=== PATIENT | female | born 1960 | race Caucasian/White ===

== ENCOUNTER → 2016-08-17 | Outpatient (CLI) | payer MEDICARE, OTHER ==
--- NOTE | 2016-08-17 15:57 | CT ---
EXAMINATION TYPE: CT brain wo con DATE OF EXAM: 08/17/2016 3:48 PM COMPARISON: 01/31/2014 HISTORY: 56-year-old female with headache and history of subdural hematoma and aneurysms. TECHNIQUE: Examination was done in axial plane without intravenous contrast. Coronal and sagittal reconstructio ns performed. CT DLP: 968.0 mGycm Automated exposure control for dose reduction was used. FINDINGS: Postsurgical changes of right frontal craniotomy and right frontoparietal and right parietal meka hol es. There is some aneurysmal clipping in the anterior aspect of the right middle cranial fossa in the MCA distribution. There is no evidence of acute intracranial hemorrhage, acute ischemic changes, mass, mass-effect, or extra-axial fluid collection. There is no effacement of cerebral sulci or basal subarachnoid cister ns. There is no hydrocephalus. There is no midline shift. Garrido-white matter distinction is preserv ed. Paranasal sinuses and mastoid air cells are well pneumatized. Orbits and globes are intact. IMPRESSION: Stable exam status post right frontal craniotomy and additional right-sided meka holes. No acute intr acranial abnormality seen.
== END | disposition home or self-care (01) ==
LOC: RADCTMAIN 15:31
PROVIDERS: ATTEND Family Medicine
DX: R51 Headache (principal); Z98.890 Other specified postprocedural states
CPT/HCPCS: 70450

== ENCOUNTER 2017-09-25 10:40 | Inpatient (IN) | payer MEDICARE, OTHER ==
[2017-09-25] MEDS ORDERED: SODIUM CHLORIDE 0.9% 1,000 ML IV STA (11:15)
[2017-09-25] MEDS ORDERED: ASPIRIN 325 MG TAB PO STA (11:16)
[2017-09-25] MEDS ORDERED: LORazepam 2 MG/ML INJ IV STA (11:16)
--- NOTE | 2017-09-25 11:19 | ED ---
General Adult HPI <Don Figueredo - Last Filed: 09/25/17 13:32> - General Source: patient, EMS, RN notes reviewed, old records reviewed Mode of arrival: EMS Limitations: no limitations <Shannon Saravia - Last Filed: 09/25/17 14:01> - General Chief complaint: Altered Mental Status Stated complaint: Hypertension Time Seen by Provider: 09/25/17 10:56 - History of Present Illness Initial comments: This patient is a 57-year-old female presents emergency department today chief complaint of chest pain, shortness of breath, and severe anxiety. Patient reports that on Tuesday she drank alcohol for the first time in 30 years. She states that she did not take her high blood pressure medicine and anxiety medications prior to that because she was drinking. She reports that she became very intoxicated. Patient states that on Tuesday she's had multiple episodes of vomiting, and last night she started to develop chest pain and shortness of breath. She reports that she thinks this may slightly be related to anxiety as patient is upset that she drank alcohol for the first time in 30 years. Patient reports that she has no previous cardiac history. She states that she feels very nauseated. She reports that she did not sleep all night due to vomiting, in the chest pain. (Shannon Saravia) - Related Data Home Medications Medication Instructions Recorded Confirmed Leflunomide [Arava] 20 mg PO DAILY 09/13/15 09/25/17 ALPRAZolam [Xanax] 1 mg PO TID PRN 09/25/17 09/25/17 Albuterol Inhaler [Ventolin Hfa 1 - 2 puff INHALATION RT-Q6H PRN 09/25/17 Inhaler] Amlodipine Unknown Dose 1 tab PO DAILY 09/25/17 09/25/17 Cyclobenzaprine [Flexeril] 10 mg PO TID PRN 09/25/17 09/25/17 Hydroxychloroquine Sulfate 200 mg PO BID 09/25/17 09/25/17 [Plaquenil] Levothyroxine Sodium [Synthroid] 137 mcg PO DAILY 09/25/17 09/25/17 Methotrexate Sodium [Methotrexate] 15 mg PO TH 09/25/17 09/25/17 Prochlorperazine [Compazine] 10 mg PO TID PRN 09/25/17 09/25/17 QUEtiapine FUMARATE [SEROquel] 600 mg PO HS 09/25/17 09/25/17 Sertraline [Zoloft] 100 mg PO BID 09/25/17 09/25/17 Allergies Allergy/AdvReac Type Severity Reaction Status Date / Time No Known Allergies Allergy Verified 09/25/17 10:51 Review of Systems ROS Other: All systems not noted in ROS Statement are negative. <Don Figueredo - Last Filed: 09/25/17 13:32> ROS Other: All systems not noted in ROS Statement are negative. <Shannon Saravia - Last Filed: 09/25/17 14:01> ROS Statement: Those systems with pertinent positive or pertinent negative responses have been documented in the HPI. Past Medical History Past Medical History: Thyroid Disorder Additional Past Medical History / Comment(s): ATHRITIS, VERTIGO, cerebral aneurysm, subdural History of Any Multi-Drug Resistant Organisms: None Reported Past Surgical History: Cholecystectomy Additional Past Surgical History / Comment(s): SUBDURAL HEMATOMA, ANEURYSM Past Psychological History: Anxiety, Bipolar, Depression Smoking Status: Current every day smoker Past Alcohol Use History: None Reported Past Drug Use History: None Reported <Shannon Saravia - Last Filed: 09/25/17 14:01> General Exam <Don Figueredo - Last Filed: 09/25/17 13:32> Limitations: no limitations General appearance: alert, in no apparent distress Head exam: Present: atraumatic, normocephalic, normal inspection Eye exam: Present: normal appearance, PERRL, EOMI. Absent: scleral icterus, conjunctival injection, periorbital swelling ENT exam: Present: normal exam, mucous membranes moist Neck exam: Present: normal inspection. Absent: tenderness, meningismus, lymphadenopathy Respiratory exam: Present: normal lung sounds bilaterally. Absent: respiratory distress, wheezes, rales, rhonchi, stridor Cardiovascular Exam: Present: regular rate, normal rhythm, normal heart sounds. Absent: systolic murmur, diastolic murmur, rubs, gallop, clicks GI/Abdominal exam: Present: soft, normal bowel sounds. Absent: distended, tenderness, guarding, rebound, rigid Back exam: Present: normal inspection Neurological exam: Present: alert, oriented X3, CN II-XII intact Psychiatric exam: Present: normal affect, normal mood Skin exam: Present: warm, dry, intact, normal color. Absent: rash <Shannon Saravia - Last Filed: 09/25/17 14:01> - General Exam Comments Initial Comments: Is a 57-year-old female, patient appears extremely anxious. She is hyperventilating. 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 (Shannon Saravia) Course <Don Figueredo - Last Filed: 09/25/17 13:32> <Shannon Saravia - Last Filed: 09/25/17 14:01> Vital Signs 09/25/17 09/25/17 09/25/17 10:42 12:51 13:40 Temperature 98.3 F Pulse Rate 89 94 88 Respiratory 20 20 20 Rate Blood Pressure 173/104 171/100 163/87 O2 Sat by Pulse 100 97 98 Oximetry - Reevaluation(s) Reevaluation #1: 09/25/17 13:17 Is reevaluated. She reports that she is feeling less anxious and is no or tingling in her fingers at this time. She states that she's continuous mild chest pain that was relieved after the nitro. Patient informed that she had some ischemic changes on EKG as well as elevated troponin. Heparin will be ordered at this time. (Shannon Saravia) EKG Findings - EKG Comments: EKG Findings:: EKG shows sinus rhythm with ST-T wave abnormality concerning appear lateral ischemia. Prolonged QT. Radicular a 75 beats per minute. ME interval 142 ms. QRS duration 70 ms. QTQTC's 484/554. Patient has T-wave inversion in V4 V5. T-wave inversion in the inferior leads. <Shannon Saravia - Last Filed: 09/25/17 14:01> Medical Decision Making - Lab Data Result diagrams: 09/25/17 10:55 09/25/17 11:52 <Don Figueredo - Last Filed: 09/25/17 13:32> - Lab Data Result diagrams: 09/25/17 10:55 09/25/17 11:52 - Radiology Data Radiology results: report reviewed <Shannon Saravia - Last Filed: 09/25/17 14:01> - Medical Decision Making Medical decision making; is a 57-year-old female scone the emergency room because of initially chest pain and numbness and tingling to his extremities. Workup revealed evidence on EKG of a strain pattern this was compared to an EKG that did not approximate 5 years ago and there significant difference. Patient reports this morning earlier in the day she had chest pain followed by numbness and tingling to upper or lower extremities. Labs show MB fraction is 6.3 with a troponin of 0.642. BNP is 4000 with normal chest x-ray. The patient was given Ativan and nitroglycerin both which helped. The patient will be heparinized. The patient be admitted for non-STEMI. [facility] with [facility] with [facility] consultation. I evaluated the patient at bedside and got the patient's history and spoke with family at this time. Dr. Figueredo (Don Figueredo) 57-year-old female presents to return today she went shortness breath chest pain and paresthesias to be hyperventilating when she first arrived. She is given Ativan and aspirin nitro. She reports chest is resolved. She does have some significant changes on EKG compared to previous EKG 2011. Patient case with Dr. Figueredo. He discussed this with Dr. Leiva. Dr. Leiva course the patient be admitted under Dr. Fishman but he will see the patient today. Patient had elevated troponin 0.064. Elevated BNP of 4000. Chest x-ray showed no acute process at this time, no evidence of acute heart failure. Patient was placed on heparin and nitro paste. Consult to cardiology ordered. Continuing to check troponins patient will be on telemetry. (Shannon Saravia) - Lab Data Lab Results 09/25/17 09/25/17 09/25/17 Range/Units 10:55 10:55 11:52 WBC 8.6 (3.8-10.6) k/uL RBC 4.40 (3.80-5.40) m/uL Hgb 14.8 (11.4-16.0) gm/dL Hct 44.0 (34.0-46.0) % MCV 100.1 H (80.0-100.0) fL MCH 33.8 (25.0-35.0) pg MCHC 33.7 (31.0-37.0) g/dL RDW 13.7 (11.5-15.5) % Plt Count 296 (150-450) k/uL Neutrophils % 84 % Lymphocytes % 11 % Monocytes % 3 % Eosinophils % 1 % Basophils % 1 % Neutrophils # 7.2 (1.3-7.7) k/uL Lymphocytes # 0.9 L (1.0-4.8) k/uL Monocytes # 0.3 (0-1.0) k/uL Eosinophils # 0.0 (0-0.7) k/uL Basophils # 0.1 (0-0.2) k/uL PT (9.0-12.0) sec INR (<1.2) APTT (22.0-30.0) sec D-Dimer (<0.60) mg/L FEU Sodium 142 (137-145) mmol/L Potassium 3.7 (3.5-5.1) mmol/L Chloride 108 H (98-107) mmol/L Carbon Dioxide 17 L (22-30) mmol/L Anion Gap 17 mmol/L BUN 13 (7-17) mg/dL Creatinine 0.40 L (0.52-1.04) mg/dL Est GFR (MDRD) Af Amer >60 (>60 ml/min/1.73 sqM) Est GFR (MDRD) Non-Af >60 (>60 ml/min/1.73 sqM) Glucose 104 H (74-99) mg/dL Calcium 9.5 (8.4-10.2) mg/dL Magnesium 2.2 (1.6-2.3) mg/dL Total Bilirubin 1.1 (0.2-1.3) mg/dL AST 45 H (14-36) U/L ALT 28 (9-52) U/L Alkaline Phosphatase 132 H (38-126) U/L Total Creatine Kinase (30-135) U/L CK-MB (CK-2) (0.0-2.4) ng/mL CK-MB (CK-2) Rel Index Troponin I (0.000-0.034) ng/mL NT-Pro-B Natriuret Pep 4000 pg/mL Total Protein 7.8 (6.3-8.2) g/dL Albumin 4.5 (3.5-5.0) g/dL Amylase 52 (30-110) U/L Lipase 63 (23-300) U/L Urine Color Urine Appearance (Clear) Urine pH (5.0-8.0) Ur Specific W[place]rop (1.001-1.035) Urine Protein (Negative) Urine Glucose (UA) (Negative) Urine Blood (Negative) Urine Nitrite (Negative) Urine Bilirubin (Negative) Urine Urobilinogen (<2.0) mg/dL Ur Leukocyte Esterase (Negative) Urine RBC (0-5) /hpf Urine WBC (0-5) /hpf Cellular Casts (0) /lpf Hyaline Casts (0-2) /lpf Urine Mucus (None) /hpf 09/25/17 09/25/17 09/25/17 Range/Units 11:52 11:52 12:05 WBC (3.8-10.6) k/uL RBC (3.80-5.40) m/uL Hgb (11.4-16.0) gm/dL Hct (34.0-46.0) % MCV (80.0-100.0) fL MCH (25.0-35.0) pg MCHC (31.0-37.0) g/dL RDW (11.5-15.5) % Plt Count (150-450) k/uL Neutrophils % % Lymphocytes % % Monocytes % % Eosinophils % % Basophils % % Neutrophils # (1.3-7.7) k/uL Lymphocytes # (1.0-4.8) k/uL Monocytes # (0-1.0) k/uL Eosinophils # (0-0.7) k/uL Basophils # (0-0.2) k/uL PT 10.7 (9.0-12.0) sec INR 1.1 (<1.2) APTT 24.4 (22.0-30.0) sec D-Dimer 0.32 (<0.60) mg/L FEU Sodium (137-145) mmol/L Potassium (3.5-5.1) mmol/L Chloride (98-107) mmol/L Carbon Dioxide (22-30) mmol/L Anion Gap mmol/L BUN (7-17) mg/dL Creatinine (0.52-1.04) mg/dL Est GFR (MDRD) Af Amer (>60 ml/min/1.73 sqM) Est GFR (MDRD) Non-Af (>60 ml/min/1.73 sqM) Glucose (74-99) mg/dL Calcium (8.4-10.2) mg/dL Magnesium (1.6-2.3) mg/dL Total Bilirubin (0.2-1.3) mg/dL AST (14-36) U/L ALT (9-52) U/L Alkaline Phosphatase (38-126) U/L Total Creatine Kinase 391 H (30-135) U/L CK-MB (CK-2) 6.3 H* (0.0-2.4) ng/mL CK-MB (CK-2) Rel Index 1.6 Troponin I 0.643 H* (0.000-0.034) ng/mL NT-Pro-B Natriuret Pep pg/mL Total Protein (6.3-8.2) g/dL Albumin (3.5-5.0) g/dL Amylase (30-110) U/L Lipase (23-300) U/L Urine Color Urine Appearance (Clear) Urine pH (5.0-8.0) Ur Specific [place] (1.001-1.035) Urine Protein (Negative) Urine Glucose (UA) (Negative) Urine Blood (Negative) Urine Nitrite (Negative) Urine Bilirubin (Negative) Urine Urobilinogen (<2.0) mg/dL Ur Leukocyte Esterase (Negative) Urine RBC (0-5) /hpf Urine WBC (0-5) /hpf Cellular Casts (0) /lpf Hyaline Casts (0-2) /lpf Urine Mucus (None) /hpf 09/25/17 Range/Units 13:03 WBC (3.8-10.6) k/uL RBC (3.80-5.40) m/uL Hgb (11.4-16.0) gm/dL Hct (34.0-46.0) % MCV (80.0-100.0) fL MCH (25.0-35.0) pg MCHC (31.0-37.0) g/dL RDW (11.5-15.5) % Plt Count (150-450) k/uL Neutrophils % % Lymphocytes % % Monocytes % % Eosinophils % % Basophils % % Neutrophils # (1.3-7.7) k/uL Lymphocytes # (1.0-4.8) k/uL Monocytes # (0-1.0) k/uL Eosinophils # (0-0.7) k/uL Basophils # (0-0.2) k/uL PT (9.0-12.0) sec INR (<1.2) APTT (22.0-30.0) sec D-Dimer (<0.60) mg/L FEU Sodium (137-145) mmol/L Potassium (3.5-5.1) mmol/L Chloride (98-107) mmol/L Carbon Dioxide (22-30) mmol/L Anion Gap mmol/L BUN (7-17) mg/dL Creatinine (0.52-1.04) mg/dL Est GFR (MDRD) Af Amer (>60 ml/min/1.73 sqM) Est GFR (MDRD) Non-Af (>60 ml/min/1.73 sqM) Glucose (74-99) mg/dL Calcium (8.4-10.2) mg/dL Magnesium (1.6-2.3) mg/dL Total Bilirubin (0.2-1.3) mg/dL AST (14-36) U/L ALT (9-52) U/L Alkaline Phosphatase (38-126) U/L Total Creatine Kinase (30-135) U/L CK-MB (CK-2) (0.0-2.4) ng/mL CK-MB (CK-2) Rel Index Troponin I (0.000-0.034) ng/mL NT-Pro-B Natriuret Pep pg/mL Total Protein (6.3-8.2) g/dL Albumin (3.5-5.0) g/dL Amylase (30-110) U/L Lipase (23-300) U/L Urine Color Yellow Urine Appearance Clear (Clear) Urine pH 6.0 (5.0-8.0) Ur Specific [place] 1.016 (1.001-1.035) Urine Protein 2+ H (Negative) Urine Glucose (UA) Negative (Negative) Urine Blood Trace H (Negative) Urine Nitrite Negative (Negative) Urine Bilirubin Negative (Negative) Urine Urobilinogen <2.0 (<2.0) mg/dL Ur Leukocyte Esterase Negative (Negative) Urine RBC 5 (0-5) /hpf Urine WBC 1 (0-5) /hpf Cellular Casts 3 (0) /lpf Hyaline Casts 3 H (0-2) /lpf Urine Mucus Rare H (None) /hpf - Radiology Data Chest x-rays negative for any acute process. (Shannon Saravia) Disposition <Don Figueredo - Last Filed: 09/25/17 13:32> Time of Disposition: 13:54 <Shannon Saravia - Last Filed: 09/25/17 14:01> Clinical Impression: NSTEMI (non-ST elevated myocardial infarction), Anxiety Disposition: ADMITTED IP TO THIS HOSP Condition: Stable Referrals: Rl Fishman MD [Primary Care Provider] - 1-2 days
[2017-09-25 11:33] LABS: Basophils # (A) 0.1 k/uL (0-0.2); Basophils % (A) 1 %; Eosinophils % (A) 1 %; HGB 14.8 gm/dL (11.4-16.0); Lymphocytes # (A) 0.9 k/uL (1.0-4.8); Lymphocytes % (A) 11 %; MCH 33.8 pg (25.0-35.0); MCHC 33.7 g/dL (31.0-37.0); MCV 100.1 fL (80.0-100.0); Mean Platelet Volume 8.9; Monocytes # (A) 0.3 k/uL (0-1.0); Monocytes % (A) 3 %; Neutrophils # (A) 7.2 k/uL (1.3-7.7); Neutrophils % (A) 84 %; Platelet Count 296 k/uL (150-450); RDW 13.7 % (11.5-15.5); WBC 8.6 k/uL (3.8-10.6)
[2017-09-25] MEDS ORDERED: NITROGLYCERIN SL TABS 0.4 MG TAB SUBLINGUAL STA (12:15)
[2017-09-25 12:18] LABS: INR 1.1 (<1.2); Partial Thromboplastin Time 24.4 sec (22.0-30.0); Prothrombin Time 10.7 sec (9.0-12.0)
[2017-09-25 12:19] LABS: ALT 28 U/L (9-52); AST 45 U/L (14-36); Albumin 4.5 g/dL (3.5-5.0); Alkaline Phosphatase 132 U/L (38-126); Amylase 52 U/L (30-110); Anion Gap 17 mmol/L; Blood Urea Nitrogen 13 mg/dL (7-17); Calcium 9.5 mg/dL (8.4-10.2); Carbon Dioxide 17 mmol/L (22-30); Chloride 108 mmol/L (98-107); Glucose 104 mg/dL (74-99); Lipase 63 U/L (23-300); Magnesium 2.2 mg/dL (1.6-2.3); Potassium 3.7 mmol/L (3.5-5.1); Sodium 142 mmol/L (137-145); Total Bilirubin 1.1 mg/dL (0.2-1.3); Total Protein 7.8 g/dL (6.3-8.2)
--- NOTE | 2017-09-25 12:33 | XR ---
EXAMINATION TYPE: XR chest 2V DATE OF EXAM: 09/25/2017 COMPARISON: 09/30/2011 HISTORY: Chest pain TECHNIQUE: Frontal and lateral views of the chest are obtained. FINDINGS: Heart and mediastinum are normal. Lungs are clear. Diaphragm is normal. Bony thorax is int act. There are chest leads. IMPRESSION: Normal chest
[2017-09-25 12:56] LABS: Creatine Kinase MB 6.3 ng/mL (0.0-2.4); Troponin I 0.643 ng/mL (0.000-0.034)
[2017-09-25] MEDS ORDERED: HEPARIN SODIUM,PORCINE 5,000 UNIT/ML 1 ML VIAL IV ONE (13:04)
[2017-09-25 13:15] LABS: Appearance,Urine Clear (Clear); Bilirubin,Urine Negative (Negative); Blood,Urine Trace (Negative); Cellular Casts,Urine 3 /lpf (0); Color,Urine Yellow; Glucose,Urine (UA) Negative (Negative); Hyaline Casts,Urine 3 /lpf (0-2); Ketones,Urine 4+ (Negative); Leukocyte Esterase,Urine Negative (Negative); Mucus,Urine Rare /hpf; Nitrite,Urine Negative (Negative); Protein,Urine 2+ (Negative); RBC,Urine 5 /hpf (0-5); Specific Gravity,Urine 1.016 (1.001-1.035); Urobilinogen,Urine <2.0 mg/dL (<2.0); WBC,Urine 1 /hpf (0-5)
[2017-09-25] MEDS: HEPARIN SOD,PORK IN 0.45% NACL 25,000 UNIT in 0.45% NACL 1 500ML.BAG IV SCH (13:30)
[2017-09-25] MEDS ORDERED: MORPHINE SULFATE 4 MG/ML SYRINGE IV PRN (13:56)
[2017-09-25] MEDS ORDERED: NITROGLYCERIN OINT 1 INCH/GM PACKET TOPICAL STA (13:59)
[2017-09-25] MEDS ORDERED: PROCHLORPERAZINE 10 MG TAB PO PRN (14:07)
[2017-09-25] MEDS ORDERED: ALPRAZolam 1 MG TAB PO PRN (14:07)
[2017-09-25 17:28] VITALS: BMI 20.9
[2017-09-25] MEDS ORDERED: TEMAZEPAM 15 MG CAP PO PRN (20:19)
[2017-09-25 20:22] LABS: Creatine Kinase MB 5.8 ng/mL (0.0-2.4); Troponin I 0.594 ng/mL (0.000-0.034)
[2017-09-25] MEDS: HYDROXYCHLOROQUINE SULFATE 200 MG TAB PO SCH (20:25)
[2017-09-25] MEDS: METOPROLOL TARTRATE 25 MG TAB PO SCH (20:25)
[2017-09-25] MEDS: QUEtiapine 200 MG TAB PO SCH (20:25)
[2017-09-25] MEDS: SERTRALINE 100 MG TAB PO SCH (20:25)
[2017-09-25 21:17] LABS: ALT 29 U/L (9-52); AST 38 U/L (14-36); Albumin 3.9 g/dL (3.5-5.0); Alkaline Phosphatase 107 U/L (38-126); Anion Gap 10 mmol/L; Blood Urea Nitrogen 17 mg/dL (7-17); Calcium 8.7 mg/dL (8.4-10.2); Carbon Dioxide 22 mmol/L (22-30); Chloride 108 mmol/L (98-107); Glucose 100 mg/dL (74-99); Potassium 3.4 mmol/L (3.5-5.1); Sodium 140 mmol/L (137-145); Total Bilirubin 0.8 mg/dL (0.2-1.3); Total Protein 6.6 g/dL (6.3-8.2)
[2017-09-25] MEDS ORDERED: HEPARIN SODIUM,PORCINE 5,000 UNIT/ML 1 ML VIAL IV STA (21:28)
[2017-09-25] MEDS: CYCLOBENZAPRINE 10 MG TAB PO PRN (21:29)
--- NOTE | 2017-09-25 21:49 | HP ---
HISTORY AND PHYSICAL I am covering for Dr. Fismhan. DATE OF SERVICE: 09/25/2017 CHIEF COMPLAINTS: Chest pain. HISTORY OF PRESENT ILLNESS: This 57-year-old woman with a past medical history of multiple COPD, history of DJD, history of rheumatoid arthritis, history of hypothyroidism, history of anxiety, bipolar depression, history of followed by Dr. Fishman in the outpatient setting was complaining of chest pain. The pain was felt in the anterior part of the chest. The patient also has some shortness of breath. The patient also had severe anxiety. The patient apparently became very intoxicated and patient had episodes of vomiting and patient came to [facility] and was admitted for further evaluation and treatment. The troponins were found to be 0.0643. There is no history of fever , rigors or chills. No history of headache, loss of consciousness or seizures. PAST MEDICAL HISTORY: History of chest pain, history of angina, COPD, history of DJD, GERD history of rheumatoid arthritis, hypothyroidism. MEDICATIONS: Prior to admission include home medications are: 1. Zoloft 100 mg p.o. b.i.d. 2. Seroquel 600 mg q.h.s. 3. Compazine 10 mg t.i.d. p.r.n. 4. Methotrexate 15 mg p.o. 5. Synthroid 137 mcg p.o. 6. Arava 20 mg b.i.d. 7. Plaquenil 220 mg p.o. b.i.d. 8. Flexeril 10 mg p.o. t.i.d. 9. Amlodipine 1 tab p.o. daily. 10.Ventolin HFA 1-2 puffs q.6h p.r.n. 11.Xanax 1 mg p.o. t.i.d. p.r.n. ALLERGIES: None. FAMILY HISTORY: History of coronary artery disease in the family. SOCIAL HISTORY: History of occasional alcohol, history of nicotine dependence. REVIEW OF SYSTEMS: ENT: No diminished hearing or vision. CARDIOVASCULAR: As mentioned earlier. Respiration: As mentioned earlier. GI no nausea or vomiting. : No dysuria. NERVOUS SYSTEM: No numbness or weakness. Allergy/Immunology: No asthma or hay fever. MUSCULOSKELETAL: As mentioned earlier. Hematology/Oncology: No history of anemia. Endocrine: No history of diabetes. Hypothyroidism. Constitutional: As mentioned earlier. Rheumatology: Negative. Dermatology: Negative. Psychiatric: As mentioned earlier. PHYSICAL EXAMINATION: The patient is alert and oriented times three. Pulse 87, blood pressure 160/80. Respiration 18, temperature 98.2, pulse ox 98% on room air. HEENT: Conjunctivae normal. Oral mucosa moist. Neck is no jugular venous distention. No carotid bruit. No lymph nodes enlargement. Cardiovascular is S1, S2. No S3. No S4. Respiration: Breath sounds diminished in the bases. No rhonchi and no crackles. ABDOMEN: Soft, nontender. No mass palpable. Legs no edema and no swelling. Nervous system: Higher functions as mentioned earlier, moves all 4 limbs, no focal motor defects. Lymphatics: No lymph nodes palpable in the neck, axillae or groin. Skin no ulcer, rash or bleeding. LAB STUDIES: MCV 100.1, sodium 142, potassium 3.7, AST 45, alkaline phosphatase 132. Creatinine kinase 391 and troponin 0.643. ASSESSMENT: 1. Chest pain possible unstable angina, acute non ST elevation myocardial infarction troponin 0.643. 2. Increased AST. 3. History of chronic obstructive pulmonary disease. 4. History of degenerative joint disease. 5. History of nicotine dependence. 6. History of rheumatoid arthritis. 7. Hypothyroidism. 8. History of cerebral aneurysm. 9. History of subdural hematoma. 10.History of anxiety/bipolar depression. RECOMMENDATIONS AND DISCUSSION: In this 57-year-old woman who presented with multiple complex medical issues, we will monitor the patient closely, continue the current medications, continue symptomatic treatment, unstable angina protocol. Cardiology consultation. Possible cardiac cath versus stress test. Otherwise resume the home medications. Repeat labs will be ordered. Home medications are reconciled and prognosis guarded. Discussed with the patient. Understands and agrees and further recommendations to follow. Continue Ativan for anxiety. The prognosis guarded and further recommendations to follow. MMODL / IJN: [id number] / MTDD
[2017-09-25] MEDS: HEPARIN SODIUM,PORCINE 5,000 UNIT/ML 1 ML VIAL IV PRN (22:02)
[2017-09-26 01:10] LABS: Creatine Kinase MB 4.6 ng/mL (0.0-2.4); Troponin I 0.436 ng/mL (0.000-0.034)
[2017-09-26 03:24] LABS: Basophils % (A) 1 %; Eosinophils % (A) 1 %; HCT 36.9 % (34.0-46.0); Lymphocytes # (A) 1.6 k/uL (1.0-4.8); Lymphocytes % (A) 26 %; MCH 32.4 pg (25.0-35.0); MCHC 31.4 g/dL (31.0-37.0); Macrocytosis Slight; Mean Platelet Volume 7.6; Monocytes # (A) 0.3 k/uL (0-1.0); Monocytes % (A) 4 %; Neutrophils % (A) 67 %; Platelet Count 219 k/uL (150-450); RBC 3.58 m/uL (3.80-5.40); RDW 13.9 % (11.5-15.5); WBC 6.1 k/uL (3.8-10.6)
[2017-09-26 03:30] LABS: Cholesterol 173 mg/dL (<200); HDL Cholesterol 64 mg/dL (40-60); LDL Cholesterol,Calculated 83 mg/dL (0-99); Triglycerides 130 mg/dL (<150)
[2017-09-26] MEDS: HEPARIN SODIUM,PORCINE 5,000 UNIT/ML 1 ML VIAL IV PRN (03:30)
[2017-09-26 03:31] LABS: Anion Gap 5 mmol/L; Blood Urea Nitrogen 13 mg/dL (7-17); Calcium 8.3 mg/dL (8.4-10.2); Carbon Dioxide 22 mmol/L (22-30); Chloride 112 mmol/L (98-107); Glucose 94 mg/dL (74-99); Potassium 3.4 mmol/L (3.5-5.1); Sodium 139 mmol/L (137-145)
[2017-09-26 03:40] LABS: HGB 11.6 gm/dL (11.4-16.0)
[2017-09-26] MEDS: NITROGLYCERIN SL TABS 0.4 MG TAB SUBLINGUAL PRN ×2 (04:53→04:59)
[2017-09-26] MEDS: LEVOTHYROXINE 137 MCG TAB PO SCH (06:21)
[2017-09-26] MEDS ORDERED: Potassium Replacement Protocol 1 EACH MISC MISCELLANE PRN (06:40)
--- NOTE | 2017-09-26 07:33 | P.PN ---
Subjective Progress Note Date: 09/26/17 Principal diagnosis: NSTEMI This is a continue pressure on a 57-year-old white female essentially admitted for non-ST elevation myocardial infarction. The patient hasn't fact, taken several nitro glycerin recently with relief. Some nausea is noted. The patient is otherwise slight resting comfortably. No voiding difficulties are otherwise stated. Objective - Vital Signs Vital signs: Vital Signs Temp 98.5 F 09/26/17 03:46 Pulse 77 09/26/17 04:56 Resp 18 09/26/17 03:56 BP 105/62 09/26/17 03:46 Pulse Ox 96 09/26/17 03:46 Intake & Output 09/25/17 09/26/17 09/26/17 18:59 06:59 18:59 Intake Total 918.633 Balance 918.633 Weight 58.967 kg 60 kg Intake: IV 500 0.9 500 Intake, IV Titration 218.633 Amount Heparin Sod,Pork in 0.45% 218.633 NaCl 25,000 unit In 0.45 % NaCl 1 500ml.bag @ 12 UNITS/KG/HR 14.15 mls/hr IV .Q24H DAPHNE Rx#: [id number] Oral 200 Other: Voiding Method Toilet # Voids 1 - Constitutional General appearance: Present: average body habitus - EENT Eyes: Absent: abnormal pupil - Respiratory Respiratory: bilateral: CTA - Cardiovascular Rhythm: regular Heart sounds: normal: S1, S2 Abnormal Heart Sounds: Absent: S3 Gallop - Gastrointestinal General gastrointestinal: Present: soft. Absent: tenderness - Neurologic Neurologic: Present: CNII-XII intact - Musculoskeletal Musculoskeletal: Absent: generalized weakness - Psychiatric Psychiatric: Present: A&O x's 3, appropriate affect, intact judgment & insight - Labs CBC & Chem 7: 09/26/17 02:52 09/26/17 02:52 Labs: Abnormal Lab Results - Last 24 Hours (Table) 09/25/17 09/25/17 09/25/17 Range/Units 10:55 11:52 11:52 RBC (3.80-5.40) m/uL MCV 100.1 H (80.0-100.0) fL Lymphocytes # 0.9 L (1.0-4.8) k/uL APTT (22.0-30.0) sec Potassium (3.5-5.1) mmol/L Chloride 108 H (98-107) mmol/L Carbon Dioxide 17 L (22-30) mmol/L Creatinine 0.40 L (0.52-1.04) mg/dL Glucose 104 H (74-99) mg/dL Calcium (8.4-10.2) mg/dL AST 45 H (14-36) U/L Alkaline Phosphatase 132 H (38-126) U/L Total Creatine Kinase 391 H (30-135) U/L CK-MB (CK-2) 6.3 H* (0.0-2.4) ng/mL Troponin I 0.643 H* (0.000-0.034) ng/mL HDL Cholesterol (40-60) mg/dL Urine Protein (Negative) Urine Ketones (Negative) Urine Blood (Negative) Hyaline Casts (0-2) /lpf Urine Mucus (None) /hpf 09/25/17 09/25/17 09/25/17 Range/Units 13:03 18:43 20:45 RBC (3.80-5.40) m/uL MCV (80.0-100.0) fL Lymphocytes # (1.0-4.8) k/uL APTT (22.0-30.0) sec Potassium 3.4 L (3.5-5.1) mmol/L Chloride 108 H (98-107) mmol/L Carbon Dioxide (22-30) mmol/L Creatinine (0.52-1.04) mg/dL Glucose 100 H (74-99) mg/dL Calcium (8.4-10.2) mg/dL AST 38 H (14-36) U/L Alkaline Phosphatase (38-126) U/L Total Creatine Kinase 343 H (30-135) U/L CK-MB (CK-2) 5.8 H* (0.0-2.4) ng/mL Troponin I 0.594 H* (0.000-0.034) ng/mL HDL Cholesterol (40-60) mg/dL Urine Protein 2+ H (Negative) Urine Ketones 4+ H (Negative) Urine Blood Trace H (Negative) Hyaline Casts 3 H (0-2) /lpf Urine Mucus Rare H (None) /hpf 03/05/18 03/05/18 03/05/18 Range/Units 00:11 02:52 02:52 RBC 3.58 L (3.80-5.40) m/uL MCV 103.0 H (80.0-100.0) fL Lymphocytes # (1.0-4.8) k/uL APTT (22.0-30.0) sec Potassium (3.5-5.1) mmol/L Chloride (98-107) mmol/L Carbon Dioxide (22-30) mmol/L Creatinine (0.52-1.04) mg/dL Glucose (74-99) mg/dL Calcium (8.4-10.2) mg/dL AST (14-36) U/L Alkaline Phosphatase (38-126) U/L Total Creatine Kinase 289 H (30-135) U/L CK-MB (CK-2) 4.6 H* (0.0-2.4) ng/mL Troponin I 0.436 H* (0.000-0.034) ng/mL HDL Cholesterol 64 H (40-60) mg/dL Urine Protein (Negative) Urine Ketones (Negative) Urine Blood (Negative) Hyaline Casts (0-2) /lpf Urine Mucus (None) /hpf 18 09/26/17 Range/Units 02:52 02:52 RBC (3.80-5.40) m/uL MCV (80.0-100.0) fL Lymphocytes # (1.0-4.8) k/uL APTT 42.4 H (22.0-30.0) sec Potassium 3.4 L (3.5-5.1) mmol/L Chloride 112 H (98-107) mmol/L Carbon Dioxide (22-30) mmol/L Creatinine 0.50 L (0.52-1.04) mg/dL Glucose (74-99) mg/dL Calcium 8.3 L (8.4-10.2) mg/dL AST (14-36) U/L Alkaline Phosphatase (38-126) U/L Total Creatine Kinase (30-135) U/L CK-MB (CK-2) (0.0-2.4) ng/mL Troponin I (0.000-0.034) ng/mL HDL Cholesterol (40-60) mg/dL Urine Protein (Negative) Urine Ketones (Negative) Urine Blood (Negative) Hyaline Casts (0-2) /lpf Urine Mucus (None) /hpf Assessment and Plan (1) NSTEMI (non-ST elevated myocardial infarction) Current Visit: Yes Status: Acute Code(s): I21.4 - NON-ST ELEVATION (NSTEMI) MYOCARDIAL INFARCTION SNOMED Code(s): 328396920 (2) Anxiety Current Visit: Yes Status: Acute Code(s): F41.9 - ANXIETY DISORDER, UNSPECIFIED SNOMED Code(s): 13796440 Plan: Await full cardiology workup. Question need for cardiac catheterization versus stress testing today. Enzymatic elevation is otherwise noted. Consult home medications. See orders otherwise. Prognosis is guarded.
[2017-09-26] MEDS ORDERED: ASPIRIN 325 MG TAB PO SCH (09:00)
[2017-09-26] MEDS ORDERED: AMLODIPINE PO SCH (09:00)
[2017-09-26] MEDS: POTASSIUM CHLORIDE ER 20 MEQ TAB.ER PO SCH ×2 (09:02→09:36)
[2017-09-26] MEDS: HYDROXYCHLOROQUINE SULFATE 200 MG TAB PO SCH ×2 (09:03→20:26)
[2017-09-26] MEDS: LEFLUNOMIDE 20 MG TAB PO SCH (09:03)
[2017-09-26] MEDS: METOPROLOL TARTRATE 25 MG TAB PO SCH (09:03)
[2017-09-26] MEDS: NICOTINE 14MG/24HR PATCH TRANSDERM SCH (09:03)
[2017-09-26] MEDS: SERTRALINE 100 MG TAB PO SCH ×2 (09:04→20:26)
[2017-09-26] MEDS: LORazepam 0.5 MG TAB PO PRN (09:04)
[2017-09-26] MEDS ORDERED: ALPRAZolam 0.5 MG TAB PO PRN (09:19)
[2017-09-26] MEDS ORDERED: ATORVASTATIN 80 MG TAB PO STA (09:19)
[2017-09-26] MEDS ORDERED: SODIUM CHLORIDE 0.9% 1,000 ML in EMPTY BAG 1 BAG IV ONE (09:19)
[2017-09-26] MEDS ORDERED: ALPRAZolam 0.25 MG TAB PO PRN (09:19)
[2017-09-26] MEDS ORDERED: ASPIRIN 325 MG TAB PO STA (09:19)
[2017-09-26] MEDS ORDERED: NITROGLYCERIN SL TABS 0.4 MG TAB SUBLINGUAL PRN (09:19)
--- NOTE | 2017-09-26 09:51 | P.CRDCN ---
History of Present Illness Consult date: 09/26/17 Requesting physician: Rl Fishman Consult reason: chest pain Chief complaint: Chest pain History of present illness: This is a 57-year-old female with history of COPD, rheumatoid arthritis, anxiety and bipolar disorder, nicotine dependence, depression, prior EtOH abuse, who had apparently quit drinking for quite some time, she states that she was extremely anxious, and started to drink heavily Tuesday and Tuesday, she apparently was quite intoxicated, and had an episode of vomiting. Patient was also experiencing some pressure in her chest. Shortly thereafter she presented to the emergency room. Troponins were checked on admission here patient was admitted. EKG on arrival here showed normal sinus rhythm with ST-T wave changes in the inferior lateral leads. Repeat EKG shows progression of those changes. Chest x-ray normal. Blood pressure on arrival here 173/104, heart rate in the 80s, 100% on room air. Blood pressure this morning 106/60 with a heart rate in the 70s. White blood cell count is normal, hemoglobin on admission 14.8, 11.6 this morning. D-dimer 0.32. Potassium 3.4, BUN 13, creatinine 0.5. Magnesium 2.2, troponins 0.6, 0.5, 0.4. At the time of our examination this morning, patient still complaining of some sternal chest pressure and heaviness. She is currently on IV heparin drip along with aspirin, Nitropaste. We will start the patient on 80 mg of Lipitor now, she has been advised to undergo cardiac catheterization for more definitive diagnosis. The risks and the benefits were explained to the patient in detail. This will be performed this morning by Dr. Josue. Past Medical History Past Medical History: Chest Pain / Angina, COPD, Osteoarthritis (OA), Rheumatoid Arthritis (RA), Thyroid Disorder Additional Past Medical History / Comment(s): ATHRITIS, VERTIGO, cerebral aneurysm, subdural hematoma, left sided aneurysm History of Any Multi-Drug Resistant Organisms: None Reported Past Surgical History: Cholecystectomy Additional Past Surgical History / Comment(s): SUBDURAL HEMATOMA, ANEURYSM Past Anesthesia/Blood Transfusion Reactions: No Reported Reaction Past Psychological History: Anxiety, Bipolar, Depression Smoking Status: Current every day smoker Past Alcohol Use History: Abuse Additional Past Alcohol Use History / Comment(s): Patient states she has been sober for 28 years until last (September 22) when she got "very, very drunk" and drank , Tuesday and into Tuesday due to a period of very high anxiety. Past Drug Use History: None Reported - Past Family History Mother Family Medical History: Coronary Artery Disease (CAD) Father Family Medical History: Cancer Medications and Allergies Home Medications Medication Instructions Recorded Confirmed Type Leflunomide [Arava] 20 mg PO DAILY 09/13/15 09/25/17 History ALPRAZolam [Xanax] 1 mg PO TID PRN 09/25/17 09/25/17 History Albuterol Inhaler [Ventolin Hfa 1 - 2 puff INHALATION RT-Q6H PRN 09/25/17 History Inhaler] Amlodipine Unknown Dose 1 tab PO DAILY 09/25/17 09/25/17 History Cyclobenzaprine [Flexeril] 10 mg PO TID PRN 09/25/17 09/25/17 History Hydroxychloroquine Sulfate 200 mg PO BID 09/25/17 09/25/17 History [Plaquenil] Levothyroxine Sodium [Synthroid] 137 mcg PO DAILY 09/25/17 09/25/17 History Methotrexate Sodium [Methotrexate] 15 mg PO TH 09/25/17 09/25/17 History Prochlorperazine [Compazine] 10 mg PO TID PRN 09/25/17 09/25/17 History QUEtiapine FUMARATE [SEROquel] 600 mg PO HS 09/25/17 09/25/17 History Sertraline [Zoloft] 100 mg PO BID 09/25/17 09/25/17 History Allergies Allergy/AdvReac Type Severity Reaction Status Date / Time No Known Allergies Allergy Verified 09/25/17 10:51 Physical Exam Vitals: Vital Signs Temp Pulse Pulse Resp BP BP Pulse Ox 09/26/17 04:56 77 09/26/17 03:56 79 18 09/26/17 03:46 98.5 F 79 18 105/62 96 09/26/17 00:00 98.7 F 96 18 120/63 96 09/25/17 20:00 98.7 F 88 17 158/85 97 09/25/17 17:07 87 18 09/25/17 16:16 98.2 F 87 18 168/80 98 09/25/17 16:03 97.2 F L 87 16 160/87 96 09/25/17 15:00 98.7 F 93 20 158/88 98 09/25/17 13:40 88 20 163/87 98 09/25/17 12:51 94 20 171/100 97 09/25/17 10:42 98.3 F 89 20 173/104 100 Intake and Output 09/25/17 09/26/17 09/26/17 22:59 06:59 14:59 Intake Total 112.493 806.14 Balance 112.493 806.14 Intake: IV 500 0.9 500 Intake, IV Titration 112.493 106.14 Amount Heparin Sod,Pork in 0.45% 112.493 106.14 NaCl 25,000 unit In 0.45 % NaCl 1 500ml.bag @ 12 UNITS/KG/HR 14.15 mls/hr IV .Q24H [facility] Rx#: [id number] Oral 200 Other: Voiding Method Toilet Toilet # Voids 1 Weight 58.967 kg 60 kg PHYSICAL EXAMINATION: HEENT: Head is atraumatic, normocephalic. Pupils equal, round. Neck is supple. There is no elevated jugular venous pressure. HEART EXAMINATION: Heart S1, S2 normal. No murmur or gallop heard. CHEST EXAMINATION: Lungs are clear to auscultation and precussion. No chest wall tenderness is noted on palpation or with deep breathing. ABDOMEN: Soft, nontender. Bowel sounds are heard. No organomegaly noted. EXTREMITIES: 2+ peripheral pulses with no evidence of peripheral edema and no calf tenderness noted. NEUROLOGIC patient is awake, alert and oriented -3. . Results 09/26/17 02:52 09/26/17 02:52 Cardiac Enzymes 09/25/17 09/25/17 09/25/17 Range/Units 11:52 11:52 18:43 AST 45 H (14-36) U/L CK-MB (CK-2) 6.3 H* 5.8 H* (0.0-2.4) ng/mL Troponin I 0.643 H* 0.594 H* (0.000-0.034) ng/mL 09/25/17 09/26/17 Range/Units 20:45 00:11 AST 38 H (14-36) U/L CK-MB (CK-2) 4.6 H* (0.0-2.4) ng/mL Troponin I 0.436 H* (0.000-0.034) ng/mL Coagulation 09/25/17 09/25/17 09/26/17 Range/Units 11:52 20:45 02:52 PT 10.7 (9.0-12.0) sec APTT 24.4 28.5 42.4 H (22.0-30.0) sec Lipids 09/26/17 Range/Units 02:52 Triglycerides 130 (<150) mg/dL Cholesterol 173 (<200) mg/dL HDL Cholesterol 64 H (40-60) mg/dL CBC 09/25/17 09/26/17 Range/Units 10:55 02:52 WBC 8.6 6.1 (3.8-10.6) k/uL RBC 4.40 3.58 L (3.80-5.40) m/uL Hgb 14.8 11.6 D (11.4-16.0) gm/dL Hct 44.0 36.9 (34.0-46.0) % Plt Count 296 219 (150-450) k/uL Comprehensive Metabolic Panel 09/25/17 09/25/17 09/26/17 Range/Units 11:52 20:45 02:52 Sodium 142 140 139 (137-145) mmol/L Potassium 3.7 3.4 L 3.4 L (3.5-5.1) mmol/L Chloride 108 H 108 H 112 H (98-107) mmol/L Carbon Dioxide 17 L 22 22 (22-30) mmol/L BUN 13 17 13 (7-17) mg/dL Creatinine 0.40 L 0.60 0.50 L (0.52-1.04) mg/dL Glucose 104 H 100 H 94 (74-99) mg/dL Calcium 9.5 8.7 8.3 L (8.4-10.2) mg/dL AST 45 H 38 H (14-36) U/L ALT 28 29 (9-52) U/L Alkaline Phosphatase 132 H 107 (38-126) U/L Total Protein 7.8 6.6 (6.3-8.2) g/dL Albumin 4.5 3.9 (3.5-5.0) g/dL Current Medications Generic Name Dose Route Start Last Admin Trade Name Freq PRN Reason Stop Dose Admin Albuterol Sulfate 2.5 mg 09/25/17 14:07 Ventolin Nebulized INHALATION RT-Q6H PRN Shortness Of Breath Alprazolam 0.25 mg 09/26/17 09:19 Xanax PO Q6HR PRN Mild Anxiety Alprazolam 0.5 mg 09/26/17 09:19 Xanax PO Q6HR PRN Moderate Anxiety Aspirin 325 mg 09/26/17 09:00 09/26/17 09:06 Aspirin PO 325 mg DAILY DAPHNE Administration Cyclobenzaprine HCl 10 mg 09/25/17 14:07 09/25/17 21:29 Flexeril PO 10 mg TID PRN Administration Muscle Pain Heparin Sodium (Porcine) 0 unit 09/25/17 21:49 09/26/17 03:30 Heparin IV 1,475 unit PER PROTOCOL PRN Administration Low PTT Protocol Hydroxychloroquine Sulfate 200 mg 09/25/17 21:00 09/26/17 09:03 Plaquenil PO 200 mg BID DAPHNE Administration Heparin Sodium/Sodium Chloride 500 mls @ 14.15 mls/hr 09/25/17 13:15 03:27 25,000 unit/ Sodium Chloride IV 17 units/kg/hr .Q24H DAPHNE 20.04 mls/hr Protocol Titration 12 UNITS/KG/HR Leflunomide 20 mg 09/26/17 09:00 09/26/17 09:03 Arava PO 20 mg DAILY DAPHNE Administration Levothyroxine Sodium 137 mcg 09/26/17 06:30 09/26/17 06:21 Synthroid PO 137 mcg 0630 DAPHNE Administration Lorazepam 0.5 mg 09/25/17 20:19 09/26/17 09:04 Ativan PO 0.5 mg Q8HR PRN Administration Anxiety Methotrexate 15 mg 09/29/17 12:00 Methotrexate PO TH DAPHNE Metoprolol Tartrate 25 mg 09/25/17 21:00 09/26/17 09:03 Lopressor PO 25 mg BID DAPHNE Administration Miscellaneous Information 1 each 09/26/17 06:40 Potassium Per Protocol MISCELLANE DAILY PRN Per Protocol Protocol Morphine Sulfate 4 mg 09/25/17 13:56 Morphine Sulfate (Inj) IV Q5M PRN Chest Pain Nicotine 1 patch 09/26/17 09:00 09/26/17 09:03 Habitrol 14mg/24hr Patch TRANSDERM 1 patch DAILY DAPHNE Administration Nitroglycerin 0.4 mg 09/25/17 13:04 09/26/17 04:59 Nitrostat SUBLINGUAL 0.4 mg Q5M PRN Administration Chest Pain Nitroglycerin 0.4 mg 09/26/17 09:19 Nitrostat SUBLINGUAL Q5M PRN Chest Pain Non-Formulary Medication 1 tab 09/26/17 09:00 Amlodipine Unknown Dose PO DAILY DAPHNE Prochlorperazine Maleate 10 mg 09/25/17 14:07 Compazine PO TID PRN Nausea Quetiapine Fumarate 600 mg 09/25/17 21:00 09/25/17 20:25 Seroquel PO 600 mg HS DAPHNE Administration Sertraline HCl 100 mg 09/25/17 21:00 09/26/17 09:04 Zoloft PO 100 mg BID DAPHNE Administration Temazepam 15 mg 09/25/17 20:19 Restoril PO HS PRN Insomnia Intake and Output 09/25/17 09/26/17 09/26/17 22:59 06:59 14:59 Intake Total 112.493 806.14 Balance 112.493 806.14 Intake: IV 500 0.9 500 Intake, IV Titration 112.493 106.14 Amount Heparin Sod,Pork in 0.45% 112.493 106.14 NaCl 25,000 unit In 0.45 % NaCl 1 500ml.bag @ 12 UNITS/KG/HR 14.15 mls/hr IV .Q24H [facility] Rx#: [id number] Oral 200 Other: Voiding Method Toilet Toilet # Voids 1 Weight 58.967 kg 60 kg 09/26/17 02:52 09/26/17 02:52 EKG Interpretations (text) EKG shows normal sinus rhythm with ST-T wave changes noted in the inferior lateral leads. Subsequent EKG shows progression of those changes, evidence of ST-T wave changes in the lower anterior leads as well. Assessment and Plan Plan: Assessment and plan #1 symptoms of chest pressure and heaviness with associated EKG changes and a mild abnormality in troponin. Possible non-Q-wave MD, possible stress cardiomyopathy. #2 nicotine dependence #3 accelerated hypertension #4 EtOH intoxication, history of EtOH abuse in the past # 5 anxiety and depression Plan We will obtain a stat echocardiogram with Doppler study. Patient has also been advised to undergo cardiac catheterization for more definitive diagnosis. The risks and the benefits were explained to the patient in detail and she is willing to proceed. Start the patient on Lipitor 80, continue IV heparin along with aspirin and Nitropaste. Further recommendations will be based on these findings and the patient's clinical course. DNP note has been reviewed, I agree with a documented findings and plan of care. Patient was seen and examined.
[2017-09-26] MEDS ORDERED: IV FLUID CONTINUATION 900 ML IV ONE (10:24)
--- NOTE | 2017-09-26 10:25 | P.CRDCN ---
History of Present Illness Reason for Consult (text): Patient interviewed and examined History of present illness Patient came to the hospital complaining of shortness of breath and cough. Later she started complaining of heaviness and chest discomfort in the left precordium that is relieved with nitroglycerin. Abnormal ECG noted on admission with inverted T waves in the lateral precordial leads and inferior leads. Follow-up ECG showed even more prominent T-wave inversions, deep T-wave inversions Past history of cerebral arterial aneurysm status post clipping many years back , possible hypertension, no diabetes, Social history: History of smoking current, history of alcohol use, past history of long-standing alcohol use and now recent alcohol use NO KNOWN DRUG ALLERGIES Medication list at home was reviewed and includes Zoloft, Seroquel, Compazine, methotrexate, Synthroid him a Arava, Plaquenil, Flexeril, amlodipine Review of systems: No fever chills or rigors, + cough, no phlegm or expectoration, no nausea, vomiting or diarrhea, no hematuria, dysuria, no musculoskeletal complaints, no strokes or seizures, no skin lesions. Her main complaint was shortness of breath and a little bit of cough later on discomfort in the chest revealed with nitroglycerin On examination blood pressure is 105/62 mmHg normal respirations heart rates in the 70s, afebrile 98.5F And neck examination is normal no JVD thyromegaly or carotid bruits Breath sounds are normal no rhonchi no crackles Heart sounds are normal no murmurs or gallops no rub Abdomen is soft nontender Extremities warm no edema Twelve-lead ECG as above Labs reviewed Hemoglobin 11.6, potassium 3.4, renal function normal him a normal liver function, elevated CPK with a downward trend and abnormal troponins of 0.59 followed by 0.43 Triglycerides 130, total cholesterol 173, LDL 83, HDL 64 Impression Patient presenting with shortness of breath and later with chest discomfort relieved with nitroglycerin Abnormal ECG with deep T-wave inversions in the lateral precordial leads and inferior leads Abnormal cardiac enzymes consistent with acute myocardial injury, possible non-Q -wave MT Hypertension Suggest 2-D echo and Doppler study. This was done and it revealed anteroapical akinesis Coronary angiography today Discussed with the patient discussed with Dr. leal Start aspirin 81 mg by mouth daily, atorvastatin 80 mg daily, stop amlodipine and start carvedilol 3.125 mg twice daily and maximize, discontinue metoprolol Spironolactone 25 mg by mouth daily Low-dose ARB Past Medical History Past Medical History: Chest Pain / Angina, COPD, Osteoarthritis (OA), Rheumatoid Arthritis (RA), Thyroid Disorder Additional Past Medical History / Comment(s): ATHRITIS, VERTIGO, cerebral aneurysm, subdural hematoma, left sided aneurysm History of Any Multi-Drug Resistant Organisms: None Reported Past Surgical History: Cholecystectomy Additional Past Surgical History / Comment(s): SUBDURAL HEMATOMA, ANEURYSM Past Anesthesia/Blood Transfusion Reactions: No Reported Reaction Past Psychological History: Anxiety, Bipolar, Depression Smoking Status: Current every day smoker Past Alcohol Use History: Abuse Additional Past Alcohol Use History / Comment(s): Patient states she has been sober for 28 years until last (September 22) when she got "very, very drunk" and drank , Tuesday and into Tuesday due to a period of very high anxiety. Past Drug Use History: None Reported - Past Family History Mother Family Medical History: Coronary Artery Disease (CAD) Father Family Medical History: Cancer Medications and Allergies Home Medications Medication Instructions Recorded Confirmed Type Leflunomide [Arava] 20 mg PO DAILY 09/13/15 09/25/17 History ALPRAZolam [Xanax] 1 mg PO TID PRN 09/25/17 09/25/17 History Albuterol Inhaler [Ventolin Hfa 1 - 2 puff INHALATION RT-Q6H PRN 09/25/17 History Inhaler] Amlodipine Unknown Dose 1 tab PO DAILY 09/25/17 09/25/17 History Cyclobenzaprine [Flexeril] 10 mg PO TID PRN 09/25/17 09/25/17 History Hydroxychloroquine Sulfate 200 mg PO BID 09/25/17 09/25/17 History [Plaquenil] Levothyroxine Sodium [Synthroid] 137 mcg PO DAILY 09/25/17 09/25/17 History Methotrexate Sodium [Methotrexate] 15 mg PO TH 09/25/17 09/25/17 History Prochlorperazine [Compazine] 10 mg PO TID PRN 09/25/17 09/25/17 History QUEtiapine FUMARATE [SEROquel] 600 mg PO 09/25/17 09/25/17 History Sertraline [Zoloft] 100 mg PO BID 09/25/17 09/25/17 History Allergies Allergy/AdvReac Type Severity Reaction Status Date / Time No Known Allergies Allergy Verified 09/25/17 10:51 Physical Exam Vitals: Vital Signs Temp Pulse Pulse Resp BP BP Pulse Ox 09/26/17 04:56 77 09/26/17 03:56 79 18 09/26/17 03:46 98.5 F 79 18 105/62 96 09/26/17 00:00 98.7 F 96 18 120/63 96 09/25/17 20:00 98.7 F 88 17 158/85 97 09/25/17 17:07 87 18 09/25/17 16:16 98.2 F 87 18 168/80 98 09/25/17 16:03 97.2 F L 87 16 160/87 96 09/25/17 15:00 98.7 F 93 20 158/88 98 09/25/17 13:40 88 20 163/87 98 09/25/17 12:51 94 20 171/100 97 09/25/17 10:42 98.3 F 89 20 173/104 100 Intake and Output 09/25/17 09/26/17 09/26/17 22:59 06:59 14:59 Intake Total 112.493 806.14 Balance 112.493 806.14 Intake: IV 500 0.9 500 Intake, IV Titration 112.493 106.14 Amount Heparin Sod,Pork in 0.45% 112.493 106.14 NaCl 25,000 unit In 0.45 % NaCl 1 500ml.bag @ 12 UNITS/KG/HR 14.15 mls/hr IV .Q24H [facility] Rx#: [id number] Oral 200 Other: Voiding Method Toilet Toilet # Voids 1 Weight 58.967 kg 60 kg Results 09/26/17 02:52 09/26/17 02:52 Cardiac Enzymes 09/25/17 09/25/17 09/25/17 Range/Units 11:52 11:52 18:43 AST 45 H (14-36) U/L CK-MB (CK-2) 6.3 H* 5.8 H* (0.0-2.4) ng/mL Troponin I 0.643 H* 0.594 H* (0.000-0.034) ng/mL 09/25/17 09/26/17 Range/Units 20:45 00:11 AST 38 H (14-36) U/L CK-MB (CK-2) 4.6 H* (0.0-2.4) ng/mL Troponin I 0.436 H* (0.000-0.034) ng/mL Coagulation 09/25/17 09/25/17 09/26/17 Range/Units 11:52 20:45 02:52 PT 10.7 (9.0-12.0) sec APTT 24.4 28.5 42.4 H (22.0-30.0) sec 09/26/17 Range/Units 09:29 PT (9.0-12.0) sec APTT 45.5 H (22.0-30.0) sec Lipids 09/26/17 Range/Units 02:52 Triglycerides 130 (<150) mg/dL Cholesterol 173 (<200) mg/dL HDL Cholesterol 64 H (40-60) mg/dL CBC 09/25/17 09/26/17 Range/Units 10:55 02:52 WBC 8.6 6.1 (3.8-10.6) k/uL RBC 4.40 3.58 L (3.80-5.40) m/uL Hgb 14.8 11.6 D (11.4-16.0) gm/dL Hct 44.0 36.9 (34.0-46.0) % Plt Count 296 219 (150-450) k/uL Comprehensive Metabolic Panel 09/25/17 09/25/17 09/26/17 Range/Units 11:52 20:45 02:52 Sodium 142 140 139 (137-145) mmol/L Potassium 3.7 3.4 L 3.4 L (3.5-5.1) mmol/L Chloride 108 H 108 H 112 H (98-107) mmol/L Carbon Dioxide 17 L 22 22 (22-30) mmol/L BUN 13 17 13 (7-17) mg/dL Creatinine 0.40 L 0.60 0.50 L (0.52-1.04) mg/dL Glucose 104 H 100 H 94 (74-99) mg/dL Calcium 9.5 8.7 8.3 L (8.4-10.2) mg/dL AST 45 H 38 H (14-36) U/L ALT 28 29 (9-52) U/L Alkaline Phosphatase 132 H 107 (38-126) U/L Total Protein 7.8 6.6 (6.3-8.2) g/dL Albumin 4.5 3.9 (3.5-5.0) g/dL Current Medications Generic Name Dose Route Start Last Admin Trade Name Freq PRN Reason Stop Dose Admin Albuterol Sulfate 2.5 mg 09/25/17 14:07 Ventolin Nebulized INHALATION RT-Q6H PRN Shortness Of Breath Alprazolam 0.25 mg 09/26/17 09:19 Xanax PO Q6HR PRN Mild Anxiety Alprazolam 0.5 mg 09/26/17 09:19 Xanax PO Q6HR PRN Moderate Anxiety Aspirin 81 mg 09/27/17 09:00 Aspirin PO DAILY [facility] Atorvastatin Calcium 80 mg 09/26/17 10:30 Lipitor PO DAILY [facility] Carvedilol 3.125 mg 09/26/17 17:30 Coreg PO BID-W/MEALS [facility] Cyclobenzaprine HCl 10 mg 09/25/17 14:07 09/25/17 21:29 Flexeril PO 10 mg TID PRN Administration Muscle Pain Heparin Sodium (Porcine) 0 unit 09/25/17 21:49 09/26/17 03:30 Heparin IV 1,475 unit PER PROTOCOL PRN Administration Low PTT Protocol Hydroxychloroquine Sulfate 200 mg 09/25/17 21:00 09/26/17 09:03 Plaquenil PO 200 mg BID DAPHNE Administration Heparin Sodium/Sodium Chloride 500 mls @ 14.15 mls/hr 09/25/17 13:15 03:27 25,000 unit/ Sodium Chloride IV 17 units/kg/hr .Q24H DAPHNE 20.04 mls/hr Protocol Titration 12 UNITS/KG/HR Leflunomide 20 mg 09/26/17 09:00 09/26/17 09:03 Arava PO 20 mg DAILY DAPHNE Administration Levothyroxine Sodium 137 mcg 09/26/17 06:30 09/26/17 06:21 Synthroid PO 137 mcg 0630 DAPHNE Administration Lorazepam 0.5 mg 09/25/17 20:19 03/05/18 09:04 Ativan PO 0.5 mg Q8HR PRN Administration Anxiety Methotrexate 15 mg 09/29/17 12:00 Methotrexate PO TH [facility] Morphine Sulfate 4 mg 09/25/17 13:56 Morphine Sulfate (Inj) IV Q5M PRN Chest Pain Nicotine 1 patch 09/26/17 09:00 09/26/17 09:03 Habitrol 14mg/24hr Patch TRANSDERM 1 patch DAILY DAPHNE Administration Nitroglycerin 0.4 mg 09/25/17 13:04 09/26/17 04:59 Nitrostat SUBLINGUAL 0.4 mg Q5M PRN Administration Chest Pain Nitroglycerin 0.4 mg 09/26/17 09:19 Nitrostat SUBLINGUAL Q5M PRN Chest Pain Prochlorperazine Maleate 10 mg 09/25/17 14:07 Compazine PO TID PRN Nausea Quetiapine Fumarate 600 mg 09/25/17 21:00 09/25/17 20:25 Seroquel PO 600 mg HS DAPHNE Administration Sertraline HCl 100 mg 09/25/17 21:00 09/26/17 09:04 Zoloft PO 100 mg BID [facility] Administration Spironolactone 25 mg 09/27/17 09:00 Aldactone PO DAILY [facility] Temazepam 15 mg 09/25/17 20:19 Restoril PO HS PRN Insomnia Intake and Output 09/25/17 09/26/17 09/26/17 22:59 06:59 14:59 Intake Total 112.493 806.14 Balance 112.493 806.14 Intake: IV 500 0.9 500 Intake, IV Titration 112.493 106.14 Amount Heparin Sod,Pork in 0.45% 112.493 106.14 NaCl 25,000 unit In 0.45 % NaCl 1 500ml.bag @ 12 UNITS/KG/HR 14.15 mls/hr IV .Q24H [facility] Rx#: [id number] Oral 200 Other: Voiding Method Toilet Toilet # Voids 1 Weight 58.967 kg 60 kg 09/26/17 02:52 09/26/17 02:52
[2017-09-26] MEDS ORDERED: fentaNYL (PF) 50 MCG/ML 2 ML AMP IV ONE (10:40)
[2017-09-26] MEDS: MIDAZOLAM 2 MG/2 ML VIAL IV ONE ×2 (10:41→10:47)
[2017-09-26] MEDS ORDERED: LIDOCAINE 2% INJ 20 MG/ML SQ ONE (10:44)
[2017-09-26] MEDS ORDERED: IOHEXOL 350 MG/ML 125ML BOTTLE INJ ONE (11:00)
[2017-09-26] MEDS ORDERED: NITROGLYCERIN OINT 1 INCH/GM PACKET TOPICAL ONE (11:01)
[2017-09-26] MEDS ORDERED: METOPROLOL TARTRATE 5 MG/5 ML VIAL IVP ONE (11:01)
[2017-09-26] MEDS ORDERED: RX INFO: IV CONTRAST WAS GIVEN 1 EACH MISC MISCELLANE PRN (11:03)
[2017-09-26] MEDS: HEPARIN SOD,PORK IN 0.45% NACL 25,000 UNIT in 0.45% NACL 1 500ML.BAG IV SCH (11:18)
[2017-09-26] MEDS: SODIUM CHLORIDE 0.9% 1,000 ML IV SCH (11:21)
[2017-09-26] MEDS: HYDROcodone/APAP 5-325MG 1 EACH TAB PO PRN (14:34)
[2017-09-26] MEDS ORDERED: MORPHINE ORAL SOLN 10 MG/5 ML CUP PO PRN (15:10)
[2017-09-26] MEDS: ALBUTEROL NEBULIZED 2.5 MG/3 ML INHALATION PRN (15:20)
[2017-09-26] MEDS: CARVEDILOL 3.125 MG TAB PO SCH (18:16)
--- NOTE | 2017-09-26 19:11 | ECHOF ---
Referral Reason:[facility] MEASUREMENTS -------- HEIGHT: 167.6 cm WEIGHT: 59.9 kg BP: 112/66 RVIDd: 2.3 cm (< 3.3) IVSd: 1.0 cm (0.6 - 1.1) LVIDd: 4.2 cm (3.9 - 5.3) LVPWd: 1.3 cm (0.6 - 1.1) IVSs: 1.4 cm LVIDs: 3.0 cm LVPWs: 1.5 cm LA Diam: 2.9 cm (2.7 - 3.8) Ao Diam: 2.8 cm (2.0 - 3.7) AV Cusp: 2.1 cm (1.5 - 2.6) MV EXCURSION: 11.193 mm (> 18.000) MV EF SLOPE: 74 mm/s (70 - 150) EPSS: 0.9 cm MV E Fausto: 0.87 m/s MV DecT: 214 ms MV A Fausto: 0.91 m/s MV E/A Ratio: 0.96 RAP: 5.00 mmHg RVSP: 24.03 mmHg FINDINGS -------- Sinus rhythm. This was a technically adequate study. The left ventricular size is normal. There is mild concentric left ventricular hypertrophy. Overa ll left ventricular systolic function is mildly impaired with, an EF between 45 - 50 %. Apical ante rior LV wall motion is hypokinetic. Apical lateral LV wall motion is hypokinetic. Apical inferi or LV wall motion is hypokinetic. Apical septum LV wall motion is hypokinetic. The right ventricle is normal in size. The left atrium is normal in size. The right atrium is normal in size. The aortic valve is trileaflet and appears structurally normal. The mitral valve is normal. Mild tricuspid regurgitation present. Right ventricular systolic pressure is normal at < 35 mmHg. There is no pulmonic regurgitation present. The aortic root size is normal. Normal inferior vena cava with normal inspiratory collapse consistent with estimated right atrial pre ssure of 5 mmHg. There is no pericardial effusion. CONCLUSIONS -------- 1. Sinus rhythm. 2. This was a technically adequate study. 3. The left ventricular size is normal. 4. There is mild concentric left ventricular hypertrophy. 5. Overall left ventricular systolic function is mildly impaired with, an EF between 45 - 50 %. 6. Apical anterior LV wall motion is hypokinetic. 7. Apical lateral LV wall motion is hypokinetic. 8. Apical inferior LV wall motion is hypokinetic. 9. Apical septum LV wall motion is hypokinetic. 10. The right ventricle is normal in size. 11. The left atrium is normal in size. 12. The right atrium is normal in size. 13. The aortic valve is trileaflet and appears structurally normal. 14. The mitral valve is normal. 15. Mild tricuspid regurgitation present. 16. Right ventricular systolic pressure is normal at < 35 mmHg. 17. There is no pulmonic regurgitation present. 18. The aortic root size is normal. 19. Normal inferior vena cava with normal inspiratory collapse consistent with estimated right atrial pressure of 5 mmHg. 20. There is no pericardial effusion. B[employer] OPERATOR: Christine Loya RDCS
[2017-09-26] MEDS: QUEtiapine 200 MG TAB PO SCH (20:26)
[2017-09-27] MEDS: SODIUM CHLORIDE 0.9% 1,000 ML IV SCH (01:46)
[2017-09-27] MEDS: HYDROcodone/APAP 5-325MG 1 EACH TAB PO PRN ×4 (04:08→20:04)
[2017-09-27 06:52] LABS: Anion Gap 7 mmol/L; Blood Urea Nitrogen 9 mg/dL (7-17); Calcium 7.9 mg/dL (8.4-10.2); Carbon Dioxide 22 mmol/L (22-30); Chloride 112 mmol/L (98-107); Glucose 85 mg/dL (74-99); Potassium 3.9 mmol/L (3.5-5.1); Sodium 141 mmol/L (137-145)
[2017-09-27] MEDS: LEVOTHYROXINE 137 MCG TAB PO SCH (07:02)
[2017-09-27] MEDS: CARVEDILOL 3.125 MG TAB PO SCH ×2 (07:02→14:54)
[2017-09-27] MEDS: NICOTINE 14MG/24HR PATCH TRANSDERM SCH (08:01)
[2017-09-27] MEDS: LEFLUNOMIDE 20 MG TAB PO SCH (08:02)
[2017-09-27] MEDS: ASPIRIN 81 MG PO SCH (08:02)
[2017-09-27] MEDS: HYDROXYCHLOROQUINE SULFATE 200 MG TAB PO SCH ×2 (08:02→19:49)
[2017-09-27] MEDS: ATORVASTATIN 80 MG TAB PO SCH (08:02)
[2017-09-27] MEDS: SERTRALINE 100 MG TAB PO SCH ×2 (08:02→19:49)
[2017-09-27] MEDS: SPIRONOLACTONE 25 MG TAB PO SCH (08:03)
[2017-09-27] MEDS: HEPARIN SOD,PORK IN 0.45% NACL 25,000 UNIT in 0.45% NACL 1 500ML.BAG IV SCH (08:03)
[2017-09-27] MEDS: LORazepam 0.5 MG TAB PO PRN (08:06)
[2017-09-27] MEDS: CYCLOBENZAPRINE 10 MG TAB PO PRN ×2 (09:56→18:24)
--- NOTE | 2017-09-27 11:12 | P.PN ---
Subjective Principal diagnosis: Patient is doing well. She was admitted with shortness of breath and chest discomfort and abnormal cardiac enzymes. 2-D echo revealed anteroapical hypokinesis. She had deep T-wave inversions that were progressive in the lateral precordial leads and inferior leads with minor abnormalities in the troponins. There was a mismatch between the degree of troponin release and the severity of the ECG changes hence a presumptive diagnosis of Takotsubo syndrome was considered in addition to possible LAD territory occlusive disease. Coronary angiography was performed which revealed normal coronary arteries consistent with a diagnosis of stress cardio myopathy When I last the patient about any stressful situation she had denied but later she admitted to being under a lot of stress at home and recently started drinking again and went on a binge drinking session. She was a heavy drinker in the past but stopped completely. She continues to smoke Impression Acute myocardial injury secondary to stress cardio myopathy, Takotsubo syndrome This does not represent an acute myocardial infarction Suggest Maximize medications for cardio myopathy and keep in the hospital for the next 24 hours as this is done on telemetry I will see her as an outpatient Continue carvedilol spironolactone low-dose losartan and statins. Discontinue amlodipine Full dictation by nurse practitioner Objective - Vital Signs Vital signs: Vital Signs Temp 97.2 F L 09/27/17 08:00 Pulse 74 09/27/17 08:00 Resp 16 09/27/17 08:00 BP 115/71 09/27/17 08:00 Pulse Ox 96 09/27/17 08:00 Intake & Output 09/26/17 09/27/17 09/27/17 18:59 06:59 18:59 Intake Total 1293.58 600 350 Balance 1293.58 600 350 Weight 59.3 kg Intake: IV 1050 600 0.9 950 600 Intake, IV Titration 183.58 Amount Heparin Sod,Pork in 0.45% 123.58 NaCl 25,000 unit In 0.45 % NaCl 1 500ml.bag @ 12 UNITS/KG/HR 14.15 mls/hr IV .Q24H [facility] Rx#: [id number] Sodium Chloride 0.9% 1, 60 000 ml In Empty Bag 1 bag @ 1 ML/KG/HR 60 mls/hr IV .[id number] ONE Rx#: [id number] Oral 60 350 Other: Voiding Method Toilet Toilet # Voids 1 1 - Labs CBC & Chem 7: 09/26/17 02:52 09/27/17 05:52 Labs: Abnormal Lab Results - Last 24 Hours (Table) 09/27/17 Range/Units 05:52 Chloride 112 H (98-107) mmol/L Creatinine 0.50 L (0.52-1.04) mg/dL Calcium 7.9 L (8.4-10.2) mg/dL
--- NOTE | 2017-09-27 12:24 | P.PN ---
Subjective Progress Note Date: 09/27/17 Principal diagnosis: Stress cardiomyopathy This is a 57-year-old female with history of COPD, rheumatoid arthritis, anxiety and bipolar disorder, nicotine dependence, depression, prior EtOH abuse, who had apparently quit drinking for quite some time, she states that she was extremely anxious, and started to drink heavily Tuesday and Tuesday, she apparently was quite intoxicated, and had an episode of vomiting. Patient was also experiencing some pressure in her chest. Shortly thereafter she presented to the emergency room. Troponins were checked on admission here patient was admitted. EKG on arrival here showed normal sinus rhythm with ST-T wave changes in the inferior lateral leads. Repeat EKG shows progression of those changes. Chest x-ray normal. Blood pressure on arrival here 173/104, heart rate in the 80s, 100% on room air. Blood pressure this morning 106/60 with a heart rate in the 70s. White blood cell count is normal, hemoglobin on admission 14.8, 11.6 this morning. D-dimer 0.32. Potassium 3.4, BUN 13, creatinine 0.5. Magnesium 2.2, troponins 0.6, 0.5, 0.4. At the time of our examination this morning, patient still complaining of some sternal chest pressure and heaviness. She is currently on IV heparin drip along with aspirin, Nitropaste. We will start the patient on 80 mg of Lipitor now, she has been advised to undergo cardiac catheterization for more definitive diagnosis. The risks and the benefits were explained to the patient in detail. This will be performed this morning by Dr. Josue. 09/27/2017 Cardiac gram with Doppler study was performed which revealed apical anterior lateral inferior and septal wall hypokinesia with an ejection fraction of 45-50% . Cardiac catheterization was performed which did not reveal any significant obstructive coronary artery disease. EKG showed continued progression of changes in the anterior lateral leads. Clinical picture highly suggestive of stress cardiomyopathy. We will maximize the patient's medication, Continue to monitor for 48 hours. Blood pressure 115/70 heart rate in the 70s. Sodium 141 , potassium 3.9, BUN 9, creatinine 0.5. We will continue aspirin, Lipitor, Coreg, and Aldactone, we will add Cozaar to the medication regime. Objective - Vital Signs Vital signs: Vital Signs Temp 97.2 F L 09/27/17 08:00 Pulse 74 09/27/17 08:00 Resp 16 09/27/17 08:00 BP 115/71 09/27/17 08:00 Pulse Ox 96 09/27/17 08:00 Intake & Output 09/26/17 09/27/17 09/27/17 18:59 06:59 18:59 Intake Total 1293.58 600 350 Balance 1293.58 600 350 Weight 59.3 kg Intake: IV 1050 600 0.9 950 600 Intake, IV Titration 183.58 Amount Heparin Sod,Pork in 0.45% 123.58 NaCl 25,000 unit In 0.45 % NaCl 1 500ml.bag @ 12 UNITS/KG/HR 14.15 mls/hr IV .Q24H [facility] Rx#: [id number] Sodium Chloride 0.9% 1, 60 000 ml In Empty Bag 1 bag @ 1 ML/KG/HR 60 mls/hr IV .[id number] [facility] Rx#: [id number] Oral 60 350 Other: Voiding Method Toilet Toilet # Voids 1 1 - Exam PHYSICAL EXAMINATION: HEENT: Head is atraumatic, normocephalic. Pupils equal, round. Neck is supple. There is no elevated jugular venous pressure. HEART EXAMINATION: Heart S1, S2 normal. No murmur or gallop heard. CHEST EXAMINATION: Lungs are clear to auscultation and precussion. No chest wall tenderness is noted on palpation or with deep breathing. ABDOMEN: Soft, nontender. Bowel sounds are heard. No organomegaly noted. Right groin soft, no evidence of any hematoma. EXTREMITIES: 2+ peripheral pulses with no evidence of peripheral edema and no calf tenderness noted. NEUROLOGIC patient is awake, alert and oriented -3. . - Labs CBC & Chem 7: 09/26/17 02:52 09/27/17 05:52 Labs: Abnormal Lab Results - Last 24 Hours (Table) 09/27/17 Range/Units 05:52 Chloride 112 H (98-107) mmol/L Creatinine 0.50 L (0.52-1.04) mg/dL Calcium 7.9 L (8.4-10.2) mg/dL Assessment and Plan Plan: Assessment and plan #1 symptoms of chest pressure and heaviness with associated EKG changes and a mild abnormality in troponin. Status post cardiac catheterization which did not reveal any significant obstructive coronary artery disease. Echocardiogram with Doppler study revealed anterior septal and apical hypokinesia with an ejection fraction of 45-50%. Clinical picture suggests stress cardiomyopathy. #2 nicotine dependence #3 accelerated hypertension #4 EtOH intoxication, history of EtOH abuse in the past # 5 anxiety and depression Plan We will continue with the patient's current medication, the add losartan to the medication regime today. Continue to monitor for 24-48 hours. DNP note has been reviewed, I agree with a documented findings and plan of care. Patient was seen and examined.
[2017-09-27] MEDS: LOSARTAN 25 MG TAB PO SCH (13:27)
--- NOTE | 2017-09-27 15:37 | P.PN ---
Subjective Principal diagnosis: NSTEMI This is a continue present 57-year-old white female who is essentially admitted for unstable angina with an STEMI. The patient had clean coronary arteries and is now postoperatively doing quite well. No significant chest pain per se. She seems more comfortable. Objective - Vital Signs Vital signs: Vital Signs Temp 98.1 F 09/27/17 14:26 Pulse 79 09/27/17 15:14 Resp 16 09/27/17 15:14 BP 140/82 09/27/17 15:14 Pulse Ox 93 L 09/27/17 14:26 Intake & Output 09/26/17 09/27/17 09/27/17 18:59 06:59 18:59 Intake Total 1293.58 600 590 Balance 1293.58 600 590 Weight 59.3 kg Intake: IV 1050 600 0.9 950 600 Intake, IV Titration 183.58 Amount Heparin Sod,Pork in 0.45% 123.58 NaCl 25,000 unit In 0.45 % NaCl 1 500ml.bag @ 12 UNITS/KG/HR 14.15 mls/hr IV .Q24H [facility] Rx#: [id number] Sodium Chloride 0.9% 1, 60 000 ml In Empty Bag 1 bag @ 1 ML/KG/HR 60 mls/hr IV .[id number] [facility] Rx#: [id number] Oral 60 590 Other: Voiding Method Toilet Toilet # Voids 1 1 - Constitutional General appearance: Absent: average body habitus - EENT Eyes: Absent: abnormal pupil - Neck Neck: Absent: lymphadenopathy - Respiratory Respiratory: bilateral: CTA - Cardiovascular Rhythm: regular Heart sounds: normal: S1, S2 Abnormal Heart Sounds: Present: S3 Gallop - Gastrointestinal General gastrointestinal: Present: soft. Absent: tenderness - Neurologic Neurologic: Present: CNII-XII intact. Absent: focal deficits - Labs CBC & Chem 7: 09/26/17 02:52 09/27/17 05:52 Labs: Abnormal Lab Results - Last 24 Hours (Table) 09/27/17 Range/Units 05:52 Chloride 112 H (98-107) mmol/L Creatinine 0.50 L (0.52-1.04) mg/dL Calcium 7.9 L (8.4-10.2) mg/dL Assessment and Plan (1) NSTEMI (non-ST elevated myocardial infarction) Current Visit: No Status: Acute Code(s): I21.4 - NON-ST ELEVATION (NSTEMI) MYOCARDIAL INFARCTION SNOMED Code(s): 577587979 (2) Anxiety Current Visit: Yes Status: Acute Code(s): F41.9 - ANXIETY DISORDER, UNSPECIFIED SNOMED Code(s): 94242365 Plan: We'll continue to follow. Anticipate discharge in a.m. once cleared by cardiology. Doing quite well. He had a long discussion regarding alcohol use. He orders otherwise. Time with Patient: Less than 30
[2017-09-27] MEDS: QUEtiapine 200 MG TAB PO SCH (19:49)
[2017-09-28] MEDS: CARVEDILOL 3.125 MG TAB PO SCH (06:10)
[2017-09-28] MEDS: LEVOTHYROXINE 137 MCG TAB PO SCH (06:10)
[2017-09-28] MEDS: ALBUTEROL NEBULIZED 2.5 MG/3 ML INHALATION PRN (08:44)
[2017-09-28] MEDS: ATORVASTATIN 80 MG TAB PO SCH (09:19)
[2017-09-28] MEDS: HYDROXYCHLOROQUINE SULFATE 200 MG TAB PO SCH (09:19)
[2017-09-28] MEDS: ASPIRIN 81 MG PO SCH (09:19)
[2017-09-28] MEDS: LOSARTAN 25 MG TAB PO SCH (09:20)
[2017-09-28] MEDS: SERTRALINE 100 MG TAB PO SCH (09:20)
[2017-09-28] MEDS: SPIRONOLACTONE 25 MG TAB PO SCH (09:20)
[2017-09-28] MEDS: NICOTINE 14MG/24HR PATCH TRANSDERM SCH (09:20)
[2017-09-28] MEDS: HYDROcodone/APAP 5-325MG 1 EACH TAB PO PRN (09:20)
[2017-09-28] MEDS: LEFLUNOMIDE 20 MG TAB PO SCH (09:20)
[2017-09-28 09:23] VITALS: PULSE 80
[2017-09-28] MEDS: CYCLOBENZAPRINE 10 MG TAB PO PRN (10:29)
--- NOTE | 2017-09-28 10:56 | CDI ---
Last Revision, June 2017 Documentation Clarification Form Date: 09/28/2017 10:43:00 AM From: Natalia GarciaBanksCOY, CCDS Admit Date: 09/25/2017 3:10:00 PM Patient Name: Paige Simmons Visit Number: [id number] Discharge Date: ATTENTION: The Clinical Documentation Specialists (CDI) and [facility] Coding Staff appreciate your assistance in clarifying documentation. Please respond to the clarification below the line at the bottom and electronically sign. The CDI & [facility] Coding staff will review the response and follow-up if needed. Please note: Queries are made part of the Legal Health Record. If you have any questions, please contact the author of this message via ITS. Dr. Rl Fishman: Per the 09/27 Cardiology progress note: "Impression: Acute myocardial injury secondary to stress cardio myopathy, Takotsubo syndrome. This does not represent an acute myocardial infarction." Per the subsequent attending progress note on 09/27: "This is a .... 57-year-old white female who is essentially admitted for unstable angina with an STEMI." Clinical Indicators: Patient presented with elevated BP (173/104), elevated CKMB & elevated troponins. Lab findings: CKMB 6.3, 5.8, 4.6. Troponins 0.643, 0.594, 0.436. Radiology findings: CXR: wnl Other Clinical Indicators: Patient admitted to not taking her BP meds & anxiety meds, started drinking alcohol again after 30 yrs. Admitted to a lot of stress at home & severe anxiety. Treatment: IV fluid bolus, IV Ativan, Nitro sl, IV Heparin, Nitroplaste, Albuterol INH, O2 prn 2Lnc. In your professional opinion, can you please clarify: STEMI NonSTEMI Stress Cardiomyopathy, Takotsubo Syndrome Other, please specify Unable to determine Please continue to document in your progress notes and discharge summary in order to capture severity of illness and risk of mortality. Include clinical findings that support your diagnosis. The patient has an element of Takatsubo syndrome MTDD
[2017-09-28 11:24] VITALS: BP 136/80; RESP 16; TEMP 97.8
--- NOTE | 2017-09-28 12:09 | P.PN ---
Subjective Progress Note Date: 09/28/17 Principal diagnosis: Stress cardiomyopathy This is a 57-year-old female with history of COPD, rheumatoid arthritis, anxiety and bipolar disorder, nicotine dependence, depression, prior EtOH abuse, who had apparently quit drinking for quite some time, she states that she was extremely anxious, and started to drink heavily Tuesday and Tuesday, she apparently was quite intoxicated, and had an episode of vomiting. Patient was also experiencing some pressure in her chest. Shortly thereafter she presented to the emergency room. Troponins were checked on admission here patient was admitted. EKG on arrival here showed normal sinus rhythm with ST-T wave changes in the inferior lateral leads. Repeat EKG shows progression of those changes. Chest x-ray normal. Blood pressure on arrival here 173/104, heart rate in the 80s, 100% on room air. Blood pressure this morning 106/60 with a heart rate in the 70s. White blood cell count is normal, hemoglobin on admission 14.8, 11.6 this morning. D-dimer 0.32. Potassium 3.4, BUN 13, creatinine 0.5. Magnesium 2.2, troponins 0.6, 0.5, 0.4. At the time of our examination this morning, patient still complaining of some sternal chest pressure and heaviness. She is currently on IV heparin drip along with aspirin, Nitropaste. We will start the patient on 80 mg of Lipitor now, she has been advised to undergo cardiac catheterization for more definitive diagnosis. The risks and the benefits were explained to the patient in detail. This will be performed this morning by Dr. Josue. 09/27/2017 Cardiac gram with Doppler study was performed which revealed apical anterior lateral inferior and septal wall hypokinesia with an ejection fraction of 45-50% . Cardiac catheterization was performed which did not reveal any significant obstructive coronary artery disease. EKG showed continued progression of changes in the anterior lateral leads. Clinical picture highly suggestive of stress cardiomyopathy. We will maximize the patient's medication, Continue to monitor for 48 hours. Blood pressure 115/70 heart rate in the 70s. Sodium 141 , potassium 3.9, BUN 9, creatinine 0.5. We will continue aspirin, Lipitor, Coreg, and Aldactone, we will add Cozaar to the medication regime. 09/28/2017 Patient was seen and examined this morning, feels well, denies any chest discomfort, breathing overall is stable. Blood pressure 136/80 with a heart rate in the 80s. 93% on room air. Sodium 141, potassium 3.9, BUN 9, creatinine 0.5. Objective - Vital Signs Vital signs: Vital Signs Temp 97.8 F 09/28/17 11:22 Pulse 80 09/28/17 11:22 Resp 16 09/28/17 11:22 BP 136/80 09/28/17 11:22 Pulse Ox 93 L 09/28/17 11:22 Intake & Output 09/27/17 09/28/17 09/28/17 18:59 06:59 18:59 Intake Total 590 230 236 Output Total 600 Balance 590 -370 236 Weight 58.6 kg Intake: Oral 590 230 236 Output: Urine 600 Other: Voiding Method Toilet Toilet # Voids 1 2 - Exam PHYSICAL EXAMINATION: HEENT: Head is atraumatic, normocephalic. Pupils equal, round. Neck is supple. There is no elevated jugular venous pressure. HEART EXAMINATION: Heart S1, S2 normal. No murmur or gallop heard. CHEST EXAMINATION: Lungs are clear to auscultation and precussion. No chest wall tenderness is noted on palpation or with deep breathing. ABDOMEN: Soft, nontender. Bowel sounds are heard. No organomegaly noted. Right groin soft, no evidence of any hematoma. EXTREMITIES: 2+ peripheral pulses with no evidence of peripheral edema and no calf tenderness noted. NEUROLOGIC patient is awake, alert and oriented -3. . - Labs CBC & Chem 7: 09/26/17 02:52 09/27/17 05:52 Assessment and Plan Plan: Assessment and plan #1 symptoms of chest pressure and heaviness with associated EKG changes and a mild abnormality in troponin. Status post cardiac catheterization which did not reveal any significant obstructive coronary artery disease. Echocardiogram with Doppler study revealed anterior septal and apical hypokinesia with an ejection fraction of 45-50%. Clinical picture suggests stress cardiomyopathy. #2 nicotine dependence #3 accelerated hypertension #4 EtOH intoxication, history of EtOH abuse in the past # 5 anxiety and depression Plan We will continue with the patient's current medication, patient may be able to be discharged home today from cardiology's perspective. We will make her a follow-up appointment in the office to see Dr. Rhodes post discharge. Patient has been instructed once again regarding the importance of EtOH cessation. Patient states she will also quit smoking, nicotine patches been provided. DNP note has been reviewed, I agree with a documented findings and plan of care. Patient was seen and examined.
--- NOTE | 2017-09-28 17:35 | P.PCN ---
Date of Procedure: 09/26/17 Preoperative Diagnosis: Non-STEMI Postoperative Diagnosis: Normal coronary arteries and evidence of apical ballooning syndrome Procedure(s) Performed: Left heart catheterization with left ventriculography Description of Procedure: HISTORY: This is a 57-year-old female was admitted to the hospital with chest pain and evidence of diffuse T-wave inversions in the anterior leads and positive troponins. Echocardiogram showed apical hypokinesia. Patient is advised to have cardiac catheterization for definitive diagnosis. CONSENT:I have discussed the risks, benefits and alternative therapies for the above-mentioned procedure and for both sedation/analgesia as well as necessary blood product administration, if indicated, as they pertain to this patient. The patient has indicated understanding and acceptance of the risks and procedures discussed. PROCEDURE: Patient was brought to the lab in a fasting state. Patient was given some IV sedation. The right groin is infiltrated with lidocaine and right femoral artery was entered using Seldinger technique. A 6-Grenadian catheter was left in place and selective coronary arteriography and left ventriculography was performed. Patient tolerated the procedure well. Femoral angiogram was performed and Angio-Seal was applied for hemostasis. No immediate complications were noted and patient was transferred to [facility] in a stable condition Conscious Sedation: Versed 2 mg Fentanyl 50 g Duration 17minutes HEMODYNAMICS: SELECTIVE CORONARY ARTERIOGRAPHY: LEFT MAIN: Normal length and patent THE LEFT ANTERIOR DESCENDING CORONARY ARTERY: Fair caliber vessel giving rise to good-sized diagonal branch. The LAD and its branches are free of occlusive disease THE LEFT CIRCUMFLEX AND IS CORONARY ARTERY:. This is a good caliber vessel giving rise to small OM branch. Nondominant in distribution, free of any occlusive disease THE RIGHT CORONARY ARTERY:. This is a dominant vessel giving rise to PDA and PLV. Free of occlusive disease LEFT VENTRICULOGRAPHY:. Showed normal sized Cardec silhouette with a severe hypokinesia of the anteroapical, apical and inferoapical segments. 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 Normal coronaries. Apical ballooning syndrome PLAN: Maximum medical therapy and this factor modification PROGNOSIS: Guarded
[2017-09-29] MEDS ORDERED: METHOTREXATE SODIUM 2.5 MG TAB PO SCH (12:00)
--- NOTE | 2017-10-17 12:58 | P.DS ---
Providers Date of admission: 09/25/17 15:10 Attending physician: Rl Fishman Consults: 09/25/17 13:56 Consult Physician Urgent Consulting Provider: Nathalie Paez Consult Reason/Comments: NSTEMI Do you want consulting provider notified?: Yes Primary care physician: Rl Fishman - Discharge Diagnosis(es) (1) NSTEMI (non-ST elevated myocardial infarction) Status: Acute (2) Anxiety Status: Acute Hospital Course: This is discharged home in a 57-year-old white female essentially admitted for unstable angina. The patient ended up having normal coronary arteries and has an element of Takatsubo syndrome. The patient is discharged in stable condition. Patient Condition at Discharge: Stable Plan - Discharge Summary Discharge Rx Participant: Yes New Discharge Prescriptions: New Aspirin 81 mg PO DAILY chew Atorvastatin [Lipitor] 80 mg PO DAILY #30 tab Carvedilol [Coreg] 3.125 mg PO BID-W/MEALS #30 tab Losartan [Cozaar] 25 mg PO DAILY #30 tab Nicotine 14Mg/24Hr Patch [Habitrol] 1 patch TRANSDERM DAILY #30 patch Nitroglycerin Sl Tabs [Nitrostat] 0.4 mg SUBLINGUAL Q5M PRN #50 tab PRN Reason: Chest Pain Spironolactone [Aldactone] 25 mg PO DAILY #30 tab Continue Leflunomide [Arava] 20 mg PO DAILY Sertraline [Zoloft] 100 mg PO BID Levothyroxine Sodium [Synthroid] 137 mcg PO DAILY QUEtiapine FUMARATE [SEROquel] 600 mg PO HS Prochlorperazine [Compazine] 10 mg PO TID PRN PRN Reason: Nausea Hydroxychloroquine Sulfate [Plaquenil] 200 mg PO BID Cyclobenzaprine [Flexeril] 10 mg PO TID PRN PRN Reason: Pain Methotrexate Sodium [Methotrexate] 15 mg PO TH Albuterol Inhaler [Ventolin Hfa Inhaler] 1 - 2 puff INHALATION RT-Q6H PRN PRN Reason: Shortness Of Breath ALPRAZolam [Xanax] 1 mg PO TID PRN PRN Reason: Anxiety Discontinued Amlodipine Unknown Dose 1 tab PO DAILY Discharge Medication List Leflunomide [Arava] 20 mg PO DAILY 09/13/15 [History] ALPRAZolam [Xanax] 1 mg PO TID PRN 09/25/17 [History] Albuterol Inhaler [Ventolin Hfa Inhaler] 1 - 2 puff INHALATION RT-Q6H PRN [History] Cyclobenzaprine [Flexeril] 10 mg PO TID PRN 09/25/17 [History] Hydroxychloroquine Sulfate [Plaquenil] 200 mg PO BID 09/25/17 [History] Levothyroxine Sodium [Synthroid] 137 mcg PO DAILY 09/25/17 [History] Methotrexate Sodium [Methotrexate] 15 mg PO TH 09/25/17 [History] Prochlorperazine [Compazine] 10 mg PO TID PRN 09/25/17 [History] QUEtiapine FUMARATE [SEROquel] 600 mg PO HS 09/25/17 [History] Sertraline [Zoloft] 100 mg PO BID 09/25/17 [History] Aspirin 81 mg PO DAILY chew 09/28/17 [Rx] Atorvastatin [Lipitor] 80 mg PO DAILY #30 tab 09/28/17 [Rx] Carvedilol [Coreg] 3.125 mg PO BID-W/MEALS #30 tab 09/28/17 [Rx] Losartan [Cozaar] 25 mg PO DAILY #30 tab 09/28/17 [Rx] Nicotine 14Mg/24Hr Patch [Habitrol] 1 patch TRANSDERM DAILY #30 patch 09/28/17 [ Rx] Nitroglycerin Sl Tabs [Nitrostat] 0.4 mg SUBLINGUAL Q5M PRN #50 tab 09/28/17 [Rx ] Spironolactone [Aldactone] 25 mg PO DAILY #30 tab 09/28/17 [Rx] Follow up Appointment(s)/Referral(s): Erasto Merrill MD [STAFF PHYSICIAN] - 2 Weeks (SPOKE TO RN ENDOSCOPY. OFFICE WILL CALL WITH APPOINTMENT TIME) Rl Fishman MD [Primary Care Provider] - 1 Week (Office closed, please call for follow up appointment during normal business hours. ) Patient Instructions/Handouts: *Surgery [facility] - After Heart Catheterization - [facility] Instructions, Heart Healthy Diet (DC) Discharge Disposition: HOME SELF-CARE
--- NOTE | 2017-10-18 17:51 | CDI ---
Last Revision, June 2017 Documentation Clarification Form Date: 10/18/17 From: Tatiana Hoang Anais Ennis, Expressive Music Therapist between 8:30 am & 5 pm Juan Ramon Admit Date: 09/25/2017 3:10:00 PM Patient Name: Paige Simmons Visit Number: [id number] Discharge Date: 09/28/17 ATTENTION: The Clinical Documentation Specialists (CDI) and [facility] Coding Staff appreciate your assistance in clarifying documentation. Please respond to the clarification below the line at the bottom and electronically sign. The CDI & [facility] Coding staff will review the response and follow-up if needed. Please note: Queries are made part of the Legal Health Record. If you have any questions, please contact the author of this message via ITS. Dr. Rl Fishman Conflicting documentation has been found in the medical record. Per the 09/27 Cardiology progress note: "Impression: Acute myocardial injury secondary to stress cardio myopathy, Takotsubo syndrome. This does not represent an acute myocardial infarction." Per your discharge summary the final dx states "Acute NSTEMI" and in the body of the discharge summary you state "element of Takatsubo syndrome". Clinical Indicators: Patient presented with elevated BP (173/104), elevated CKMB & elevated troponins. Lab findings: CKMB 6.3, 5.8, 4.6. Troponins 0.643, 0.594, 0.436. Radiology findings: CXR: wnl Other Clinical Indicators: Patient admitted to not taking her BP meds & anxiety meds, started drinking alcohol again after 30 yrs. Admitted to a lot of stress at home & severe anxiety. Treatment: IV fluid bolus, IV Ativan, Nitro sl, IV Heparin, Nitropaste, Albuterol INH, O2 prn 2Lnc. In order to clarify conflicting diagnosis, please document your final dx, after study, for the patient. NSTEMI ruled out NSTEMI ruled in Other Please continue to document in your progress notes and discharge summary in order to capture severity of illness and risk of mortality. Include clinical findings that support your diagnosis. MTDD
== END 2017-09-28 10:58 | disposition home or self-care (01) | DRG 287 ==
LOC: EC 10:40 → 6SEL 15:10
PROVIDERS: ADMIT Family Medicine; ATTEND Family Medicine
PROC: B2111ZZ Fluoroscopy of Multiple Coronary Arteries using Low Osmolar Contrast (ICD-10-PCS; 2017-09-26)
PROC: B2151ZZ Fluoroscopy of Left Heart using Low Osmolar Contrast (ICD-10-PCS; 2017-09-26)
PROC: 4A023N7 Measurement of Cardiac Sampling and Pressure, Left Heart, Percutaneous Approach (ICD-10-PCS; principal; 2017-09-26 10:24)
DX: I51.81 Takotsubo syndrome (principal); I11.9 Hypertensive heart disease without heart failure; E03.9 Hypothyroidism, unspecified; J44.9 Chronic obstructive pulmonary disease, unspecified; M06.9 Rheumatoid arthritis, unspecified; F41.9 Anxiety disorder, unspecified; F31.9 Bipolar disorder, unspecified; K21.9 Gastro-esophageal reflux disease without esophagitis; F10.129 Alcohol abuse with intoxication, unspecified; F17.200 Nicotine dependence, unspecified, uncomplicated; Z79.899 Other long term (current) drug therapy; M19.91 Primary osteoarthritis, unspecified site; Z87.820 Personal history of traumatic brain injury; Z86.79 Personal history of other diseases of the circulatory system; Z90.49 Acquired absence of other specified parts of digestive tract; Z71.6 Tobacco abuse counseling; Z82.49 Family history of ischemic heart disease and other diseases of the circulatory system
CPT/HCPCS: 36415; 71046; 80048; 80053; 80061; 81001; 82150; 82550; 82553; 83690; 83735; 83880; 84484; 85025; 85379; 85610; 85730; 93005; 93306; 93458; 94640; 96361; 96365; 96366; 96375; 99285

== ENCOUNTER → 2017-11-16 | Outpatient (CLI) | payer MEDICARE, OTHER ==
--- NOTE | 2017-11-16 14:09 | MR ---
EXAMINATION TYPE: MR angio head wo con DATE OF EXAM: 11/16/2017 COMPARISON: Prior MR angiogram dated 04/30/2014 HISTORY: HX of Cerebral aneurysm, Memory loss TECHNIQUE: Time of flight images focusing on the [place] of [place] were performed without contrast. Th ree-dimensional reconstructions performed on an alternate workstation FINDINGS: Susceptibility artifact is noted to the level of the middle cerebral artery on the right. T here is no new aneurysm evident. No evident vascular malformation. No significant interval changes. IMPRESSION: Stable post procedural change.
--- NOTE | 2017-11-16 14:24 | MR ---
EXAMINATION TYPE: MR brain wo/w con DATE OF EXAM: 11/16/2017 COMPARISON: Prior MR brain 04/30/2014 HISTORY: HX of Cerebral aneurysm, Memory loss TECHNIQUE: Multiplanar, multisequence images of the brain and brainstem is performed without and with IV contras t, utilizing 6 mL intravenous Gadavist . FINDINGS: Diffusion weighted images demonstrate no evidence of a recent infarct or other diffusion ab normality. There is no extra-axial fluid collection or significant interval change and white matter signal abnormality, some scattered hyperintensities in the frontal white matter again noted. Suscepti bility artifact is present at the site of patient's previously identified aneurysm repair and is stab le in appearance. The ventricular system and cisternal spaces are normal in size and appearance. Th e brain volume is age appropriate. Midline structures demonstrate normal morphology. The craniocervical junction appears within normal limits. Post contrast images demonstrate no interval change abnormal enhancement, shashi shows a stabl e appearance. The dural venous sinuses appear patent. The visualized sinuses are clear and the globes are intact. Calvarium shows a stable appearance, postop changes are noted IMPRESSION:
== END | disposition home or self-care (01) ==
LOC: RADMRIMAIN 12:00
PROVIDERS: ATTEND Psychiatry & Neurology Neurology
DX: I67.1 Cerebral aneurysm, nonruptured (principal)
CPT/HCPCS: 82565; 70544; 70553; 36415; A9581

== ENCOUNTER 2017-12-07 23:16 | Emergency (ER) | payer MEDICARE, OTHER ==
[2017-12-07 23:55] VITALS: RESP 18
[2017-12-08] MEDS ORDERED: predniSONE 50 MG TAB PO STA (00:20)
--- NOTE | 2017-12-08 00:29 | ED ---
Extremity Problem HPI - General Source: patient, RN notes reviewed Mode of arrival: wheelchair Limitations: no limitations <Maria Luisa Oneill - Last Filed: 12/08/17 00:23> <Dylan Rausch - Last Filed: 12/09/17 06:51> - General Chief complaint: Extremity Problem,Nontraumatic Stated complaint: Hand swelling, pain on limbs Time Seen by Provider: 12/08/17 00:11 - History of Present Illness Initial comments: This is a 57-year-old female who presents to the emergency department with chief complaint of rheumatoid arthritis exacerbation. Patient states that she was diagnosed with a progressive form of rheumatoid arthritis. She states that today she has noticed some increasing pain and swelling in the joints of bilateral hands and her left knee. Denies any injuries or trauma. She requests to have a shot of morphine, stating that she cannot take any ibuprofen or related medications. She states that she does take [place] at home but this is not helping. She states that she does have a follow-up appointment with Dr. Fishman scheduled for next Tuesday. Denies fever, chills, chest pain, shortness of breath, abdominal pain, nausea or vomiting, constipation or diarrhea, dysuria or hematuria, numbness or tingling, headache or vision changes. (Maria Luisa Oneill) - Related Data Home Medications Medication Instructions Recorded Confirmed Leflunomide [Arava] 20 mg PO DAILY 09/13/15 12/08/17 ALPRAZolam [Xanax] 1 mg PO TID PRN 09/25/17 12/08/17 Albuterol Inhaler [Ventolin Hfa 1 - 2 puff INHALATION RT-Q6H PRN 09/25/17 Inhaler] Cyclobenzaprine [Flexeril] 10 mg PO TID PRN 09/25/17 12/08/17 Hydroxychloroquine Sulfate 200 mg PO BID 09/25/17 12/08/17 [Plaquenil] Levothyroxine Sodium [Synthroid] 137 mcg PO DAILY 09/25/17 12/08/17 Methotrexate Sodium [Methotrexate] 15 mg PO TH 09/25/17 12/08/17 Prochlorperazine [Compazine] 10 mg PO TID PRN 09/25/17 12/08/17 QUEtiapine FUMARATE [SEROquel] 600 mg PO HS 09/25/17 12/08/17 Sertraline [Zoloft] 100 mg PO BID 09/25/17 12/08/17 Previous Rx's Medication Instructions Recorded Aspirin 81 mg PO DAILY chew 09/28/17 Atorvastatin [Lipitor] 80 mg PO DAILY #30 tab 09/28/17 Carvedilol [Coreg] 3.125 mg PO BID-W/MEALS #30 tab 09/28/17 Losartan [Cozaar] 25 mg PO DAILY #30 tab 09/28/17 Nicotine 14Mg/24Hr Patch [Habitrol] 1 patch TRANSDERM DAILY #30 patch 09/28/17 Nitroglycerin Sl Tabs [Nitrostat] 0.4 mg SUBLINGUAL Q5M PRN #50 tab 09/28/17 Spironolactone [Aldactone] 25 mg PO DAILY #30 tab 09/28/17 predniSONE 20 mg PO BID #10 tab 12/08/17 Allergies Allergy/AdvReac Type Severity Reaction Status Date / Time No Known Allergies Allergy Verified 12/07/17 23:51 Review of Systems ROS Other: All systems not noted in ROS Statement are negative. <Maria Luisa Oneill - Last Filed: 12/08/17 00:23> ROS Other: All systems not noted in ROS Statement are negative. <Dylan Rausch - Last Filed: 12/09/17 06:51> ROS Statement: Those systems with pertinent positive or pertinent negative responses have been documented in the HPI. Past Medical History Past Medical History: Chest Pain / Angina, COPD, Osteoarthritis (OA), Rheumatoid Arthritis (RA), Thyroid Disorder Additional Past Medical History / Comment(s): ATHRITIS, VERTIGO, cerebral aneurysm, subdural hematoma, left sided aneurysm, recovering alcoholic History of Any Multi-Drug Resistant Organisms: None Reported Past Surgical History: Cholecystectomy Additional Past Surgical History / Comment(s): SUBDURAL HEMATOMA, ANEURYSM Past Anesthesia/Blood Transfusion Reactions: No Reported Reaction Past Psychological History: Anxiety, Bipolar, Depression, Panic Disorder Smoking Status: Current every day smoker Past Alcohol Use History: None Reported Past Drug Use History: Marijuana - Past Family History Mother Family Medical History: Coronary Artery Disease (CAD) Father Family Medical History: Cancer <Maria Luisa Oneill - Last Filed: 12/08/17 00:23> General Exam Limitations: no limitations <Maria Luisa Oneill - Last Filed: 12/08/17 00:23> <Dylan Rausch - Last Filed: 12/09/17 06:51> - General Exam Comments Initial Comments: General: Awake and alert, well-developed; in no apparent distress. Resting comfortably on ED stretcher. HEENT: Head atraumatic, normocephalic. Pupils are equal, round and reactive to light. Extraocular movements intact. Oropharynx moist without erythema or exudate. Neck: Supple. Normal ROM. Cardiovascular: Regular rate and rhythm. No murmurs, rubs or gallops. Chest symmetrical. Respiratory: Lungs clear to auscultation bilaterally. No wheezes, rales or rhonchi. Normal respiratory effort with no use of accessory muscles. Musculoskeletal: Chronic changes noted to bilateral hands with ulnar deviation at the MCP joints and swelling of the MCP joints. Patient has limited range of motion due to pain. Sensation is intact and radial pulses are 2+ equal and palpable bilaterally. Skin: [place], warm and dry without rashes or lesions. Neurological: Alert and oriented x3. CN II-XII grossly intact. Speech is fluent and answers are appropriate. No focal neuro deficits. Psychiatric: Flat affect. (Maria Luisa Oneill) Vital Signs 12/07/17 12/08/17 23:52 01:25 Temperature 98.6 F 97.8 F Pulse Rate 90 79 Respiratory 18 18 Rate Blood Pressure 110/66 138/93 O2 Sat by Pulse 95 98 Oximetry Medical Decision Making <Maria Luisa Oneill - Last Filed: 12/08/17 00:23> <Dylan Rausch - Last Filed: 12/09/17 06:51> - Medical Decision Making This is a 57 rolled female with history of rheumatoid arthritis who presents to the emergency department with chief complaint of exacerbation. Patient states that she has had an increase in pain and swelling of bilateral hands and left knee today. Denies any specific injuries or trauma. She will be started on a course of steroids. Patient did request a shot of morphine but this will not be provided as she already takes [place] at home. Patient states that she is unable to take Toradol or ibuprofen as this interferes with a medication that she was recently started on, however she cannot recall the name of this medication. Patient's vital signs are stable and she is in no acute distress. She'll be discharged home at this time. (Maria Luisa Oneill) I saw this patient in conjunction with the physician printing bindery assistant. I performed independent history and physical exam. Agree with case management. (Dylan Rausch) Disposition Is patient prescribed a controlled substance at d/c from ED?: No Time of Disposition: 00:28 <Maria Luisa Oneill - Last Filed: 12/08/17 00:23> Is patient prescribed a controlled substance at d/c from ED?: No <Dylan Rausch - Last Filed: 12/09/17 06:51> Clinical Impression: Rheumatoid arthritis flare Disposition: HOME SELF-CARE Condition: Good Instructions: Rheumatoid Arthritis (ED) Additional Instructions: Please take medications as prescribed. Please follow up with primary care provider within 1-2 days. Return to emergency department if symptoms should worsen or any concerns arise. Prescriptions: predniSONE 20 mg PO BID #10 tab Referrals: Rl Fishman MD [Primary Care Provider] - 1-2 days
[2017-12-08] MEDS ORDERED: MORPHINE SULFATE 4 MG/ML SYRINGE IM STA (01:12)
[2017-12-08 02:11] VITALS: BP 138/93; PULSE 79; TEMP 97.8
== END 2017-12-08 01:25 | disposition home or self-care (01) ==
LOC: EC 23:16
DX: M06.9 Rheumatoid arthritis, unspecified (principal); J44.9 Chronic obstructive pulmonary disease, unspecified; M19.90 Unspecified osteoarthritis, unspecified site; E07.9 Disorder of thyroid, unspecified; F31.9 Bipolar disorder, unspecified; F41.0 Panic disorder [episodic paroxysmal anxiety]; F17.200 Nicotine dependence, unspecified, uncomplicated; Z79.899 Other long term (current) drug therapy
CPT/HCPCS: 99283; 96372; J2270; J7512

== ENCOUNTER → 2018-01-19 | Outpatient (CLI) | payer MEDICARE, OTHER ==
--- NOTE | 2018-01-19 15:52 | CT ---
EXAMINATION TYPE: CT brain wo con DATE OF EXAM: 01/19/2018 COMPARISON: 08/17/2016 HISTORY: Concussion, history of aneurysm CT DLP: 975.[address] of the brain was performed. Right-sided craniotomy changes with aneurysm clipping noted. The ventricles, basal cisterns and sulci overlying the cerebral convexities demonstrate mild enlargem ent. There is no evidence for intracranial hemorrhage or sulcal effacement. There is decreased attenuation about the periventricular white matter and deep white matter of both c erebral hemispheres, compatible with chronic small vessel ischemia. Differential diagnosis does inclu de demyelination. No mass effects are seen.No midline shift. Osseous calvarium is intact. If symptoms persist consider MRI. IMPRESSION: 1. Age related atrophic and chronic small vessel ischemic change without acute intracranial process s een at this time. Postoperative changes identified without evidence for hemorrhage or acute process.
== END | disposition home or self-care (01) ==
LOC: RADCTMAIN 14:55
PROVIDERS: ATTEND Psychiatry & Neurology Neurology
DX: G31.1 Senile degeneration of brain, not elsewhere classified (principal); I67.82 Cerebral ischemia; Z98.890 Other specified postprocedural states
CPT/HCPCS: 70450

== ENCOUNTER → 2020-04-08 | Outpatient (CLI) | payer MEDICARE, OTHER ==
--- NOTE | 2020-04-09 12:39 | CT ---
EXAMINATION TYPE: CT chest w con DATE OF EXAM: 04/08/2020 COMPARISON: CT chest 01/13/2016. Chest radiograph 03/13/2020. HISTORY: f/u lung ca CT DLP: 140.7 mGycm Automated exposure control for dose reduction was used. CONTRAST: CT scan of the chest is performed with IV Contrast, patient injected with 100 mL of Isovue 300. FINDINGS: LUNGS: Postsurgical changes of the right lung. Centrilobular emphysematous change. Lungs are grossly clear. No concerning parenchymal mass or nodule identified. No pleural effusion. No pneumothorax. The tracheobronchial tree is patent. MEDIASTINUM/SOFT TISSUES: No axillary, hilar, or mediastinal lymphadenopathy greater than 1 cm. Cardi ac size is normal. No pericardial effusion. No thoracic aortic aneurysm. UPPER ABDOMEN: No adrenal nodule. OSSEOUS: No aggressive osseous destructive lesions. Postsurgical changes of the left clavicle. IMPRESSION: No evidence of recurrent or metastatic lung cancer of the chest.
== END | disposition home or self-care (01) ==
LOC: RADCTMAIN 14:17
PROVIDERS: ATTEND Nurse Practitioner Adult Health
DX: Z08 Encounter for follow-up examination after completed treatment for malignant neoplasm (principal); Z85.118 Personal history of other malignant neoplasm of bronchus and lung; Z88.5 Allergy status to narcotic agent
CPT/HCPCS: 71260; Q9967

== ENCOUNTER 2023-10-24 13:25 | Inpatient (IN) | payer MEDICARE, OTHER ==
--- NOTE | 2023-10-24 14:04 | ED ---
General Adult HPI - General Chief complaint: Abdominal Pain Stated complaint: Abd Pain Time Seen by Provider: 10/24/23 13:28 Source: patient, EMS, RN notes reviewed, old records reviewed Mode of arrival: EMS Limitations: no limitations - History of Present Illness Initial comments: 63-year-old female presenting for evaluation of abdominal pain. Patient states she was diagnosed with liver mass at outside hospital within the past 3 weeks. She states she has been seen at urgent care, [facility] emergency department and someone in [place]. She states that she had previous history of lung cancer. She presents today with right-sided abdominal pain, nausea vomiting and diarrhea. No fever. Symptoms have been progressive over the past 3 weeks. - Related Data Home Medications Medication Instructions Recorded Confirmed Leflunomide [Arava] 20 mg PO DAILY 09/13/15 12/08/17 ALPRAZolam [Xanax] 1 mg PO TID PRN 09/25/17 12/08/17 Albuterol Inhaler [Ventolin Hfa 1 - 2 puff INHALATION RT-Q6H PRN 09/25/17 12/08/17 Inhaler] Cyclobenzaprine [Flexeril] 10 mg PO TID PRN 09/25/17 12/08/17 Hydroxychloroquine Sulfate 200 mg PO BID 09/25/17 12/08/17 [Plaquenil] Levothyroxine Sodium [Synthroid] 137 mcg PO DAILY 09/25/17 12/08/17 Prochlorperazine [Compazine] 10 mg PO TID PRN 09/25/17 12/08/17 QUEtiapine FUMARATE [SEROquel] 600 mg PO HS 09/25/17 12/08/17 Sertraline [Zoloft] 100 mg PO BID 09/25/17 12/08/17 metHOTREXate sodium 15 mg PO TH 09/25/17 12/08/17 Previous Rx's Medication Instructions Recorded Aspirin 81 mg PO DAILY chew 09/28/17 Atorvastatin [Lipitor] 80 mg PO DAILY #30 tab 09/28/17 Losartan [Cozaar] 25 mg PO DAILY #30 tab 09/28/17 Nicotine 14Mg/24Hr Patch [Habitrol] 1 patch TRANSDERM DAILY #30 patch 09/28/17 Nitroglycerin Sl Tabs [Nitrostat] 0.4 mg SUBLINGUAL Q5M PRN #50 tab 09/28/17 Spironolactone [Aldactone] 25 mg PO DAILY #30 tab 09/28/17 carvediloL [Coreg] 3.125 mg PO BID-W/MEALS #30 tab 09/28/17 predniSONE [Deltasone] 20 mg PO BID #10 tab 12/08/17 Allergies Allergy/AdvReac Type Severity Reaction Status Date / Time codeine Allergy Rash/Hives Verified 10/24/23 13:53 Review of Systems ROS Statement: Those systems with pertinent positive or pertinent negative responses have been documented in the HPI. ROS Other: All systems not noted in ROS Statement are negative. Past Medical History Past Medical History: Cancer, Chest Pain / Angina, COPD, Osteoarthritis (OA), Rheumatoid Arthritis (RA), Thyroid Disorder Additional Past Medical History / Comment(s): ATHRITIS, VERTIGO, cerebral aneurysm, subdural hematoma, left sided aneurysm, recovering alcoholic History of Any Multi-Drug Resistant Organisms: None Reported Past Surgical History: Cholecystectomy Additional Past Surgical History / Comment(s): SUBDURAL HEMATOMA, ANEURYSM, Lobectomy 2019 Past Anesthesia/Blood Transfusion Reactions: No Reported Reaction Past Psychological History: Anxiety, Bipolar, Depression, Panic Disorder Smoking Status: Current every day smoker Past Alcohol Use History: None Reported Past Drug Use History: None Reported, Marijuana - Past Family History Mother Family Medical History: Coronary Artery Disease (CAD) Father Family Medical History: Cancer General Exam Limitations: no limitations General appearance: alert, in no apparent distress, cachectic Head exam: Present: atraumatic, normocephalic Eye exam: Present: normal appearance, PERRL ENT exam: Present: mucous membranes dry Neck exam: Present: normal inspection Respiratory exam: Present: normal lung sounds bilaterally. Absent: respiratory distress, wheezes Cardiovascular Exam: Present: regular rate, normal rhythm GI/Abdominal exam: Present: soft, tenderness. Absent: distended, guarding, rebound Extremities exam: Present: normal inspection Neurological exam: Present: alert, oriented X3 Psychiatric exam: Present: normal affect, normal mood Skin exam: Present: warm Course Vital Signs 10/24/23 10/24/23 10/24/23 13:33 14:34 15:45 Temperature 99.8 F H Pulse Rate 79 85 79 Respiratory 18 20 16 Rate Blood Pressure 154/90 140/79 153/80 O2 Sat by Pulse 94 L 94 L 96 Oximetry Medical Decision Making - Medical Decision Making Was pt. sent in by a medical professional or institution (JJ Flood, COMPLIANCE DIRECTOR, urgent care, hospital, or senior care...) When possible be specific @ -No Did you speak to anyone other than the patient for history (EMS, parent, family, police, friend...)? What history was obtained from this source @ -No Did you review nursing and triage notes (agree or disagree)? Why? @ -I reviewed and agree with nursing and triage notes Were old charts reviewed (outside hosp., previous admission, EMS record, old EKG, old radiological studies, urgent care reports/EKG's, senior care records)? Report findings @ -No old charts were reviewed Differential Diagnosis (chest pain, altered mental status, abdominal pain women, abdominal pain men, vaginal bleeding, weakness, fever, dyspnea, syncope, headache, dizziness, GI bleed, back pain, seizure, CVA, palpatations, mental health, musculoskeletal)? @ -[M differential abdominal pain EKG interpreted by me (3pts min.). @ -As above X-rays interpreted by me (1pt min.). @ -None done CT interpreted by me (1pt min.). @ -None done U/S interpreted by me (1pt. min.). @ -None done What testing was considered but not performed or refused? (CT, X-rays, U/S, labs)? Why? @ -None What meds were considered but not given or refused? Why? @ -None Did you discuss the management of the patient with other professionals (professionals i.e. JJ Flood, COMPLIANCE DIRECTOR, lab, RT, psych nurse, social science manager, downstream biomanufacturing technician, teacher, probation officer, case filler)? Give summary @ -Case discussed with Dr. Asher who states that she had outpatient CT showing liver lesion and pulmonary nodule. Attempts were made to obtain outpatient workup but have thus far been unsuccessful. Will admit. Was smoking cessation discussed for >3mins.? @ -No Was critical care preformed (if so, how long)? @ -No Were there social determinants of health that impacted care today? How? (Homelessness, low income, unemployed, alcoholism, drug addiction, transportation, low edu. Level, literacy, decrease access to med. care, snf, rehab)? @ -No Was there de-escalation of care discussed even if they declined (Discuss DNR or withdrawal of care, Hospice)? DNR status @ -No What co-morbidities impacted this encounter? (DM, HTN, Smoking, COPD, CAD, Cancer, CVA, ARF, Chemo, Hep., AIDS, mental health diagnosis, sleep apnea, morbid obesity)? @Liver mass, pulmonary nodule Was patient admitted / discharged? Hospital course, mention meds given and route, prescriptions, significant lab abnormalities, going to OR and other pertinent info. @ -[63-year-old female with persistent and recurrent abdominal pain nausea, poor appetite. Patient has normal CBC, normal CMP, negative urinalysis. Stable vitals. I did discuss case at length with her primary care provider Dr. Asher who will admit this patient for further evaluation and treatment. Undiagnosed new problem with uncertain prognosis? @ -No Drug Therapy requiring intensive monitoring for toxicity (Heparin, Nitro, Insulin, Cardizem)? @ -No Were any procedures done? @ -No Diagnosis/symptom? @Abdominal pain, intractable nausea vomiting Acute, or Chronic, or Acute on Chronic? @ -Acute Uncomplicated (without systemic symptoms) or Complicated (systemic symptoms)? @ -Default Side effects of treatment? @ -No Exacerbation, Progression, or Severe Exacerbation? @ -No Poses a threat to life or bodily function? How? (Chest pain, USA, IA, pneumonia, PE, COPD, DKA, ARF, appy, cholecystitis, CVA, Diverticulitis, Homicidal, Suicidal, threat to staff... and all critical care pts) @ -[Low risk at this time - Lab Data Result diagrams: 10/24/23 14:25 10/24/23 14:25 Lab Results 10/24/23 10/24/23 10/24/23 Range/Units 14:25 14:25 14:25 WBC 7.6 (3.8-10.6) k/uL RBC 4.49 (3.80-5.40) m/uL Hgb 13.6 (11.4-16.0) gm/dL Hct 41.3 (34.0-46.0) % MCV 91.9 (80.0-100.0) fL MCH 30.3 (25.0-35.0) pg MCHC 32.9 (31.0-37.0) g/dL RDW 13.9 (11.5-15.5) % Plt Count 334 (150-450) k/uL MPV 8.0 Neutrophils % 74 % Lymphocytes % 19 % Monocytes % 5 % Eosinophils % 1 % Basophils % 0 % Neutrophils # 5.6 (1.3-7.7) k/uL Lymphocytes # 1.4 (1.0-4.8) k/uL Monocytes # 0.4 (0-1.0) k/uL Eosinophils # 0.1 (0-0.7) k/uL Basophils # 0.0 (0-0.2) k/uL PT 11.6 (10.0-12.5) sec INR 1.1 (<1.2) APTT 26.3 (22.0-30.0) sec Sodium 136 L (137-145) mmol/L Potassium 3.7 (3.5-5.1) mmol/L Chloride 106 (98-107) mmol/L Carbon Dioxide 22 (22-30) mmol/L Anion Gap 8 mmol/L BUN 8 (7-17) mg/dL Creatinine 0.34 L (0.52-1.04) mg/dL Est GFR (CKD-EPI)AfAm >90 (>60 ml/min/1.73 sqM) Est GFR (CKD-EPI)NonAf >90 (>60 ml/min/1.73 sqM) Glucose 97 (74-99) mg/dL Plasma Lactic Acid Rk (0.7-2.0) mmol/L Calcium 8.9 (8.4-10.2) mg/dL Total Bilirubin 0.5 (0.2-1.3) mg/dL AST 23 (14-36) U/L ALT 16 (4-34) U/L Alkaline Phosphatase 163 H (38-126) U/L Total Protein 6.7 (6.3-8.2) g/dL Albumin 3.7 (3.5-5.0) g/dL Amylase 43 (30-110) U/L Lipase 25 (23-300) U/L Urine Color Urine Appearance (Clear) Urine pH (5.0-8.0) Ur Specific [place] (1.001-1.035) Urine Protein (Negative) Urine Glucose (UA) (Negative) Urine Ketones (Negative) Urine Blood (Negative) Urine Nitrite (Negative) Urine Bilirubin (Negative) Urine Urobilinogen (<2.0) mg/dL Ur Leukocyte Esterase (Negative) Urine RBC (0-5) /hpf Urine WBC (0-5) /hpf Ur Squamous Epith Cells (0-4) /hpf Hyaline Casts (0-2) /lpf Urine Mucus (None) /hpf 10/24/23 10/24/23 Range/Units 14:25 15:40 WBC (3.8-10.6) k/uL RBC (3.80-5.40) m/uL Hgb (11.4-16.0) gm/dL Hct (34.0-46.0) % MCV (80.0-100.0) fL MCH (25.0-35.0) pg MCHC (31.0-37.0) g/dL RDW (11.5-15.5) % Plt Count (150-450) k/uL MPV Neutrophils % % Lymphocytes % % Monocytes % % Eosinophils % % Basophils % % Neutrophils # (1.3-7.7) k/uL Lymphocytes # (1.0-4.8) k/uL Monocytes # (0-1.0) k/uL Eosinophils # (0-0.7) k/uL Basophils # (0-0.2) k/uL PT (10.0-12.5) sec INR (<1.2) APTT (22.0-30.0) sec Sodium (137-145) mmol/L Potassium (3.5-5.1) mmol/L Chloride (98-107) mmol/L Carbon Dioxide (22-30) mmol/L Anion Gap mmol/L BUN (7-17) mg/dL Creatinine (0.52-1.04) mg/dL Est GFR (CKD-EPI)AfAm (>60 ml/min/1.73 sqM) Est GFR (CKD-EPI)NonAf (>60 ml/min/1.73 sqM) Glucose (74-99) mg/dL Plasma Lactic Acid Rk 0.8 (0.7-2.0) mmol/L Calcium (8.4-10.2) mg/dL Total Bilirubin (0.2-1.3) mg/dL AST (14-36) U/L ALT (4-34) U/L Alkaline Phosphatase (38-126) U/L Total Protein (6.3-8.2) g/dL Albumin (3.5-5.0) g/dL Amylase (30-110) U/L Lipase (23-300) U/L Urine Color Yellow Urine Appearance Clear (Clear) Urine pH 6.0 (5.0-8.0) Ur Specific [place] 1.017 (1.001-1.035) Urine Protein 1+ H (Negative) Urine Glucose (UA) Negative (Negative) Urine Ketones 1+ H (Negative) Urine Blood Negative (Negative) Urine Nitrite Negative (Negative) Urine Bilirubin Negative (Negative) Urine Urobilinogen <2.0 (<2.0) mg/dL Ur Leukocyte Esterase Negative (Negative) Urine RBC 2 (0-5) /hpf Urine WBC 2 (0-5) /hpf Ur Squamous Epith Cells <1 (0-4) /hpf Hyaline Casts 1 (0-2) /lpf Urine Mucus Occasional H (None) /hpf Disposition Clinical Impression: Abdominal pain, Liver mass Disposition: ADMITTED IP TO THIS HOSP Condition: Stable Is patient prescribed a controlled substance at d/c from ED?: No Referrals: Delvis Asher MD [Primary Care Provider] - 1-2 days Time of Disposition: 17:13
[2023-10-24] MEDS: ONDANSETRON ODT 8 MG TAB.RAPDIS PO STA (14:22)
[2023-10-24] MEDS: HYDROmorphone 0.5 MG/0.5 ML SYRINGE IVP STA (14:22)
[2023-10-24] MEDS: SODIUM CHLORIDE 0.9% 500 ML 500 ML IV STA (14:24)
[2023-10-24 14:38] LABS: Basophils % (A) 0 %; Eosinophils # (A) 0.1 k/uL (0-0.7); Eosinophils % (A) 1 %; HCT 41.3 % (34.0-46.0); HGB 13.6 gm/dL (11.4-16.0); Lymphocytes # (A) 1.4 k/uL (1.0-4.8); Lymphocytes % (A) 19 %; MCH 30.3 pg (25.0-35.0); MCHC 32.9 g/dL (31.0-37.0); MCV 91.9 fL (80.0-100.0); Monocytes # (A) 0.4 k/uL (0-1.0); Monocytes % (A) 5 %; Neutrophils # (A) 5.6 k/uL (1.3-7.7); Neutrophils % (A) 74 %; Platelet Count 334 k/uL (150-450); RBC 4.49 m/uL (3.80-5.40); RDW 13.9 % (11.5-15.5); WBC 7.6 k/uL (3.8-10.6)
[2023-10-24 14:40] LABS: INR 1.1 (<1.2); Partial Thromboplastin Time 26.3 sec (22.0-30.0); Prothrombin Time 11.6 sec (10.0-12.5)
[2023-10-24 14:54] LABS: ALT 16 U/L (4-34); AST 23 U/L (14-36); African American GFR (CKD) >90 (>60 ml/min/1.73 sqM); Albumin 3.7 g/dL (3.5-5.0); Alkaline Phosphatase 163 U/L (38-126); Amylase 43 U/L (30-110); Anion Gap 8 mmol/L; Blood Urea Nitrogen 8 mg/dL (7-17); Calcium 8.9 mg/dL (8.4-10.2); Carbon Dioxide 22 mmol/L (22-30); Chloride 106 mmol/L (98-107); Glucose 97 mg/dL (74-99); Lipase 25 U/L (23-300); Non-African American GFR(CKD) >90 (>60 ml/min/1.73 sqM); Potassium 3.7 mmol/L (3.5-5.1); Sodium 136 mmol/L (137-145); Total Bilirubin 0.5 mg/dL (0.2-1.3); Total Protein 6.7 g/dL (6.3-8.2)
[2023-10-24 15:59] LABS: Appearance,Urine Clear (Clear); Bilirubin,Urine Negative (Negative); Blood,Urine Negative (Negative); Color,Urine Yellow; Glucose,Urine (UA) Negative (Negative); Hyaline Casts,Urine 1 /lpf (0-2); Ketones,Urine 1+ (Negative); Leukocyte Esterase,Urine Negative (Negative); Mucus,Urine Occasional /hpf; Nitrite,Urine Negative (Negative); Protein,Urine 1+ (Negative); RBC,Urine 2 /hpf (0-5); Specific Gravity,Urine 1.017 (1.001-1.035); Squamous Epithelial Cell,Urine <1 /hpf (0-4); Urobilinogen,Urine <2.0 mg/dL (<2.0); WBC,Urine 2 /hpf (0-5)
[2023-10-24] MEDS ORDERED: NALOXONE 0.4 MG/ML 1 ML VIAL IV PRN (17:08)
[2023-10-24] MEDS: HYDROmorphone 0.5 MG/0.5 ML SYRINGE IVP PRN (18:25)
[2023-10-24] MEDS: SODIUM CHLORIDE 0.9% 1,000 ML IV SCH (18:26)
[2023-10-24] MEDS: ONDANSETRON 4 MG/2 ML VIAL IVP PRN (21:22)
[2023-10-24] MEDS ORDERED: ALBUTEROL NEBULIZED 2.5 MG/3 ML INHALATION PRN (21:30)
[2023-10-24] MEDS ORDERED: QUEtiapine 400 MG TAB PO SCH (21:45)
[2023-10-24] MEDS: SERTRALINE 100 MG TAB PO SCH (23:04)
[2023-10-24] MEDS: QUEtiapine 100 MG TAB PO SCH (23:05)
[2023-10-24] MEDS: MEMANTINE 10 MG TAB PO SCH (23:05)
[2023-10-25] MEDS: LEVOTHYROXINE 100 MCG TAB PO SCH (04:37)
[2023-10-25] MEDS: IPRATROPIUM-ALBUTEROL 3 ML NEB INHALATION SCH (08:36)
[2023-10-25] MEDS: SYMBICORT 80-4.5 MCG INHALER INHALATION SCH (08:36)
[2023-10-25] MEDS: QUEtiapine 100 MG TAB PO SCH (08:41)
[2023-10-25] MEDS: lisinopriL 10 MG TAB PO SCH (08:41)
[2023-10-25] MEDS: PANTOPRAZOLE 40 MG TABLET PO SCH (08:41)
[2023-10-25] MEDS: ATORVASTATIN 40 MG TAB PO SCH (08:41)
[2023-10-25 10:44] VITALS: BMI 15.4
[2023-10-25] MEDS: QUEtiapine 200 MG TAB PO SCH (22:18)
[2023-10-26] MEDS: ALPRAZolam 0.5 MG TAB PO PRN (01:01)
--- NOTE | 2023-10-26 13:44 | CDI ---
Documentation Clarification Form Date: 10/26/2023 01:21:09 PM From: Alanis Londono RN CCDS Phone: [phone] Admit Date: 10/24/2023 05:09:00 PM Patient Name: Paige Simmons Visit Number: [id number] Discharge Date: ATTENTION: The Clinical Documentation Specialists (CDI) and [facility] Coding Staff appreciate your assistance in clarifying documentation. Please respond to the clarification below the line at the bottom and electronically sign. The CDI & [facility] Coding staff will review the response and follow-up if needed. Please note: Queries are made part of the Legal Health Record. If you have any questions, please contact the author of this message via ITS. Dr. Delvis Asher Malnutrition is documented 10/24, Nutritional assessment by Dietitian. Additional clarification regarding the severity of malnutrition is requested. History/Risk Factors: 63-year-old female presents to the ED with intractable abdominal pain, nausea, vomiting and diarrhea. Medical History: recent diagnosis of liver mass. ED note, 10/23 Clinical Indicators: RD Consult Assessment: MST = 2 (14 -23# wt loss) Nutritional intake: Poor, 0-25% consumed. Nutritional concerns: Abdominal distention, Diarrhea, Nausea and vomiting. Labs 10/23 NA 136, CR 0.34. The patient is underweight. Current BMI:15.4; Wgt 40.823kg Hgt 5ft 4in Estimated Needs in Kcals: Energy needs 1825Kcal. KCAL comment MSJ BMR = 948 x 1.4 AF + 500 for wt gain. Patient meeing <25% of est.calorie needs. Estimated Protein Needs: Estimated protein range 1.2g/kg; Estimated protein needs 50grams/day. Protein comment: Patient meeting <10% of est protein needs. Estimated Fluid Needs: Fluid formula 1ml/Kcal , Estimated fluid needs 1825mls/day Treatment: Increase PO intake from 50% - 75%, Tolerating PO diet by discharge. Clear liquids per surgery team: RD recommends full liquids as able. Monitor PO intake. Supplements: Ensure clear TID, Monitor supplement intake. Please clarify the severity of malnutrition, if known: [ ] Severe Protein-Calorie Malnutrition [ ] Other condition, please specify [ ] Unable to Determine (Template Last Revised: January 2023) MTDD
[2023-10-26] MEDS: IOPAMIDOL CONTRAST (ORAL USE) VIAL PO PRN (14:54)
--- NOTE | 2023-10-26 18:17 | CT ---
EXAMINATION TYPE: CT ChestAbdPelvis w con CT DLP: 523.8 mGycm, Automated exposure control for dose reduction was used. DATE OF EXAM: 10/26/2023 5:02 PM COMPARISON: 04/08/2020 CLINICAL INDICATION:Female, 63 years old with history of liver mass, hx lung cancer; PHH, lung CA Technique: CT ChestAbdPelvis w con; Multiple axial images were obtained. Two-dimensional coronal and sagittal reconstructions were obtained. Contrast used:100 mL of Isovue 300 with IV Contrast, Oral contrast used: with Oral Contrast Findings: CHEST: LUNGS/ PLEURA: No Evidence for focal consolidation, pneumothorax pleural effusion. Scattered streaky atelectasis and/or scarring. Left upper lung irregular shaped nodule measuring up to 8 mm. Other scat tered pulmonary nodules are present, examples include right lower lung 5 mm series 3 image 42, 6 mm s eries 3 image 46, left lower lung 6 mm image 47 left lower lung 6 mm image 47. Left upper lung 4 mm i mage 20 Suspected postsurgical changes to the right lung with lobectomy. AIRWAY: Patent and unremarkable. HEART: Size within normal limits. MEDIASTINUM: No gross evidence of adenopathy. VASCULATURE: No aortic aneurysm. MUSCULOSKELETAL: No acute osseous abnormalities. Fixation plate on the left distal clavicle appears i ntact. SOFT TISSUES/LYMPH NODES: Bilateral breast implants appear intact. Prominent lymph nodes are seen in the axilla bilaterally measuring up to 11 mm on the left and 9 mm on the right. LOWER NECK: No significant findings. ABDOMEN: ABDOMEN LIVER: Heterogenous appearance of the left hepatic lobe with masslike area measuring 54 x 55 mm. GALLBLADDER AND BILE DUCTS: Gallbladder is surgically absent with mild intrahepatic and extra hepatic biliary dilatation likely physiologic and a postcholecystectomy change. No evidence of choledocholit hiasis. PANCREAS: Unremarkable. SPLEEN: Unremarkable. ADRENAL GLANDS: Unremarkable. KIDNEYS AND URETERS: No evidence of hydronephrosis or renal calculus. The ureters are unremarkable. PELVIS BLADDER: Unremarkable REPRODUCTIVE: Unremarkable. ABDOMEN & PELVIS STOMACH AND BOWEL: No evidence of bowel obstruction. PERITONEUM: No evidence of pneumoperitoneum or free fluid. VASCULATURE: No evidence of aortic aneurysm. MUSCULOSKELETAL: No acute osseous abnormalities LYMPH NODES: Retroperitoneal lymph nodes which are prominent as seen. Example includes 10 mm short ax is series 3 image 81 12 mm in short axis series 374. SOFT TISSUE/ABDOMINAL WALL: Unremarkable IMPRESSION: 1. Scattered pulmonary nodules, enlarging hepatic mass and scattered retroperitoneal lymph nodes con cerning for metastatic disease. 2. Bilateral prominent axillary lymph nodes which are indeterminate. Findings similar to prior 2019
--- NOTE | 2023-10-26 21:37 | P.CONS ---
History of Present Illness - Reason for Consult Consult date: 10/26/23 liver mass Requesting physician: Delvis Asher - Chief Complaint abd pain, n/v/d - History of Present Illness Patient is a 63 year old female with a significant history of brain aneurysms with subdural hematomas at least 2 craniotomies, lung cancer, nicotine depend ence and previous history of ETOH abuse. Patient was seen in the ER at [facility], in November 2017 for concern for possible brain aneurysm or carotid dissection. A CT of the neck revealed a spiculated nodule in the right upper lobe incidentally. The patient was referred to cardiothoracic surgery at the time was not able to keep her appointments that she was incarcerated. She had a CT scan of the chest which confirmed a solitary spiculated nodule in the right upper lobe that was suspicious. The patient missed several appointments in the subsequent months for various reasons. She was ultimately seen in 08/12, by Dr. Rogers, CT surgery. She had a PET scan done, which showed intense uptake in the right upper lobe density, with no evidence of uptake at other sites. The patient subsequently underwent robotic-assisted right upper lobectomy and lymph node dissection on 08/10/18. 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 Margins were negative, with no evidence of pleural invasion. The patient had a somewhat complicated post op course including need for bronchoscopy for mucous plugging. She was then in rehabilitation for more than a month and a half. After discharge, she continued to have some personal issues and followed up with CT surgery several months after her initial operation. She was advised to establish follow-up with oncology and was therefore referred here by her primary care physician and seen in March 2019. She had a MRI brain and CT CAP which were negative for any evidence of recurrent malignancy. She was placed on surveillance, with repeat scans ordered in 3 months. She never obtained ordered scans and was subsequently lost to follow up. Patient presented to the emergency room with complaints of abdominal pain, nausea vomiting diarrhea. She reports symptoms have been ongoing for approximately 1 month. She states that she was seen at [facility] couple weeks ago for similar symptoms, and was diagnosed with a liver mass that was found on imaging. She also reports since, she had follow-up with a doctor in [place] but does not recall his name who wanted her to set up a biopsy but she has yet to do so. Reports associated 20 lb unintentional weight loss. Denies dysphagia, denies blood in stool and melena. Last colonoscopy was greater than 5 years ago. She denies any breathing changes. She reports she is still smoking approximately 5 cigarettes a week after restarting smoking 1 year ago. CBC r eviewed, WBC 7.6, hemoglobin 13.6, platelets 334,000. LFTs, bilirubin, lipase and amylase WNL. UA negative for UTI. CT abdomen pelvis with IV contrast only obtained on 10/02/23 was reviewed from [facility], revealing a 6.2 cm heterogeneously enhancing mass of the left hepatic dome. Small 1.2 cm lesion of the right liver lobe. Small pulmonary nodules at the lower lungs measuring up to 5 mm. Retroperitoneal and upper abdominal adenopathy measuring up to 2.1 cm. New fluid dilatation of the first part of the duodenum. Distance between the SMA and the abdominal aorta is narrowed to 5 mm, possibility of SMA syndrome. Review of Systems 10 point ROS is negative except as stated in the HPI Past Medical History Past Medical History: Cancer, Chest Pain / Angina, COPD, Osteoarthritis (OA), Rheumatoid Arthritis (RA), Thyroid Disorder Additional Past Medical History / Comment(s): ATHRITIS, VERTIGO, cerebral aneurysm, subdural hematoma, left sided aneurysm, recovering alcoholic History of Any Multi-Drug Resistant Organisms: None Reported Past Surgical History: Cholecystectomy Additional Past Surgical History / Comment(s): SUBDURAL HEMATOMA, ANEURYSM, Lobectomy 2019 Past Anesthesia/Blood Transfusion Reactions: No Reported Reaction Past Psychological History: Anxiety, Bipolar, Depression, Panic Disorder Smoking Status: Current every day smoker Past Alcohol Use History: None Reported Additional Past Alcohol Use History / Comment(s): Patient states she has been sober for 28 years until last (September 22) when she got "very, very drunk" and drank , Tuesday and into Tuesday due to a period of very high anxiety. Past Drug Use History: None Reported, Marijuana Additional Drug Use History / Comment(s): 3 to 4 cigarettes daily. - Past Family History Mother Family Medical History: Dementia Father Family Medical History: Cancer Additional Family Medical History / Comment(s): mouth cancer Brother(s) Family Medical History: Cancer Additional Family Medical History / Comment(s): lung cancer Medications and Allergies Home Medications Medication Instructions Recorded Confirmed Type Albuterol Inhaler [Ventolin Hfa 2 puff INHALATION RT-QID PRN 09/25/17 10/24/23 History Inhaler] Sertraline [Zoloft] 100 mg PO BID 09/25/17 10/24/23 History ALPRAZolam [Xanax] 0.5 mg PO TID PRN 10/24/23 10/24/23 History Atorvastatin [Lipitor] 40 mg PO DAILY 10/24/23 10/24/23 History Budesonide/Formoterol Fumarate 2 puff INHALATION RT-BID 10/24/23 10/24/23 History [Symbicort 80-4.5 Mcg Inhaler] Cholecalciferol [Vitamin D3 (25 50 mcg PO DAILY 10/24/23 10/24/23 History Mcg = 1000 Iu)] HYDROmorphone [Dilaudid] 4 mg PO Q6H PRN 10/24/23 10/24/23 History Ipratropium-Albuterol Nebulize 3 ml INHALATION RT-QID 10/24/23 10/24/23 History [Duoneb 0.5 mg-3 mg/3 ml Soln] Levothyroxine Sodium [Synthroid] 200 mcg PO DAILY 10/24/23 10/24/23 History Meloxicam [Mobic] 7.5 mg PO BID PRN 10/24/23 10/24/23 History Memantine [Namenda] 10 mg PO BID 10/24/23 10/24/23 History Pantoprazole Sodium [Protonix] 20 mg PO DAILY 10/24/23 10/24/23 History QUEtiapine FUMARATE [SEROquel XR] 600 mg PO HS 10/24/23 10/24/23 History QUEtiapine [SEROquel] 100 mg PO BID@0900,1200 10/24/23 10/24/23 History hydrOXYzine HCL [Atarax] 50 mg PO TID PRN 10/24/23 10/24/23 History lisinopriL [Zestril] 10 mg PO DAILY 10/24/23 10/24/23 History traMADol HCL 50 mg PO DAILY PRN 10/24/23 10/24/23 History Allergies Allergy/AdvReac Type Severity Reaction Status Date / Time codeine Allergy Rash/Hives Verified 10/24/23 18:38 Physical Exam Vitals: Vital Signs Temp Pulse Pulse Pulse Resp BP BP 10/26/23 07:51 68 10/26/23 07:42 67 10/26/23 07:20 97.9 F 68 20 119/78 10/26/23 01:13 98.0 F 81 16 96/62 10/25/23 20:00 16 10/25/23 19:50 98.5 F 76 123/77 10/25/23 19:29 77 10/25/23 19:17 80 10/25/23 15:37 72 10/25/23 15:26 72 10/25/23 12:31 98.5 F 82 18 103/72 10/25/23 12:06 72 10/25/23 11:54 72 Pulse Ox 10/26/23 07:51 10/26/23 07:42 10/26/23 07:20 95 10/26/23 01:13 92 L 10/25/23 20:00 10/25/23 19:50 92 L 10/25/23 19:29 10/25/23 19:17 10/25/23 15:37 10/25/23 15:26 10/25/23 12:31 93 L 10/25/23 12:06 10/25/23 11:54 Intake and Output 10/25/23 10/26/23 10/26/23 22:59 06:59 14:59 Intake Total 900 Balance 900 Intake: Intake, IV Titration 900 Amount Sodium Chloride 0.9% 1, 900 000 ml @ 75 mls/hr IV . [id number] [facility] Rx#:[id number] Other: # Voids 1 - Constitutional General appearance: no acute distress - EENT Eyes: anicteric sclerae, EOMI ENT: hearing grossly normal - Neck Neck: no lymphadenopathy - Respiratory Respiratory: bilateral: CTA - Cardiovascular Rhythm: regular Heart sounds: normal: S1, S2 - Gastrointestinal mild tenderness RUQ/epigastrium, with no guarding General gastrointestinal: hepatomegaly, tenderness - Integumentary Integumentary: no cyanotic, no jaundiced - Neurologic Neurologic: CNII-XII intact - Musculoskeletal Musculoskeletal: strength equal bilaterally - Psychiatric Psychiatric: A&O x's 3 Results CBC & Chem 7: 10/24/23 14:25 10/24/23 14:25 CT scan - abdomen: report reviewed CT scan - pelvis: report reviewed Assessment and Plan (1) Abdominal pain Current Visit: Yes Status: Acute Priority: High Code(s): R10.9 - UNSPECIFIED ABDOMINAL PAIN SNOMED Code(s): 59845164 (2) Liver mass Current Visit: Yes Status: Acute Priority: High Code(s): R16.0 - HEPATOMEGALY, NOT ELSEWHERE CLASSIFIED SNOMED Code(s): 143255575 Plan: Liver mass, abd pain: Presented with complaints of abdominal pain, and nausea vomiting diarrhea, for approx 1 month, with associated 20 lb unintentional weight loss. She states that she was seen at [facility] couple weeks ago for similar symptoms, and was diagnosed with a liver mass that was found on imaging. She also reports since, she had follow-up with a doctor in [place] but does not recall his name who wanted her to set up a biopsy but she has yet to do so. -CT abdomen pelvis with IV contrast obtained on 10/02/23 at [facility] was reviewed, revealing a 6.2 cm heterogeneously enhancing mass of the left hepatic dome. Small 1.2 cm lesion of the right liver lobe. Small pulmonary nodules at the lower lungs measuring up to 5 mm. Retroperitoneal and upper abdominal adenopathy measuring up to 2.1 cm. New fluid dilatation of the first part of the duodenum. Distance between the SMA and the abdominal aorta is narrowed to 5 mm, possibility of SMA syndrome -Discussed results with patient and concerns for malignancy. She was agreeable to proceed with further testing and biopsy -CT CAP with IV and oral contrast ordered -IR consult placed for liver biopsy Lung cancer: -Previous history of squamous cell carcinoma of right lung. She was seen in 08/12, by Dr. Rogers, CT surgery. She had a PET scan done, which showed intense uptake in the right upper lobe density, with no evidence of uptake at other sites. The patient subsequently underwent robotic-assisted right upper lobectomy and lymph node dissection on 08/10/18. 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 Margins were negative, with no evidence of pleural invasion. -She established care with Dr. Sapp in March 2019. She had a MRI brain and CT CAP which were negative for any evidence of recurrent malignancy. She was placed on surveillance, with repeat scans ordered in 3 months. However, she never obtained ordered scans and was subsequently lost to follow up Dr attests: I have performed H&P and developed impression and plan of care for patient, discussed with dictator. I agree with dictated note, documented as a scribe
--- NOTE | 2023-10-26 22:51 | PN ---
PROGRESS NOTE DATE OF SERVICE: 10/26/2023 CHIEF COMPLAINT: Abdominal pain and hepatic mass. HISTORY OF PRESENT ILLNESS: This lady is doing well. She is being evaluated by Oncology. PHYSICAL EXAMINATION: CHEST: Clear. CARDIAC: Normal. ABDOMEN: Soft, nontender. IMPRESSION: Abdominal pain with liver mass. PLAN: Continue oncologic workup. MMODL / IJN: [id number] /
--- NOTE | 2023-10-26 23:11 | PN ---
PROGRESS NOTE DATE OF SERVICE: 10/25/2023 CHIEF COMPLAINT: Abdominal pain and history of carcinoma of the lung. HISTORY OF PRESENT ILLNESS: This lady is a little bit more uncomfortable than she has been. She is referred to Oncology. She is having some episodes of nausea and vomiting. PHYSICAL EXAMINATION: GENERAL: She remains pale. CHEST: Clear. CARDIAC: Normal. ABDOMEN: Somewhat tender over the epigastrium. IMPRESSION: 1. History of carcinoma of the lung. 2. Possible carcinoma of the liver. 3. Nausea and vomiting. 4. Chronic obstructive pulmonary disease. PLAN: Antiemetics and await oncology evaluation. MMODL / IJN: [id number] /
--- NOTE | 2023-10-27 | HP ---
HISTORY AND PHYSICAL CHIEF COMPLAINT: Abdominal pain. HISTORY OF PRESENT ILLNESS: This is another admission for this 63-year-old female who has had a prior history of carcinoma of the lung. She recently developed some abdominal pain and has been identified as having a mass in the liver. She presented to the emergency room with pain and she was admitted. REVIEW OF SYSTEMS: She is not having any headaches, confusion, vomiting, hematemesis, melena, hematochezia, jaundice, hepatitis, renal failure, dysuria, frequency, etc. Past medical history, family history, and personal and social histories reveal that she has a history of rheumatoid arthritis, hypertension, hypothyroidism, hyperlipidemia, and COPD. MEDICATIONS: She is currently on, 1. Levothyroxine. 2. Atorvastatin. 3. Vitamin D. 4. Lisinopril. 5. Memantine. 6. She has been taking Dilaudid for pain. 7. She also takes Xanax occasionally. 8. She uses albuterol and Symbicort. 9. She also uses Seroquel. ALLERGIES: She is allergic to codeine. Remainder of her history is unchanged and unremarkable. PHYSICAL EXAMINATION: VITAL SIGNS: Normal. GENERAL: She appears to be pale, asthenic, and chronically ill. HEENT: Head, ears, eyes, nose, mouth and throat were normal. CHEST: Clear. CARDIAC: Normal. ABDOMEN: Soft and nontender and there may be fullness in the mid or upper abdomen. DIAGNOSES: She was admitted to the hospital with diagnoses, 1. Abdominal pain. 2. Hepatic mass. 3. Chronic obstructive pulmonary disease. 4. History of carcinoma of the lung. PLAN: 1. Bed rest. 2. IV fluids. 3. Consult with Oncology. MMODL / IJN: [id number] /
[2023-10-27 12:21] LABS: African American GFR (CKD) >90 (>60 ml/min/1.73 sqM); Blood Urea Nitrogen 5 mg/dL (7-17); Non-African American GFR(CKD) >90 (>60 ml/min/1.73 sqM)
[2023-10-27] MEDS: IOPAMIDOL CONTRAST (ORAL USE) VIAL PO PRN (15:57)
[2023-10-27] MEDS: HYDROmorphone 1 MG/ML 1 ML SYRINGE IVP PRN (15:57)
--- NOTE | 2023-10-27 17:05 | P.PN ---
Progress Note - Text Progress Note Date: 10/27/23 Liver mass, abd pain: Presented with complaints of abdominal pain, and nausea vomiting diarrhea, for approx 1 month, with associated 20 lb unintentional weight loss. She states that she was seen at [facility] couple weeks ago for similar symptoms, and was diagnosed with a liver mass that was found on imaging. She also reports since, she had follow-up with a doctor in [place] but does not recall his name who wanted her to set up a biopsy but she has yet to do so. -CT abdomen pelvis with IV contrast obtained on 10/02/23 at [facility] was reviewed, revealing a 6.2 cm heterogeneously enhancing mass of the left hepatic dome. Small 1.2 cm lesion of the right liver lobe. Small pulmonary nodules at the lower lungs measuring up to 5 mm. Retroperitoneal and upper abdominal adenopathy measuring up to 2.1 cm. New fluid dilatation of the first part of the duodenum. Distance between the SMA and the abdominal aorta is narrowed to 5 mm, possibility of SMA syndrome -Discussed results with patient and concerns for malignancy. She was agreeable to proceed with further testing and biopsy -CT CAP with IV and oral contrast ordered. Scan showing scattered pulmonary nodules, enlarging hepatic mass measuring 54 x 55 mm. Scattered retroperitoneal lymph nodes. Bilateral prominent axillary nodes which are indeterminant, findings similar to previous study on 04/08/2020. -IR consult placed for liver biopsy. Spoke with interventional radiology department today requesting additional imaging of liver prior to proceeding with liver biopsy. Will obtain multiphase liver CT. Awaiting further communication from IR department if they will proceed with procedure. Lung cancer: -Previous history of squamous cell carcinoma of right lung. She was seen in 08/12, by Dr. Rogers, CT surgery. She had a PET scan done, which showed intense uptake in the right upper lobe density, with no evidence of uptake at other sites. The patient subsequently underwent robotic-assisted right upper lobectomy and lymph node dissection on 08/10/18. 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 Margins were negative, with no evidence of pleural invasion. -She established care with Dr. Sapp in March 2019. She had a MRI brain and CT CAP which were negative for any evidence of recurrent malignancy. She was placed on surveillance, with repeat scans ordered in 3 months. However, she never obtained ordered scans and was subsequently lost to follow up
--- NOTE | 2023-10-27 17:45 | CT ---
EXAMINATION TYPE: CT Abdomen wo/w con DATE OF EXAM: 10/27/2023 HISTORY: LIVER MASS. Inpatient. TECHNIQUE: Helical acquisition of images was performed from the lung bases through the top of iliac crest to include entire abdomen. Automated exposure control for dose reduction was used. Total DLP: 1 128 mGycm. CONTRAST: Performed with Oral Contrast and without and with IV Contrast, patient injected with 100 ml mL of Isovue 300. COMPARISON: CT Chest Abdomen Pelvis 10/26/2023 FINDINGS: LUNG BASES: Bilateral pulmonary nodules redemonstrated. LIVER/GB: 5.5 x 5.4 x 3.5 cm CC ill-defined infiltrative lesion in segment 2 is redemonstrated. The l esion does not hyperenhance on arterial phase imaging but dilated serpentine arterial hypervascularit y is seen supplying the lesion (page 87 of 337). The lesion is hypodense to liver parenchyma on arter ial phase, portal venous phase, and delayed phase imaging but shows mild increase in contrast enhance ment on all 3 phases. These features can be seen with metastases but also peripheral intrahepatic cho langiocarcinoma. There are scattered subcentimeter hypodensities on all 3 phases, compatible with hepatic cysts. Howev er, if necessary, MRI characterization can and specificity. There is mild prominence to the intrahepatic biliary system but no extrahepatic biliary dilation. PANCREAS: Pancreatic parenchyma and ductal anatomy is unremarkable. SPLEEN: No splenomegaly or focal lesions. ADRENALS: No nodules. KIDNEYS: No significant abnormality is seen. BOWEL: No significant abnormality is seen. LYMPH NODES: No significant abnormality is seen. OSSEOUS STRUCTURES: No significant abnormality is seen. VASCULATURE: Unremarkable. IMPRESSION: 5.5 cm left hepatic lobe lesion as discussed.
[2023-10-27] MEDS: SENNOSIDES 8.6 MG TAB PO SCH (20:11)
[2023-10-28] MEDS: ACETAMINOPHEN TAB 325 MG TAB PO PRN (02:20)
[2023-10-28] MEDS: HYDROmorphone 0.5 MG/0.5 ML SYRINGE IVP PRN ×2 (12:29→17:39)
--- NOTE | 2023-10-28 13:23 | CT ---
EXAMINATION TYPE: CT biopsy liver DATE OF EXAM: 10/28/2023 1:11 PM CLINICAL INDICATION:Female, 63 years old with history of liver mass biopsy. COMPARISON: None CT DLP: 946 mGycm, Automated exposure control for dose reduction was used. Contrast used: mL of , none Oral contrast used: none ATTENDING: Dr. Herminio Britton TECHNIQUE: CT guided percutaneous biopsy of the left liver mass. using coaxial method. One or more CT dose reduc tion strategies were utilized during this examination. Total CT dose 946 mGycm. FINDINGS: The procedure was explained to the patient including risks of bleeding, bruising, infection, damage t o nearby organs and need for additional therapy including potential surgery. All questions were answ ered and consent was obtained. The previous studies were reviewed. The patient was placed on the CT couch in the supine position. The overlying skin was marked and prepped using sterile method. Timeout was taken per protocol. Follo wing administration of conscious sedation and local anesthesia a 17 gauge coaxial needle was introd uced on the left hepatic lobe mass.. The coaxial needle tip was directed into the mass with CT joanna nce. Multiple 18 gauge coaxial biopsies were then obtained. Touch prep of portions of the specimen were reviewed by pathology department personnel during the procedure to evaluate for cellularity of the samples. The biopsy samples were sent in appropriate containers for lab analysis. Following t he procedure the needle was removed and sterile dressing was applied to the percutaneous site. Post biopsy imaging demonstrated no evidence of March. Patient was taken for postprocedure observation in stable condition. IMPRESSIONS: Status post percutaneous left liver mass biopsy as described above. Pathology results pending.
--- NOTE | 2023-10-28 15:32 | P.PN ---
Subjective Progress Note Date: 10/28/23 S/p liver biopsy today. Pt reporting persisting upper abd pain, without improvement with IV dilaudid. Will make adjustments to regimen with long acting and short acting oral pain medications to help better control pain Objective - Vital Signs Vital signs: Vital Signs Temp 99 F 10/28/23 13:05 Pulse 76 10/28/23 13:05 Resp 16 10/28/23 13:05 BP 121/72 10/28/23 13:05 Pulse Ox 96 10/28/23 13:05 FiO2 Intake & Output 10/27/23 10/28/23 10/28/23 18:59 06:59 18:59 Intake Total 590 Balance 590 Weight 40.823 kg Intake: Oral 590 Other: # Voids 1 2 - Constitutional General appearance: Present: average body habitus, no acute distress - EENT Eyes: Present: EOMI ENT: Present: hearing grossly normal - Respiratory Details: breathing is even and unlabored - Cardiovascular Details: skin warm and dry - Gastrointestinal General gastrointestinal: Present: tenderness Localized gastrointestinal: tender: RUQ, LUQ, epigastric periumbilical - Integumentary Integumentary: Absent: cyanotic - Musculoskeletal Musculoskeletal: Present: strength equal bilaterally - Psychiatric Psychiatric: Present: A&O x's 3 - Labs CBC & Chem 7: 10/24/23 14:25 10/27/23 11:48 - Imaging and Cardiology CT scan - abdomen: report reviewed Assessment and Plan (1) Abdominal pain Current Visit: Yes Status: Acute Priority: High Code(s): R10.9 - UNSPECIFIED ABDOMINAL PAIN SNOMED Code(s): 83339992 (2) Liver mass Current Visit: Yes Status: Acute Priority: High Code(s): R16.0 - HEPATOMEGALY, NOT ELSEWHERE CLASSIFIED SNOMED Code(s): 922185901 Plan: Liver mass, abd pain: Presented with complaints of abdominal pain, and nausea vomiting diarrhea, for approx 1 month, with associated 20 lb unintentional weight loss. She states that she was seen at [facility] couple weeks ago for similar symptoms, and was diagnosed with a liver mass that was found on imaging. She also reports since, she had follow-up with a doctor in [place] but does not recall his name who wanted her to set up a biopsy but she has yet to do so. -CT abdomen pelvis with IV contrast obtained on 10/02/23 at [facility] was reviewed, revealing a 6.2 cm heterogeneously enhancing mass of the left hepatic dome. Small 1.2 cm lesion of the right liver lobe. Small pulmonary nodules at the lower lungs measuring up to 5 mm. Retroperitoneal and upper abdominal adenopathy measuring up to 2.1 cm. New fluid dilatation of the first part of the duodenum. Distance between the SMA and the abdominal aorta is narrowed to 5 mm, possibility of SMA syndrome -Discussed results with patient and concerns for malignancy. She was agreeable to proceed with further testing and biopsy -CT CAP with IV and oral contrast ordered. Scan showing scattered pulmonary nodules, enlarging hepatic mass measuring 54 x 55 mm. Scattered retroperitoneal lymph nodes. Bilateral prominent axillary nodes which are indeterminant, findings similar to previous study on 04/08/2020. -S/p liver biopsy with IR, path pending -Patient reporting persisting upper abdominal pain, without improvement with IV pain meds. Spoke with Pharm.D to convert IV pain meds to PO morphine. Will transition patient from IV Dilaudid to oral pain med regimen to try to better control pain. Will continue to follow and adjust medications as needed to achieve adequate pain control for discharge. Continue Senokot daily for prevention of opioid-induced constipation Lung cancer: -Previous history of squamous cell carcinoma of right lung. She was seen in 08/12, by Dr. Rogers, CT surgery. She had a PET scan done, which showed intense uptake in the right upper lobe density, with no evidence of uptake at other sites. The patient subsequently underwent robotic-assisted right upper lobectomy and lymph node dissection on 08/10/18. 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 Margins were negative, with no evidence of pleural invasion. -She established care with Dr. Sapp in March 2019. She had a MRI brain and CT CAP which were negative for any evidence of recurrent malignancy. She was placed on surveillance, with repeat scans ordered in 3 months. However, she never obtained ordered scans and was subsequently lost to follow up attests: I have performed H&P and developed impression and plan of care for patient, discussed with dictator. I agree with dictated note, documented as a scribe
[2023-10-28] MEDS: HYDROcodone/APAP 7.5-325MG 1 EACH TAB PO PRN (16:34)
[2023-10-28] MEDS: MORPHINE SULFATE ER 15 MG TABLET PO SCH (21:30)
[2023-10-29] MEDS: MORPHINE SULFATE ER 60 MG TABLET PO SCH (16:34)
--- NOTE | 2023-10-31 02:03 | PN ---
PROGRESS NOTE DATE OF SERVICE: 10/30/2023 CHIEF COMPLAINT: Metastatic carcinoma. HISTORY OF PRESENT ILLNESS: This lady is quite sedated now. Yesterday, she was having significant amount of pain. She is more lethargic today and denies having any significant pain. PHYSICAL EXAMINATION: CHEST: Breath sounds are heard bilaterally. CARDIAC: Normal. IMPRESSION: 1. Abdominal pain due to liver mass. 2. Chronic obstructive pulmonary disease. 3. History of CA of the lung. 4. Intractable pain. PLAN: No changes for the time being. MMODL / IJN: [id number] /
--- NOTE | 2023-10-31 03:44 | PN ---
PROGRESS NOTE DATE OF SERVICE: 10/27/2023 CHIEF COMPLAINT: Intractable abdominal pain and liver mass. HISTORY OF PRESENT ILLNESS: This lady is doing fairly well, but her abdominal pain has become more severe. Biopsy has been done and report is pending. PHYSICAL EXAMINATION: GENERAL: She is afebrile. CHEST: Clear. CARDIAC: Normal. ABDOMEN: She is tender over the epigastrium. IMPRESSION: Liver mass with intractable pain. PLAN: Increase her analgesic program and await results of the biopsy. MMODL / IJN: [id number] /
--- NOTE | 2023-10-31 04:53 | PN ---
PROGRESS NOTE DATE OF SERVICE: 10/28/2023 CHIEF COMPLAINT: Intractable abdominal pain with liver mass. HISTORY OF PRESENT ILLNESS: This lady is still having a great deal of discomfort. Biopsy was done. Report is pending. PHYSICAL EXAM: GENERAL: She is pale and asthenic. CHEST: Demonstrates poor breath sounds due to her COPD. CARDIAC: Exam is normal. ABDOMEN: Tender. IMPRESSION: 1. Liver mass with intractable pain. 2. Chronic obstructive pulmonary disease. 3. History of carcinoma of the lung. PLAN: Await results of biopsy and in the meantime, try to control her pain. MMODL / IJN: [id number] /
--- NOTE | 2023-10-31 06:32 | PN ---
PROGRESS NOTE DATE OF SERVICE: 10/29/2023 CHIEF COMPLAINT: Probable metastatic carcinoma of the lung. HISTORY OF PRESENT ILLNESS: This lady is still having a great deal of pain and we await the biopsy on her liver. PHYSICAL EXAMINATION: CHEST: Demonstrates poor breath sounds due to her emphysema. CARDIAC: Normal. ABDOMEN: Soft, nontender. IMPRESSION: Intractable abdominal pain with liver mass. PLAN: Increase her analgesic program by increasing her morphine. MMODL / IJN: [id number] /
[2023-10-31] MEDS: hydrOXYzine HCL 25 MG TAB PO PRN (12:47)
--- NOTE | 2023-10-31 20:24 | PN ---
PROGRESS NOTE DATE OF SERVICE: 10/31/2023 CHIEF COMPLAINT: Mass in the liver and abdominal pain. HISTORY OF PRESENT ILLNESS: This lady is more awake today and she is complaining more bitterly of the abdominal pain despite the morphine. We still await the biopsy report. PHYSICAL EXAMINATION: She is tender over the epigastrium. She has breath sounds bilaterally. She is pale and chronically ill in appearance. IMPRESSION: 1. Abdominal pain. 2. Liver mass. 3. Chronic obstructive pulmonary disease. 4. History of carcinoma of the lung. PLAN: Await biopsy results of the liver. MMODL / IJN: [id number] /
[2023-11-01] MEDS: MORPHINE SULFATE ER 30 MG TABLET PO SCH (21:05)
--- NOTE | 2023-11-02 13:05 | P.PN ---
Subjective Progress Note Date: 11/02/23 Principal diagnosis: Liver mass, abd pain In f/u today pt cont to have c/o abd pain, generalized, she reports no recent BM. No N,V. Pathology from liver biopsy is resulted Objective - Vital Signs Vital signs: Vital Signs Temp 98 F 11/02/23 12:09 Pulse 79 11/02/23 12:11 Resp 16 11/02/23 12:09 BP 101/66 11/02/23 12:09 Pulse Ox 97 11/02/23 12:09 FiO2 Intake & Output 11/01/23 11/02/23 11/02/23 18:59 06:59 18:59 Other: Voiding Method Toilet Toilet Toilet # Voids 2 3 - Constitutional General appearance: Present: average body habitus, cooperative, no acute distress - EENT Eyes: Present: anicteric sclerae, EOMI ENT: Present: hearing grossly normal - Respiratory Details: resp even and unlabored at rest - Cardiovascular Details: skin warm and dry to touch, well perfused - Peripheral edema leg Peripheral Edema: bilateral: None - Gastrointestinal General gastrointestinal: Present: soft, tenderness Localized gastrointestinal: tender: epigastric periumbilical, suprabubic - Neurologic Neurologic: Present: CNII-XII intact - Musculoskeletal Musculoskeletal: Present: strength equal bilaterally - Psychiatric Psychiatric: Present: A&O x's 3, appropriate affect, intact judgment & insight - Labs CBC & Chem 7: 10/24/23 14:25 10/27/23 11:48 Assessment and Plan (1) Liver mass Current Visit: Yes Status: Acute Priority: High Code(s): R16.0 - HEPATOMEGALY, NOT ELSEWHERE CLASSIFIED SNOMED Code(s): 276078989 (2) Abdominal pain Current Visit: Yes Status: Acute Priority: High Code(s): R10.9 - UNSPECIFIED ABDOMINAL PAIN SNOMED Code(s): 79026595 Plan: Liver mass -Presented with abdominal pain, N,V,D x 1 mo associated with a 20lb wt loss. Mass was seen on imaging, 6.2 cm heterogeneously enhancing mass of the left hepatic dome. Small 1.2 cm lesion of the right liver lobe. Small pulmonary nodules at the lower lungs measuring up to 5 mm. Retroperitoneal and upper abdominal adenopathy measuring up to 2.1 cm. New fluid dilatation of the first part of the duodenum. Distance between the SMA and the abdominal aorta is narrowed to 5 mm, possibility of SMA syndrome. Pt had yet to follow up for biopsy. -CT CAP showed scattered pulmonary nodules, enlarging hepatic mass measuring 54 x 55 mm, scattered retroperitoneal lymph nodes -Liver biopsy recommended, pt agreed. -Path reviewed today. Non-small cell carcinoma morphological consistent with adenocarcinoma, not otherwise specified. Tumor is immunohistochemically positive for CK7 and neg for CK20, CDX2, ROBBIE-3, Estrogen Receptor, Napsin-A, p40, PAX8 and TTF-1. It is further reported that unable to entirely exclude breast, upper GI/pancrreatobiliary or [place] origin. Recommending imaging and studies to correlate. -Recommend MRCP, EGD, US breasts, and transvaginal US. Pt is agreeable to continue with testing. Testing ordered, Surgery consulted. Will cont to f/u and further recommendations will follow -Dr. Sapp did discuss with pt that the unfortunately findings are consistent with metastatic disease. Treatment options and prognosis cannot be discussed yet until primary in known. Irregardless of primary disease is not curable but, will be treatable. Intent of any treatment will be palliation of symptoms and prolongation of life. -All pt questions were answered to her satisfaction. She verbalized understanding Abd pain -Secondary to above -medications are being adjusted -Medications for prevention of narcotic induce constipation -If no BM soon, or if pain persist/progresses, may need to consider abd xray Hx squamous cell lung cancer -Right lung, treated with robotic-assisted right upper lobectomy and lymph node dissection on 08/10/18. Final path, 2 cm squamous cell carcinoma, with 0/7 lymph nodes involved. Margins were negative, with no evidence of pleural invasion. MRI brain neg. No further treatment. -She established care with Dr. Sapp in March 2019. She had a MRI brain and CT CAP which were negative for any evidence of recurrent malignancy. She was placed on surveillance, with repeat scans ordered in 3 months. However, she never obtained ordered scans and was subsequently lost to follow up -Likelyhood of metastatic disease 5 years after initial diagnosis is low -Liver pathology is not consistent with squamous cell carcinoma so, this is not recurrent/metastatic disease from previous malignancy. attests: I have performed H&P and developed impression and plan of care for patient, discussed with dictator. I agree with dictated note, documented as a scribe Time with Patient: Greater than 30
[2023-11-02] MEDS ORDERED: ALPRAZolam 0.25 MG TAB PO PRN (13:17)
[2023-11-02] MEDS: polyethylene glycoL 3350 17 GM POWD.PACK PO STA (13:50)
[2023-11-02] MEDS: HYDROcodone/APAP 10-325MG 1 EACH TAB PO PRN (15:51)
--- NOTE | 2023-11-02 16:18 | P.GSCN ---
History of Present Illness Consult date: 11/02/23 History of present illness: CHIEF COMPLAINT: Nausea and vomiting with abdominal pain HISTORY OF PRESENT ILLNESS: This is a 63-year-old female who presented with nausea with abdominal pain x 3 weeks. Also reported diarrhea. Patient reports pain was across the lower abdomen and right upper quadrant. Patient has reported a 20 pound weight loss. She is a smoker. Prior history of cholecystectomy and a history of lung cancer right lobe with lobectomy in 2019. Patient was found to have a liver mass at outside facility about 3 weeks ago. Patient had liver biopsy by IR service results reported metastatic non-small cell carcinoma consistent with adenocarcinoma not otherwise specified. Patient is followed by oncology service. Oncology service is requesting EGD to rule out a primary GI source for malignancy. Patient denies any blood in her stools. She does report having issues with constipation. PAST MEDICAL HISTORY: See list. PAST SURGICAL HISTORY: See list. MEDICATIONS: See list. ALLERGIES: See list. SOCIAL HISTORY: No illicit drug use. REVIEW OF SYSTEMS: CONSTITUTIONAL: Denies fever or chills. HEENT: Denies blurred vision, vision changes, or eye pain. Denies hemoptysis ENDOCRINE: Denies heat or cold intolerance. CARDIOVASCULAR: Denies chest pain or pressure. RESPIRATORY: No shortness of breath. GASTROINTESTINAL: Denies abdominal pain. Denies nausea or vomiting. NEURO: Denies history of seizures. PSYCH: No depression or suicidal ideation HEMATOLOGIC: Denies bleeding disorders. LYMPHATIC: The patient denies any lumps and bumps around the neck. GENITOURINARY: Denies any blood in urine or increased urinary frequency. MUSCULOSKELETAL: Denies myalgias. Denies joint swelling. Denies decreased range of motion beyond patients baseline. SKIN: Denies pruitis. Denies rash. PHYSICAL EXAM: VITAL SIGNS: Reviewed GENERAL: Well-developed in no acute distress. HEENT: No sclera icterus. Extraocular movements grossly intact. Moist buccal mucosa. Head is atraumatic, normocephalic. Hears conversational speech. No nasal drainag e. NECK: Supple without lymphadenopathy. CHEST: Non-labored respirations and equal bilateral excursions. CARDIOVASCULAR: Palpable 2+ radial pulses. ABDOMEN: Soft. Nondistended. Tender with palpation of right upper quadrant right side of abdomen and lower abdomen. MUSCULOSKELETAL: No clubbing or cyanosis. NEUROLOGIC: No focal or lateralizing signs. Cranial nerves II through XII grossly intact. PSYCH: Appropriate affect. Alert and oriented to person, place and time. SKIN: Well perfused. Good skin turgor. LABORATORY DATA: WBC 7.6 Hgb 13.6 platelets 334 INR 1.1 Sodium is 136 potassium 3.7 creatinine 0.34 Lactic acid 0.8 Total bilirubin 0.5 AST 23 ALT 16 alk phos 163 Lipase 25 IMAGING: CT scan abdomen 5.5 cm left hepatic lobe lesion ASSESSMENT: 1. Left liver mass status post biopsy with pathology non-small cell carcinoma morphologically consistent with adenocarcinoma but not otherwise specified 2. History of squamous cell lung cancer PLAN: -Further recommendations forthcoming per surgeon regarding EGD -Continue supportive care -Oncology has ordered MRCP Physician Manager Ob note has been reviewed by physician. Signing provider agrees with the documented findings, assessment, and plan of care. Past Medical History Past Medical History: Cancer, Chest Pain / Angina, COPD, Osteoarthritis (OA), Rheumatoid Arthritis (RA), Thyroid Disorder Additional Past Medical History / Comment(s): ATHRITIS, VERTIGO, cerebral aneurysm, subdural hematoma, left sided aneurysm, recovering alcoholic History of Any Multi-Drug Resistant Organisms: None Reported Past Surgical History: Cholecystectomy Additional Past Surgical History / Comment(s): SUBDURAL HEMATOMA, ANEURYSM, Lobectomy 2019 Past Anesthesia/Blood Transfusion Reactions: No Reported Reaction Past Psychological History: Anxiety, Bipolar, Depression, Panic Disorder Smoking Status: Current every day smoker Past Alcohol Use History: None Reported Additional Past Alcohol Use History / Comment(s): Patient states she has been sober for 28 years until last (September 22) when she got "very, very drunk" and drank , Tuesday and into Tuesday due to a period of very high anxiety. Past Drug Use History: None Reported, Marijuana Additional Drug Use History / Comment(s): 3 to 4 cigarettes daily. - Past Family History Mother Family Medical History: Dementia Father Family Medical History: Cancer Additional Family Medical History / Comment(s): mouth cancer Brother(s) Family Medical History: Cancer Additional Family Medical History / Comment(s): lung cancer Medications and Allergies Home Medications Medication Instructions Recorded Confirmed Type Albuterol Inhaler [Ventolin Hfa 2 puff INHALATION RT-QID PRN 09/25/17 10/24/23 History Inhaler] Sertraline [Zoloft] 100 mg PO BID 09/25/17 10/24/23 History ALPRAZolam [Xanax] 0.5 mg PO TID PRN 10/24/23 10/24/23 History Atorvastatin [Lipitor] 40 mg PO DAILY 10/24/23 10/24/23 History Budesonide/Formoterol Fumarate 2 puff INHALATION RT-BID 10/24/23 10/24/23 History [Symbicort 80-4.5 Mcg Inhaler] Cholecalciferol [Vitamin D3 (25 50 mcg PO DAILY 10/24/23 10/24/23 History Mcg = 1000 Iu)] HYDROmorphone [Dilaudid] 4 mg PO Q6H PRN 10/24/23 10/24/23 History Ipratropium-Albuterol Nebulize 3 ml INHALATION RT-QID 10/24/23 10/24/23 History [Duoneb 0.5 mg-3 mg/3 ml Soln] Levothyroxine Sodium [Synthroid] 200 mcg PO DAILY 10/24/23 10/24/23 History Meloxicam [Mobic] 7.5 mg PO BID PRN 10/24/23 10/24/23 History Memantine [Namenda] 10 mg PO BID 10/24/23 10/24/23 History Pantoprazole Sodium [Protonix] 20 mg PO DAILY 10/24/23 10/24/23 History QUEtiapine FUMARATE [SEROquel XR] 600 mg PO HS 10/24/23 10/24/23 History QUEtiapine [SEROquel] 100 mg PO BID@0900,1200 10/24/23 10/24/23 History hydrOXYzine HCL [Atarax] 50 mg PO TID PRN 10/24/23 10/24/23 History lisinopriL [Zestril] 10 mg PO DAILY 10/24/23 10/24/23 History traMADol HCL 50 mg PO DAILY PRN 10/24/23 10/24/23 History Allergies Allergy/AdvReac Type Severity Reaction Status Date / Time codeine Allergy Rash/Hives Verified 10/24/23 18:38 Surgical - Exam Vital Signs Temp Pulse Resp BP Pulse Ox 99.8 F H 79 18 154/90 94 L 10/24/23 13:33 10/24/23 13:33 10/24/23 13:33 10/24/23 13:33 10/24/23 13:33 Results - Labs 10/24/23 14:25 10/27/23 11:48
--- NOTE | 2023-11-02 21:30 | PN ---
PROGRESS NOTE DATE OF SERVICE: 11/02/2023 CHIEF COMPLAINT: Abdominal pain and metastatic CA. HISTORY OF PRESENT ILLNESS: This lady has been told that her biopsy of her liver mass is positive and likely from her previous lung cancer. She is still having quite a bit of pain. She states that she was told that this may be able to be removed surgically, but I do not think this is the case. She may be slightly confused. PHYSICAL EXAMINATION: CHEST: Demonstrates poor breath sounds. CARDIAC: Normal. ABDOMEN: Soft and slightly tender over the epigastrium. IMPRESSION: 1. Metastatic carcinoma of the lung. 2. Chronic obstructive pulmonary disease. 3. Rheumatoid arthritis. PLAN: Wait for any treatment recommendations. Otherwise, she can probably go home. She apparently will require oxygen. Question eventually will be whether or not she should be picked up by hospice. MMODL / IJN: [id number] /
[2023-11-02] MEDS: SENNOSIDES-DOCUSATE SODIUM 1 EACH TAB PO SCH (21:37)
[2023-11-03 08:07] LABS: HCT 32.5 % (34.0-46.0); HGB 10.5 gm/dL (11.4-16.0); MCH 31.2 pg (25.0-35.0); MCHC 32.3 g/dL (31.0-37.0); MCV 96.4 fL (80.0-100.0); Mean Platelet Volume 8.5; Platelet Count 273 k/uL (150-450); RBC 3.37 m/uL (3.80-5.40); RDW 14.4 % (11.5-15.5); WBC 3.5 k/uL (3.8-10.6)
[2023-11-03 08:26] LABS: African American GFR (CKD) >90 (>60 ml/min/1.73 sqM); Anion Gap 4 mmol/L; Blood Urea Nitrogen 5 mg/dL (7-17); Calcium 8.6 mg/dL (8.4-10.2); Carbon Dioxide 27 mmol/L (22-30); Chloride 107 mmol/L (98-107); Glucose 79 mg/dL (74-99); Non-African American GFR(CKD) >90 (>60 ml/min/1.73 sqM); Potassium 3.9 mmol/L (3.5-5.1); Sodium 138 mmol/L (137-145)
[2023-11-03] MEDS ORDERED: LIDOCAINE 1% INJ 10MG/ML (20 ML MDV) ONE (09:40)
[2023-11-03] MEDS ORDERED: PROPOFOL 10 MG/ML 20 ML VIAL IV ONE (09:40)
[2023-11-03] MEDS: IV FLUID CONTINUATION 1,000 ML IV ONE ×2 (09:46→09:52)
--- NOTE | 2023-11-03 10:00 | P.PCN ---
Date of Procedure: 11/03/23 Description of Procedure: PREOPERATIVE DIAGNOSIS: Malignancy of unknown primary Liver mass Underweight, BMI 15.4 POSTOPERATIVE DIAGNOSIS: Malignancy of unknown primary Liver mass Underweight, BMI 15.4 OPERATION: Esophagogastroduodenoscopy with biopsies along esophagus, antrum and duodenum SURGEON: Roxane Medina MD ANESTHESIA: MAC. INDICATIONS: The patient is a 63-year-old female who presents with malignancy of unknown primary. Per request of admitting team, malignancy workup including upper e ndoscopy is requested. Benefits and risks of the procedure were described. Informed consent was obtained. DESCRIPTION: The patient was brought into the endoscopy suite and laid in the left lateral de cubitus position. An Olympus gastroscope was passed along the posterior oropharynx down to the distal esophagus where the squamocolumnar junction was encountered at 41 cm from the incisors. The stomach was entered and bile reflux was found. Additional findings are listed below. Biopsies with cold forceps were obtained of the antrum. The first through third portion of the duodenum was examined. Retroflexion of the scope confirmed Hill grade 3 lower esophageal valve. The squamocolumnar junction demonstrated LA grade B erosive esophagitis. The stomach was desufflated. The patient tolerated the procedure well. FINDINGS: Squamocolumnar junction 41 cm from the incisors. Diaphragmatic hiatus at 41 cm. Hill grade 2 lower esophageal valve. LA grade B erosive esophagitis. Biopsies obtained Biopsies obtained of the duodenum. Chronic gastritis with biopsies obtained. Bile reflux with retained food RECOMMENDATIONS: Biopsies obtained with pathology forthcoming Upper endoscopy as needed.
--- NOTE | 2023-11-03 12:59 | MR ---
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 Then, heavily T2 weighted imaging (half-Fourier acquisition single- shot turbo spin-echo) was utilized in order to study the biliary system. Maximum intensity projectio n images were reconstructed from the original data of the biliary tree. 3D images were created on a [employer] work station. No Gadolinium given. FINDINGS: Lower Thorax: Small bilateral pleural effusions are present. MRCP: * Respiratory motion limits evaluation. The intrahepatic ducts are mildly dilated centrally. * The common bile duct at the level of the pancreatic head measures 11 mm in size. * The common hepatic duct measures 13 mm in size. * The pancreatic duct is prominent and most pronounced in the pancreatic neck/body measuring up to 4 mm. * The gallbladder appears surgically absent. Small cystic duct remnant noted. Series 411 image 14. Abdomen: Liver: Redemonstration of scattered lesions most pronounced in the left hepatic lobe which was previo usly biopsied. Correlate with pathology. Pancreas: Poorly evaluated due to motion. No obvious mass identified. Findings correlate with CT find ings from 10/26/2023. Spleen: Unremarkable. Adrenal glands: Unremarkable. Kidneys: No evidence for hydronephrosis. No evidence for mass. Stomach and Bowel: Unremarkable as visualized. No bowel wall thickening visualized in this limited M RI exam. Peritoneum: No evidence of pneumoperitoneum or free fluid. Vasculature: Unremarkable. No aortic aneurysm. Musculoskeletal: The osseous structures appear intact. No suspicious osseous lesions identified. Lymph Nodes: There remains conglomerate lymphadenopathy extending throughout the retroperitoneum and around the celiac axis and superior mesenteric arteries near their origin aorta series 604 image 152 of diffusion-weighted imaging. Abdominal wall: Unremarkable. IMPRESSION: 1. Abnormal conglomerate soft tissue/lymphadenopathy throughout the retroperitoneum extending from t he inferior field of view up to and around the SMA and celiac axis. Pancreatic parenchyma while poorl y visualized on this MRI exam due to motion. The prior CT had a rather uniform appearance without karthik dence for mass. 2. Dilation of the extrahepatic biliary system which can be seen in setting of normal post cholecyst ectomy physiology. If there is concern for ampullary lesion consider further evaluation with ERCP. No evidence to suggest choledocholithiasis. 3. Redemonstration of scattered hepatic lesions with dominant left hepatic lobe masses which is prev iously biopsied. 4. Trace bilateral pleural effusions.
--- NOTE | 2023-11-04 00:15 | PN ---
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 HISTORY OF PRESENT ILLNESS: This lady is just about the same. She is getting quite a bit of discomfort, but generally she is awake and alert. It is not clear what will be happening next. Oncology is reviewing if there is any viable treatment for her. Otherwise, she could go home and we might eventually have to talk about hospice. PHYSICAL EXAMINATION: CHEST: Breath sounds are diminished due to her COPD. ABDOMEN: She is tender over the epigastrium. EXTREMITIES: Reveal her rheumatoid findings in her hands. PLAN: Await further guidance from Oncology. MMODL / IJN: [id number] /
--- NOTE | 2023-11-04 13:30 | PN ---
PROGRESS NOTE DATE OF SERVICE: 11/01/2023 CHIEF COMPLAINT: Metastatic carcinoma of the lung. HISTORY OF PRESENT ILLNESS: This lady is doing reasonably well, but still complaining of quite a bit of pain. PHYSICAL EXAMINATION: CHEST: Breath sounds are diminished. CARDIAC: Exam is normal. ABDOMEN: Tender over the epigastrium. VITAL SIGNS: Normal. IMPRESSION: 1. Metastatic CA of the lung. 2. COPD. 3. Rheumatoid arthritis. PLAN: Oncology is doing further workup, and treatment plans will be evaluate once they are available. MMODL / IJN: [id number] /
--- NOTE | 2023-11-04 15:19 | P.PN ---
Subjective Progress Note Date: 11/04/23 S/p liver biopsy today. Pt reporting persisting upper abd pain, without improvement with IV dilaudid. Will make adjustments to regimen with long acting and short acting oral pain medications to help better control pain Objective - Vital Signs Vital signs: Vital Signs Temp 97.7 F 11/04/23 13:34 Pulse 75 11/04/23 13:34 Resp 20 11/04/23 13:34 BP 86/57 11/04/23 13:34 Pulse Ox 94 L 11/04/23 13:34 FiO2 Intake & Output 11/03/23 11/04/23 11/04/23 18:59 06:59 18:59 Intake Total 50 590 Balance 50 590 Weight 40.823 kg Intake: IV 50 Oral 590 Other: Voiding Method Toilet Toilet # Voids 3 3 - Labs CBC & Chem 7: 11/03/23 07:14 11/03/23 07:14 Assessment and Plan (1) Abdominal pain Current Visit: Yes Status: Acute Priority: High Code(s): R10.9 - UNSPECIFIED ABDOMINAL PAIN SNOMED Code(s): 88096460 (2) Liver mass Current Visit: Yes Status: Acute Priority: High Code(s): R16.0 - HEPATOMEGALY, NOT ELSEWHERE CLASSIFIED SNOMED Code(s): 139495056 Plan: Liver mass -Presented with abdominal pain, N,V,D x 1 mo associated with a 20lb wt loss. Mass was seen on imaging, 6.2 cm heterogeneously enhancing mass of the left hepatic dome. Small 1.2 cm lesion of the right liver lobe. Small pulmonary nodules at the lower lungs measuring up to 5 mm. Retroperitoneal and upper ab dominal adenopathy measuring up to 2.1 cm. New fluid dilatation of the first part of the duodenum. Distance between the SMA and the abdominal aorta is narrowed to 5 mm, possibility of SMA syndrome. Pt had yet to follow up for biopsy. -CT CAP showed scattered pulmonary nodules, enlarging hepatic mass measuring 54 x 55 mm, scattered retroperitoneal lymph nodes -Path from liver biopsy reviewed. Non-small cell carcinoma morphological consistent with adenocarcinoma, not otherwise specified. Tumor is immunohistochemically positive for CK7 and neg for CK20, CDX2, ROBBIE-3, Estrogen Receptor, Napsin-A, p40, PAX8 and TTF-1. It is further reported that unable to entirely exclude breast, upper GI/pancrreatobiliary or [employer] origin. Recommending imaging and studies to correlate. -Recommend MRCP, EGD, US breasts, and transvaginal US. Pt is agreeable to continue with testing. Testing ordered, Surgery consulted. - MRCP revealed abnormal conglomerate soft tissue/lymphadenopathy throughout the retroperitoneum extending from the inferior [id number] up to and around the SMA and celiac axis. Pancreatic parenchyma was poorly visualized due to motion, however the prior CT had a uniform appearance without evidence for mass. Dilation of the extrahepatic biliary system. No evidence of choledocholithiasis. Redemonstration of scattered hepatic lesions with dominant left hepatic lobe masses. - S/p EGD on 11/02. Erosive esophagitis and chronic gastritis noted. Biopsies of duodenum, stomach and esophagus were negative for malignancy - CA 199 ordered - Will schedule bilateral breast ultrasounds and transvaginal ultrasound outpatient. If no targetable sites are noted we will refer patient for EUS with biopsy -Dr. Sapp did discuss with pt that the unfortunately findings are consistent with metastatic disease. Treatment options and prognosis cannot be discussed yet until primary in known. Irregardless of primary disease is not curable but, will be treatable. Intent of any treatment will be palliation of symptoms and prolongation of life. -All pt questions were answered to her satisfaction. She verbalized understanding Abd pain -Secondary to above -medications are being adjusted. Reporting improved pain on regimen. Rates pain at 2-3 -Olga and MS contin has been sent from clinic to pharmacy on file -Medications for prevention of narcotic induce constipation Hx squamous cell lung cancer -Right lung, treated with robotic-assisted right upper lobectomy and lymph node dissection on 08/10/18. Final path, 2 cm squamous cell carcinoma, with 0/7 lymph nodes involved. Margins were negative, with no evidence of pleural invasion. MRI brain neg. No further treatment. -She established care with Dr. Sapp in March 2019. She had a MRI brain and CT CAP which were negative for any evidence of recurrent malignancy. She was placed on surveillance, with repeat scans ordered in 3 months. However, she never obtained ordered scans and was subsequently lost to follow up -Likelyhood of metastatic disease 5 years after initial diagnosis is low -Liver pathology is not consistent with squamous cell carcinoma so, this is not recurrent/metastatic disease from previous malignancy Patient is cleared from hem/onc standpoint once cleared by IM and other consulted medical specialities Dr attests: I have performed H&P and developed impression and plan of care for patient, discussed with dictator. I agree with dictated note, documented as a scribe
--- NOTE | 2023-11-04 16:05 | P.PN ---
Subjective Progress Note Date: 11/04/23 CHIEF COMPLAINT: Liver mass HISTORY OF PRESENT ILLNESS: Patient is status post EGD with biopsies. Pathology results are negative. Patient tolerating diet. Denies any new abdominal pain. PHYSICAL EXAM: VITAL SIGNS: Reviewed GENERAL: Well-developed in no acute distress. HEENT: No sclera icterus. Extraocular movements grossly intact. Moist buccal mucosa. Head is atraumatic, normocephalic. Hears conversational speech. No nasal drainage. NECK: Supple without lymphadenopathy. CHEST: Non-labored respirations and equal bilateral excursions. CARDIOVASCULAR: Palpable 2+ radial pulses. ABDOMEN: Soft. Nondistended. MUSCULOSKELETAL: No clubbing or cyanosis. NEUROLOGIC: No focal or lateralizing signs. Cranial nerves II through XII grossly intact. PSYCH: Appropriate affect. Alert and oriented to person, place and time. SKIN: Well perfused. Good skin turgor. ASSESSMENT: Malignancy of unknown primary Liver mass Underweight, BMI 15.4 PLAN: -Patient status post EGD with biopsy. Pathology is negative. Patient tolerating diet. -Surgical service will sign off. Please call with any questions or concerns. Physician [employer] note has been reviewed by physician. Signing provider agrees with the documented findings, assessment, and plan of care. Objective - Vital Signs Vital signs: Vital Signs Temp 97.7 F 11/04/23 13:34 Pulse 68 11/04/23 15:33 Resp 20 11/04/23 13:34 BP 86/57 11/04/23 13:34 Pulse Ox 94 L 11/04/23 13:34 FiO2 Intake & Output 11/03/23 11/04/23 11/04/23 18:59 06:59 18:59 Intake Total 50 590 Balance 50 590 Weight 40.823 kg Intake: IV 50 Oral 590 Other: Voiding Method Toilet Toilet # Voids 3 3 - Labs CBC & Chem 7: 11/03/23 07:14 11/03/23 07:14
[2023-11-04] MEDS: SODIUM CHLORIDE 0.9% 1,000 ML IV ONE (17:20)
--- NOTE | 2023-11-04 21:48 | PN ---
PROGRESS NOTE CHIEF COMPLAINT: Neoplasm of the liver. HISTORY OF PRESENT ILLNESS: This lady is still having quite a bit of pain. Apparently, oncology is signing off now. Blood pressure is slightly low and she may be coming dehydrated. She is getting significant amount of analgesics as well as Xanax. She is only complaining of the abdominal pain. PHYSICAL EXAMINATION: GENERAL: She is chronically ill and cachectic in appearance. She is pale CHEST: Clear. CARDIAC: Exam is normal. ABDOMEN: Tender over the epigastrium. IMPRESSION: Small cell carcinoma with metastasis to the liver. PLAN: 1. Because her blood pressure was low, she will be given a bolus of IV fluids, follow this at an hourly rate. 2. Consider an appropriate discharge plan for this lady. MMODL / IJN: [id number] /
--- NOTE | 2023-11-05 21:03 | PN ---
PROGRESS NOTE DATE OF SERVICE: 11/05/2023 CHIEF COMPLAINT: Persistent and severe abdominal pain with liver mass. HISTORY OF PRESENT ILLNESS: This lady is about the same. She is still complaining of the pain not being controlled. When she was on more narcotic several days ago, she became too lethargic. PHYSICAL EXAMINATION: GENERAL: She remains pale and chronically ill in appearance. CHEST: Clear. She is tender over the liver. IMPRESSION: 1. Adenocarcinoma metastatic to the liver. 2. Chronic obstructive pulmonary disease. 3. History of carcinoma of the right lung. 4. Rheumatoid arthritis. PLAN: Await for Oncology to decide what treatment if any she will be receiving. MMODL / IJN: [id number] /
--- NOTE | 2023-11-06 20:51 | PN ---
PROGRESS NOTE DATE OF SERVICE: 11/06/2023 CHIEF COMPLAINT: Abdominal pain and liver mass. HISTORY OF PRESENT ILLNESS: This lady is doing about the same. We are still waiting for the treatment plan. She has developed some pain and swelling in the left foot, which goes up to the left lower leg. PHYSICAL EXAMINATION: GENERAL: She remains pale and asthenic. CHEST: Breath sounds are diminished. CARDIAC: Normal. ABDOMEN: Unchanged. EXTREMITIES: Left foot is swollen and slightly tender. IMPRESSION: 1. Carcinoma in the liver. 2. Chronic obstructive pulmonary disease. 3. Rheumatoid arthritis. 4. Swelling in the left foot, etiology unknown. PLAN: Increase activity and await discharge and treatment guidelines and recommendations from Oncology. MMODL / IJN: [id number] /
--- NOTE | 2023-11-07 18:36 | P.PN ---
Subjective Progress Note Date: 11/07/23 Principal diagnosis: Liver mass, abd pain In f/u today pt cont to have c/o abd pain, today she reports on the right side of the stomach "she thinks it is her "pancreas", the pain can also radiate over by her "liver", its constant, she is not certain if any of her pain medications are working. No recent fevers, nausea or vomiting, abdominal discomfort is independent of oral intake. Objective - Vital Signs Vital signs: Vital Signs Temp 99.2 F 11/07/23 07:07 Pulse 76 11/07/23 11:28 Resp 16 11/07/23 07:07 BP 133/80 11/07/23 07:07 Pulse Ox 94 L 11/07/23 07:07 FiO2 Intake & Output 11/06/23 11/07/23 11/07/23 18:59 06:59 18:59 Other: Voiding Method Toilet Toilet # Voids 3 - Constitutional General appearance: Present: cooperative, no acute distress, thin - EENT Eyes: Present: anicteric sclerae, EOMI ENT: Present: hearing grossly normal - Respiratory Respiratory: bilateral: diminished - Cardiovascular Rhythm: regular Heart sounds: normal: S1, S2 - Peripheral edema foot Peripheral Edema: bilateral: Trace (L>R) - Gastrointestinal General gastrointestinal: Present: soft, tenderness - Neurologic Neurologic: Present: CNII-XII intact - Musculoskeletal Musculoskeletal: Present: strength equal bilaterally - Psychiatric Psychiatric: Present: A&O x's 3, appropriate affect, intact judgment & insight - Labs CBC & Chem 7: 11/03/23 07:14 11/03/23 07:14 Assessment and Plan (1) Liver mass Current Visit: Yes Status: Acute Priority: High Code(s): R16.0 - H EPATOMEGALY, NOT ELSEWHERE CLASSIFIED SNOMED Code(s): 337491796 (2) Abdominal pain Current Visit: Yes Status: Acute Priority: High Code(s): R10.9 - U NSPECIFIED ABDOMINAL PAIN SNOMED Code(s): 61544773 Plan: Liver mass -Presented with abdominal pain, N,V,D x 1 mo associated with a 20lb wt loss. Mass was seen on imaging, 6.2 cm heterogeneously enhancing mass of the left hepatic dome. Small 1.2 cm lesion of the right liver lobe. Small pulmonary nodules at the lower lungs measuring up to 5 mm. Retroperitoneal and upper abdominal adenopathy measuring up to 2.1 cm. New fluid dilatation of the first part of the duodenum. Distance between the SMA and the abdominal aorta is narrowed to 5 mm, possibility of SMA syndrome. Pt had yet to follow up for biopsy. -CT CAP showed scattered pulmonary nodules, enlarging hepatic mass measuring 54 x 55 mm, scattered retroperitoneal lymph nodes -Liver biopsy path positive for non-small cell carcinoma morphological consistent with adenocarcinoma, not otherwise specified. Tumor is immunohistochemically positive for CK7 and neg for CK20, CDX2, ROBBIE-3, Estrogen Receptor, Napsin-A, p40, PAX8 and TTF-1. It is further reported that unable to entirely exclude breast, upper GI/pancrreatobiliary or [employer] origin. Recommending imaging and studies to correlate. This tissue has been requested and sent for cancer type ID testing -MRCP reporting retroperitoneal soft tissue mass versus lymphadenopathy conglomerate up to and around the SMA and celiac axis. Dilation of the extrahepatic biliary system, ERCP recommended if concerns for ampullary lesion. Scattered hepatic lesions with dominant left hepatic lobe mass, trace bilateral pleural effusions -EGD formed with esophageal, gastric and duodenal biopsies negative for malignancy -Pending discharge so outpt US of the breasts, and transvaginal US can be scheduled. Pt is agreeable to continue with testing. -It was previously discussed with patient unfortunately findings are consistent with metastatic disease. Treatment options and prognosis cannot be discussed yet until primary in known. Irregardless of primary disease is not curable but, will be treatable. Intent of any treatment will be palliation of symptoms and prolongation of life. -CA125, CEA, CA 15-3 and CA 27-29 ordered Abd pain -Secondary to above -Reviewed with patient today that until she has some type of treatment we have to come up with a realistic pain goal as her pain is not going to be 0. She verbalized understanding. -Patient is going to continue on extended release morphine and use [place] for breakthrough pain. We have sent narcotic prescriptions to [facility] pharmacy in [place]. -Medications for prevention of narcotic induce constipation are ordered Hx squamous cell lung cancer -Right lung, treated with robotic-assisted right upper lobectomy and lymph node dissection on 08/10/18. Final path, 2 cm squamous cell carcinoma, with 0/7 lymph nodes involved. Margins were negative, with no evidence of pleural invasion. MRI brain neg. No further treatment. -She established care with Dr. Sapp in March 2019. She had a MRI brain and CT CAP which were negative for any evidence of recurrent malignancy. She was placed on surveillance, with repeat scans ordered in 3 months. However, she never obtained ordered scans and was subsequently lost to follow up -Likelyhood of metastatic disease 5 years after initial diagnosis is low -Liver pathology is not consistent with squamous cell carcinoma so, this is not recurrent/metastatic disease from previous malignancy. Patient stated today that she feels it would be easier for her to get transportation as well as assistance with transportation through her insurance if she is treated closer to home. When asked where the patient would like to be seen she requested [facility]. Dr. Sapp's staff will inquire with [facility] who can see the patient soon. We will get copies of all of patient testing to them. We will get the patient a follow-up appointment there as well. She agreed with the plan
--- NOTE | 2023-11-08 09:03 | PN ---
PROGRESS NOTE DATE OF SERVICE: 11/07/2023 CHIEF COMPLAINT: Adenocarcinoma. HISTORY OF PRESENT ILLNESS: This lady is awaiting further direction from Oncology. It is not clear if she will be going home or not. PHYSICAL EXAMINATION: CHEST: Clear. CARDIAC: Normal. ABDOMEN: Soft and tender over the epigastrium. IMPRESSION: 1. Epigastric pain due to neoplasm of the liver. 2. History of CA of the lung. 3. COPD. PLAN: Await treatment disposition from Oncology. MMODL / IJN: [id number] /
[2023-11-08 13:12] VITALS: BP 139/81; PULSE 83; RESP 16; TEMP 98.4
--- NOTE | 2023-11-08 14:00 | PN ---
PROGRESS NOTE DATE OF SERVICE: 11/08/2023 CHIEF COMPLAINT: Intractable abdominal pain due to metastases of the liver. SUBJECTIVE: This lady's condition is the same and we are waiting for discharge plan from Oncology. OBJECTIVE: VITAL SIGNS: Normal. CHEST: Clear. CARDIAC: Normal. ABDOMEN: Slightly tender over the epigastrium. IMPRESSION: Metastatic neoplasm to the liver. PLAN: Discharge when cleared by Oncology. MMODL / IJN: [id number] /
--- NOTE | 2023-11-08 17:24 | P.PN ---
Subjective Progress Note Date: 11/08/23 Principal diagnosis: Liver mass, abd pain In f/u today pt is on the phone, asking when she can go home. Confirmed location of her prescriptions and she is aware. Objective - Vital Signs Vital signs: Vital Signs Temp 98.6 F 11/08/23 07:30 Pulse 76 11/08/23 11:12 Resp 18 11/08/23 07:30 BP 115/67 11/08/23 07:30 Pulse Ox 94 L 11/08/23 07:30 FiO2 Intake & Output 11/07/23 11/08/23 11/08/23 18:59 06:59 18:59 Other: Voiding Method Toilet # Voids 4 3 - Constitutional General appearance: Present: cooperative, no acute distress, thin - EENT Eyes: Present: anicteric sclerae, EOMI ENT: Present: hearing grossly normal - Respiratory Details: even and unlabored - Cardiovascular Details: well perfused - Peripheral edema leg Peripheral Edema: bilateral: None - Neurologic Neurologic: Present: CNII-XII intact - Musculoskeletal Musculoskeletal: Present: strength equal bilaterally - Psychiatric Psychiatric: Present: A&O x's 3, appropriate affect, intact judgment & insight - Labs CBC & Chem 7: 11/03/23 07:14 11/03/23 07:14 Assessment and Plan (1) Liver mass Status: Acute Priority: High Code(s): R16.0 - HEPATOMEGALY, NOT ELSEWHERE CLASSIFIED SNOMED Code(s): 747084491 (2) Abdominal pain Status: Acute Priority: High Code(s): R10.9 - UNSPECIFIED ABDOMINAL PAIN SNOMED Code(s): 32822647 Plan: Liver mass -Presented with abdominal pain, N,V,D x 1 mo associated with a 20lb wt loss. Mass was seen on imaging, 6.2 cm heterogeneously enhancing mass of the left hepatic dome. Small 1.2 cm lesion of the right liver lobe. Small pulmonary nodules at the lower lungs measuring up to 5 mm. Retroperitoneal and upper abdominal adenopathy measuring up to 2.1 cm. New fluid dilatation of the first part of the duodenum. Distance between the SMA and the abdominal aorta is narrowed to 5 mm, possibility of SMA syndrome. Pt had yet to follow up for biopsy. -CT CAP showed scattered pulmonary nodules, enlarging hepatic mass measuring 54 x 55 mm, scattered retroperitoneal lymph nodes -Liver biopsy path positive for non-small cell carcinoma morphological consistent with adenocarcinoma, not otherwise specified. Tumor is immunohistochemically positive for CK7 and neg for CK20, CDX2, ROBBIE-3, Estrogen Receptor, Napsin-A, p40, PAX8 and TTF-1. It is further reported that unable to entirely exclude breast, upper GI/pancrreatobiliary or Quantitative Analyst Developer origin. Recommending imaging and studies to correlate. This tissue has been requested and sent for cancer type ID testing-this is still pending -MRCP reporting retroperitoneal soft tissue mass versus lymphadenopathy con glomerate up to and around the SMA and celiac axis. Dilation of the extrahepatic biliary system, ERCP recommended if concerns for ampullary lesion. Scattered hepatic lesions with dominant left hepatic lobe mass, trace bilateral pleural effusions -EGD formed with esophageal, gastric and duodenal biopsies negative for malignancy -Pending discharge so outpt US of the breasts, and transvaginal US can be scheduled. Pt is agreeable to continue with testing. -It was previously discussed with patient unfortunately findings are consistent with metastatic disease. Treatment options and prognosis cannot be discussed yet until primary in known. Irregardless of primary disease is not curable but, will be treatable. Intent of any treatment will be palliation of symptoms and prolongation of life. -CA125, CEA, CA 15-3 and CA 27-29 were all within normal defined limits Abd pain -Secondary to above -Reviewed with patient today that until she has some type of treatment we have to come up with a realistic pain goal as her pain is not going to be 0. She verbalized understanding. -Patient is going to continue on extended release morphine and use [place] for breakthrough pain. We have sent narcotic prescriptions to [facility]'s pharmacy in [place]. -Medications for prevention of narcotic induce constipation recommended Hx squamous cell lung cancer -Right lung, treated with robotic-assisted right upper lobectomy and lymph node dissection on 08/10/18. Final path, 2 cm squamous cell carcinoma, with 0/7 lymph nodes involved. Margins were negative, with no evidence of pleural invasion. MRI brain neg. No further treatment. -She established care with Dr. Sapp in March 2019. She had a MRI brain and CT CAP which were negative for any evidence of recurrent malignancy. She was placed on surveillance, with repeat scans ordered in 3 months. However, she never obtained ordered scans and was subsequently lost to follow up -Liver pathology is not consistent with squamous cell carcinoma so, this is not recurrent/metastatic disease from previous malignancy. Pt info sent to Oncology in [place]. They should be contacting patient for an appointment. We will follow-up on the same to make sure that this is done.
--- NOTE | 2023-11-09 13:36 | DS ---
DISCHARGE SUMMARY CHIEF COMPLAINT: Abdominal pain. HISTORY OF PRESENT ILLNESS AND PHYSICAL EXAMINATION: Details of this lady's history and physical can be found in the initial workup. LABORATORY STUDIES: While she is in the hospital, she had laboratory studies, details of which can be found in the laboratory section of her chart. COURSE IN THE HOSPITAL: After admission, she was placed on bedrest and started on started on intravenous fluids and begun on workup of her abdominal pain. She was found to have a large liver mass which was subsequently biopsied and revealed adenocarcinoma. Primary was unknown. She was seen in consult by Oncology and followed and decision was made that she could be discharged on the to outpatient management. She will come to the office in several days for followup and it sounds as though her therapy may be arranged through [facility]. FINAL DIAGNOSES: 1. Abdominal pain. 2. Adenocarcinoma, metastatic to the liver. 3. 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 4. Chronic obstructive pulmonary disease. 5. Rheumatoid arthritis. OPERATIONS: Biopsy of the liver. CONSULTATIONS: Oncology. MMODL / IJN: [id number] /
--- NOTE | 2023-12-14 13:34 | CDI ---
Documentation Clarification Form Date: 10/26/2023 01:21:00 PM From: Alanis Londono RN CCDS Phone: [phone] Admit Date: 10/24/2023 05:09:00 PM Patient Name: Paige Simmons Visit Number: [id number] Discharge Date: 11/08/2023 01:40:00 PM ATTENTION: The Clinical Documentation Specialists (CDI) and [facility] Coding Staff appreciate your assistance in clarifying documentation. Please respond to the clarification below the line at the bottom and electronically sign. The CDI & [facility] Coding staff will review the response and follow-up if needed. Please note: Queries are made part of the Legal Health Record. If you have any questions, please contact the author of this message via ITS. Dr. Delvis Asher Malnutrition is documented 10/24, Nutritional assessment by Dietitian. Additional clarification regarding the severity of malnutrition is requested. History/Risk Factors: 63-year-old female presents to the ED with intractable abdominal pain, nausea, vomiting and diarrhea. Medical History: recent diagnosis of liver mass. ED note, 10/23 Clinical Indicators: RD Consult Assessment: MST = 2 (14 -23# wt loss) Nutritional intake: Poor, 0-25% consumed. Nutritional concerns: Abdominal distention, Diarrhea, Nausea and vomiting. Labs 10/23 NA 136, CR 0.34. The patient is underweight. Current BMI:15.4; Wgt 40.823kg Hgt 5ft 4in Estimated Needs in Kcals: Energy needs 1825Kcal. KCAL comment MSJ BMR = 948 x 1.4 AF + 500 for wt gain. Patient meeing <25% of est.calorie needs. Estimated Protein Needs: Estimated protein range 1.2g/kg; Estimated protein needs 50grams/day. Protein comment: Patient meeting <10% of est protein needs. Estimated Fluid Needs: Fluid formula 1ml/Kcal , Estimated fluid needs 1825mls/day Treatment: Increase PO intake from 50% - 75%, Tolerating PO diet by discharge. Clear liquids per surgery team: RD recommends full liquids as able. Monitor PO intake. Supplements: Ensure clear TID, Monitor supplement intake. Please clarify the severity of malnutrition, if known: [ ] Severe Protein-Calorie Malnutrition [ ] Other condition, please specify [ ] Unable to Determine (Template Last Revised: January 2023) MTDD
== END 2023-11-08 13:40 | disposition home health service (06) | DRG 436 ==
LOC: EC 13:25 → 5NMEDONC 17:09
PROVIDERS: ADMIT Family Medicine; ATTEND Family Medicine
PROC: 0DB58ZX Excision of Esophagus, Via Natural or Artificial Opening Endoscopic, Diagnostic (ICD-10-PCS; 2023-11-03)
PROC: 0DB78ZX Excision of Stomach, Pylorus, Via Natural or Artificial Opening Endoscopic, Diagnostic (ICD-10-PCS; 2023-11-03)
PROC: 0DB98ZX Excision of Duodenum, Via Natural or Artificial Opening Endoscopic, Diagnostic (ICD-10-PCS; 2023-11-03)
PROC: 0FB23ZX Excision of Left Lobe Liver, Percutaneous Approach, Diagnostic (ICD-10-PCS; principal; 2023-11-07)
DX: C78.7 Secondary malignant neoplasm of liver and intrahepatic bile duct (principal); K22.10 Ulcer of esophagus without bleeding; Z68.1 Body mass index [BMI] 19.9 or less, adult; F10.21 Alcohol dependence, in remission; F17.210 Nicotine dependence, cigarettes, uncomplicated; F31.9 Bipolar disorder, unspecified; F41.0 Panic disorder [episodic paroxysmal anxiety]; R59.0 Localized enlarged lymph nodes; M19.90 Unspecified osteoarthritis, unspecified site; G89.3 Neoplasm related pain (acute) (chronic); C80.1 Malignant (primary) neoplasm, unspecified; J44.9 Chronic obstructive pulmonary disease, unspecified; K21.9 Gastro-esophageal reflux disease without esophagitis; K29.50 Unspecified chronic gastritis without bleeding; K59.00 Constipation, unspecified; M06.9 Rheumatoid arthritis, unspecified; R63.6 Underweight; Z79.51 Long term (current) use of inhaled steroids; Z79.82 Long term (current) use of aspirin; Z79.890 Hormone replacement therapy; Z79.899 Other long term (current) drug therapy; Z80.1 Family history of malignant neoplasm of trachea, bronchus and lung; Z80.8 Family history of malignant neoplasm of other organs or systems; Z90.2 Acquired absence of lung [part of]; Z86.79 Personal history of other diseases of the circulatory system; Z71.3 Dietary counseling and surveillance; Z86.718 Personal history of other venous thrombosis and embolism; Z28.21 Immunization not carried out because of patient refusal; Z65.3 Problems related to other legal circumstances
CPT/HCPCS: 36415; 43239; 47000; 71260; 74170; 74177; 74181; 77012; 80048; 80053; 81001; 82150; 82378; 82565; 83605; 83690; 84520; 85025; 85027; 85610; 85730; 86300; 86301; 86304; 88305; 88307; 88341; 88342; 94640; 94760; 96361; 96374; 96375; 96376; 99285

== ENCOUNTER 2023-12-03 12:40 | Inpatient (IN) | payer MEDICARE, OTHER ==
[2023-12-03] MEDS: MORPHINE SULFATE 4 MG/ML SYRINGE IVP STA (13:24)
[2023-12-03] MEDS: SODIUM CHLORIDE 0.9% 1,000 ML IV STA (13:25)
[2023-12-03 13:32] LABS: Anisocytosis Slight; Basophils % (A) 0 %; Eosinophils % (A) 1 %; HCT 44.2 % (34.0-46.0); Lymphocytes # (A) 1.4 k/uL (1.0-4.8); Lymphocytes % (A) 17 %; MCH 30.4 pg (25.0-35.0); MCHC 32.1 g/dL (31.0-37.0); MCV 94.6 fL (80.0-100.0); Mean Platelet Volume 7.4; Monocytes # (A) 0.4 k/uL (0-1.0); Monocytes % (A) 5 %; Neutrophils # (A) 6.1 k/uL (1.3-7.7); Neutrophils % (A) 77 %; Platelet Count 286 k/uL (150-450); RBC 4.67 m/uL (3.80-5.40); RDW 16.2 % (11.5-15.5)
[2023-12-03 13:45] LABS: HGB 14.2 gm/dL (11.4-16.0)
[2023-12-03 14:08] LABS: ALT 14 U/L (4-34); AST 24 U/L (14-36); African American GFR (CKD) >90 (>60 ml/min/1.73 sqM); Albumin 3.8 g/dL (3.5-5.0); Alkaline Phosphatase 144 U/L (38-126); Anion Gap 6 mmol/L; Blood Urea Nitrogen 7 mg/dL (7-17); Calcium 8.6 mg/dL (8.4-10.2); Carbon Dioxide 26 mmol/L (22-30); Chloride 102 mmol/L (98-107); Glucose 103 mg/dL (74-99); Non-African American GFR(CKD) >90 (>60 ml/min/1.73 sqM); Potassium 3.4 mmol/L (3.5-5.1); Sodium 134 mmol/L (137-145); Total Bilirubin 0.7 mg/dL (0.2-1.3); Total Protein 7.2 g/dL (6.3-8.2)
[2023-12-03] MEDS ORDERED: NALOXONE 0.4 MG/ML 1 ML VIAL IV PRN (14:29)
--- NOTE | 2023-12-03 14:41 | ED ---
General Adult HPI - General Chief complaint: Abdominal Pain Stated complaint: Abd pain Time Seen by Provider: 12/03/23 13:00 Source: family, EMS, RN notes reviewed, old records reviewed Mode of arrival: EMS Limitations: no limitations - History of Present Illness Initial comments: Patient is a 63-year-old female who presents emergency department for weakness, decreased oral intake. Has metastatic cancer. Is due to go on palliative care/hospice next week however does not believe she can wait that long. Has continued to have bad abdominal pain as well as the weakness and poor oral intake. Presents for admission for inpatient and evaluation for hospice on an inpatient basis. No other acute complaints at this time. Is alert and oriented x 4. - Related Data Home Medications Medication Instructions Recorded Confirmed Albuterol Inhaler [Ventolin Hfa 2 puff INHALATION RT-QID PRN 09/25/17 12/03/23 Inhaler] Sertraline [Zoloft] 100 mg PO BID 09/25/17 12/03/23 Atorvastatin [Lipitor] 40 mg PO DAILY 10/24/23 12/03/23 Budesonide/Formoterol Fumarate 2 puff INHALATION RT-BID 10/24/23 12/03/23 [Symbicort 80-4.5 Mcg Inhaler] Cholecalciferol [Vitamin D3 (25 50 mcg PO DAILY 10/24/23 12/03/23 Mcg = 1000 Iu)] Ipratropium-Albuterol Nebulize 3 ml INHALATION RT-QID 10/24/23 12/03/23 [Duoneb 0.5 mg-3 mg/3 ml Soln] Levothyroxine Sodium [Synthroid] 200 mcg PO DAILY 10/24/23 12/03/23 Meloxicam [Mobic] 7.5 mg PO BID PRN 10/24/23 12/03/23 Memantine [Namenda] 10 mg PO BID 10/24/23 12/03/23 Pantoprazole Sodium [Protonix] 20 mg PO DAILY 10/24/23 12/03/23 QUEtiapine FUMARATE [SEROquel XR] 600 mg PO HS@2100 10/24/23 12/03/23 QUEtiapine [SEROquel] 100 mg PO BID@0900,1200 10/24/23 12/03/23 hydrOXYzine HCL [Atarax] 50 mg PO TID PRN 10/24/23 12/03/23 lisinopriL [Zestril] 10 mg PO DAILY 10/24/23 12/03/23 traMADol HCL 50 mg PO DAILY PRN 10/24/23 12/03/23 ALPRAZolam [Xanax] 1 mg PO TID PRN 12/03/23 12/03/23 HYDROcodone/APAP 10-325MG [[place] 1 tab PO Q4HR PRN 12/03/23 12/03/23 10-325] Morphine Sulfate ER [Ms Contin] 30 mg PO Q12HR 12/03/23 12/03/23 Ondansetron [Zofran] 4 mg PO Q8HR PRN 12/03/23 12/03/23 Allergies Allergy/AdvReac Type Severity Reaction Status Date / Time codeine Allergy Rash/Hives Verified 12/03/23 14:43 Review of Systems ROS Statement: Those systems with pertinent positive or pertinent negative responses have been documented in the HPI. Review of Systems: CONST: Denies fever EYES: Denies blurry vision ENT: Denies nasal congestion C/V: Denies Chest pain RESP: Denies shortness of breath GI: Endorses abdominal pain : Denies dysuria SKIN: Denies rash. MSK: Denies joint pain. NEURO: Denies headache ROS Other: All systems not noted in ROS Statement are negative. Past Medical History Past Medical History: Cancer, Chest Pain / Angina, COPD, Osteoarthritis (OA), Rheumatoid Arthritis (RA), Thyroid Disorder Additional Past Medical History / Comment(s): ATHRITIS, VERTIGO, cerebral aneurysm, subdural hematoma, left sided aneurysm, recovering alcoholic History of Any Multi-Drug Resistant Organisms: None Reported Past Surgical History: Cholecystectomy Additional Past Surgical History / Comment(s): SUBDURAL HEMATOMA, ANEURYSM, Lobectomy 2019 Past Anesthesia/Blood Transfusion Reactions: No Reported Reaction Past Psychological History: Anxiety, Bipolar, Depression, Panic Disorder Smoking Status: Current every day smoker Past Alcohol Use History: None Reported Past Drug Use History: None Reported, Marijuana - Past Family History Mother Family Medical History: Dementia Father Family Medical History: Cancer Additional Family Medical History / Comment(s): mouth cancer Brother(s) Family Medical History: Cancer Additional Family Medical History / Comment(s): lung cancer General Exam - General Exam Comments Initial Comments: General: Patient is cachectic, in moderate distress from pain. HEAD: Normal with no signs of head trauma. EYES: PERRLA, EOMI, conjunctiva normal, no discharge. ENT: Hearing grossly intact, normal oropharynx. RESPIRATORY: Clear breath sounds bilaterally. No wheezes, rales, or rhonchi. C/V: Regular rate and rhythm. S1 and S2 auscultated, no edema, peripheral pulses 2+ and intact throughout ABD: Abd is soft, no significant distention. Tender to palpation diffusely. This is chronic for the patient since cancer diagnosis. EXT: Normal range of motion, no obvious deformity SKIN: No rashes or lesions observed on exposed skin. NEURO: Alert and oriented x 4. Limitations: no limitations Course Vital Signs 12/03/23 12/03/23 12/03/23 12:43 14:16 16:22 Temperature 98.2 F Pulse Rate 73 75 70 Respiratory 18 20 18 Rate Blood Pressure 179/102 181/108 170/108 O2 Sat by Pulse 99 99 95 Oximetry 12/03/23 12/03/23 12/03/23 17:00 19:00 20:09 Temperature Pulse Rate 86 97 97 Respiratory 18 16 Rate Blood Pressure 171/103 127/95 O2 Sat by Pulse 97 97 Oximetry 12/03/23 20:13 Temperature Pulse Rate 99 Respiratory Rate Blood Pressure O2 Sat by Pulse Oximetry Medical Decision Making - Medical Decision Making Was pt. sent in by a medical professional or institution ([facility] Flood, EXT JS DEVELOPER, urgent care, hospital, or care home...) When possible be specific @ -No Did you speak to anyone other than the patient for history (EMS, parent, family, police, friend...)? What history was obtained from this source @ -No Did you review nursing and triage notes (agree or disagree)? Why? @ -I reviewed and agree with nursing and triage notes Were old charts reviewed (outside hosp., previous admission, EMS record, old EKG, old radiological studies, urgent care reports/EKG's, care home records)? Report findings @ -No old charts were reviewed Differential Diagnosis (chest pain, altered mental status, abdominal pain women, abdominal pain men, vaginal bleeding, weakness, fever, dyspnea, syncope, headache, dizziness, GI bleed, back pain, seizure, CVA, palpatations, mental health, musculoskeletal)? @ -Dehydration, weakness, metastatic cancer, encounter for palliative care. This list is not all inclusive. EKG interpreted by me (3pts min.). @ -None done X-rays interpreted by me (1pt min.). @ -None done CT interpreted by me (1pt min.). @ -None done U/S interpreted by me (1pt. min.). @ -None done What testing was considered but not performed or refused? (CT, X-rays, U/S, labs)? Why? @ -None What meds were considered but not given or refused? Why? @ -None Did you discuss the management of the patient with other professionals (professionals i.e. Dr., PA, EXT JS DEVELOPER, lab, RT, psych nurse, social work coordinator, customer service analyst, teacher, education officer, outpatient case manager)? Give summary @ -Spoke with the admitting physician, Dr. Leiva of [facility] who accepted the admission.[facility] is covering for Dr. Asher. Was smoking cessation discussed for >3mins.? @ -No Was critical care preformed (if so, how long)? @ -No Were there social determinants of health that impacted care today? How? (Homelessness, low income, unemployed, alcoholism, drug addiction, transportation, low edu. Level, literacy, decrease access to med. care, assisted, rehab)? @ -No Was there de-escalation of care discussed even if they declined (Discuss DNR or withdrawal of care, Hospice)? DNR status @ -No What co-morbidities impacted this encounter? (DM, HTN, Smoking, COPD, CAD, Can cer, CVA, ARF, Chemo, Hep., AIDS, mental health diagnosis, sleep apnea, morbid obesity)? @ -None Was patient admitted / discharged? Hospital course, mention meds given and route, prescriptions, significant lab abnormalities, going to OR and other pertinent info. @ -Based on the patient's presentation and physical exam, patient is asking for hospice. She is weak, appears dehydrated with metastatic cancer. She is ANO x 4. She is due to going to palliative care and hospice next week but does not believe she can wait that long was asking for admission for IV hydration as well as hospice evaluation. I believe this is reasonable. We did discuss her CODE STATUS and she is DNR/DNI. This was updated in the chart. Nursing staff confirmed with me. She is able to make her own decisions. Will obtain basic labs and admit the patient. She is given IV fluids as well as IV analgesia medications. Patient was in agreement this plan. Laboratory studies remarkable for mild hypokalemia which was replenished. Patient was updated. She will be admitted at this time. I spoke with Dr. Leiva of [facility] who accepted the admission. Hospice is consulted. Undiagnosed new problem with uncertain prognosis? @ -No Drug Therapy requiring intensive monitoring for toxicity (Heparin, Nitro, Insulin, Cardizem)? @ -No Were any procedures done? @ -No Diagnosis/symptom? @ -Metastatic cancer, weakness, encounter for hospice care, hypokalemia Acute, or Chronic, or Acute on Chronic? @ -Acute Uncomplicated (without systemic symptoms) or Complicated (systemic symptoms)? @ -Complicated Side effects of treatment? @ -No Exacerbation, Progression, or Severe Exacerbation? @ -No Poses a threat to life or bodily function? How? (Chest pain, USA, DE, pneumonia, PE, COPD, DKA, ARF, appy, cholecystitis, CVA, Diverticulitis, Homicidal, Suicidal, threat to staff... and all critical care pts) @ -Yes - Lab Data Result diagrams: 12/03/23 13:23 12/03/23 13:23 Lab Results 12/03/23 12/03/23 Range/Units 13:23 13:23 WBC 8.0 (3.8-10.6) k/uL RBC 4.67 (3.80-5.40) m/uL Hgb 14.2 D (11.4-16.0) gm/dL Hct 44.2 (34.0-46.0) % MCV 94.6 (80.0-100.0) fL MCH 30.4 (25.0-35.0) pg MCHC 32.1 (31.0-37.0) g/dL RDW 16.2 H (11.5-15.5) % Plt Count 286 (150-450) k/uL MPV 7.4 Neutrophils % 77 % Lymphocytes % 17 % Monocytes % 5 % Eosinophils % 1 % Basophils % 0 % Neutrophils # 6.1 (1.3-7.7) k/uL Lymphocytes # 1.4 (1.0-4.8) k/uL Monocytes # 0.4 (0-1.0) k/uL Eosinophils # 0.0 (0-0.7) k/uL Basophils # 0.0 (0-0.2) k/uL Anisocytosis Slight Sodium 134 L (137-145) mmol/L Potassium 3.4 L (3.5-5.1) mmol/L Chloride 102 (98-107) mmol/L Carbon Dioxide 26 (22-30) mmol/L Anion Gap 6 mmol/L BUN 7 (7-17) mg/dL Creatinine 0.34 L (0.52-1.04) mg/dL Est GFR (CKD-EPI)AfAm >90 (>60 ml/min/1.73 sqM) Est GFR (CKD-EPI)NonAf >90 (>60 ml/min/1.73 sqM) Glucose 103 H (74-99) mg/dL Calcium 8.6 (8.4-10.2) mg/dL Total Bilirubin 0.7 (0.2-1.3) mg/dL AST 24 (14-36) U/L ALT 14 (4-34) U/L Alkaline Phosphatase 144 H (38-126) U/L Total Protein 7.2 (6.3-8.2) g/dL Albumin 3.8 (3.5-5.0) g/dL Disposition Clinical Impression: Metastatic cancer, Weakness, Encounter for hospice care, Hypokalemia Disposition: ADMITTED IP TO THIS [facility] Condition: Stable Time of Disposition: 14:29
[2023-12-03] MEDS ORDERED: ALBUTEROL HFA INHALER INHALATION PRN (15:44)
[2023-12-03] MEDS ORDERED: traMADol 50 MG TAB PO PRN (15:49)
[2023-12-03] MEDS: HYDROmorphone 1 MG/ML 1 ML SYRINGE IVP PRN (16:16)
[2023-12-03] MEDS: amLODIPine 10 MG TAB PO SCH (16:18)
[2023-12-03] MEDS: POTASSIUM CHLORIDE ER 20 MEQ TAB.ER PO STA (16:18)
[2023-12-03] MEDS: lisinopriL 10 MG TAB PO SCH (16:19)
[2023-12-03] MEDS: LEVOTHYROXINE 100 MCG TAB PO SCH (16:21)
[2023-12-03] MEDS: NICOTINE 14MG/24HR PATCH TRANSDERM SCH (16:21)
[2023-12-03] MEDS ORDERED: traMADol 50 MG TAB PO SCH (18:00)
[2023-12-03] MEDS: IPRATROPIUM-ALBUTEROL 3 ML NEB INHALATION SCH (18:08)
[2023-12-03] MEDS: HYDROcodone/APAP 10-325MG 1 EACH TAB PO PRN (18:23)
[2023-12-03] MEDS: SYMBICORT 80-4.5 MCG INHALER INHALATION SCH (20:07)
[2023-12-03] MEDS: ALPRAZolam 1 MG TAB PO PRN (21:30)
[2023-12-03] MEDS: MORPHINE SULFATE ER 30 MG TABLET PO SCH (21:58)
[2023-12-03] MEDS: SERTRALINE 100 MG TAB PO SCH (21:58)
[2023-12-03] MEDS: PANTOPRAZOLE 40 MG/10 ML VIAL IVP SCH (21:58)
[2023-12-03] MEDS: SODIUM CHLORIDE 0.9% 1,000 ML IV SCH (22:06)
[2023-12-03] MEDS: MEMANTINE 10 MG TAB PO SCH (22:53)
[2023-12-03] MEDS: QUEtiapine 100 MG TAB PO SCH (22:53)
--- NOTE | 2023-12-03 23:56 | HP ---
HISTORY AND PHYSICAL CHIEF COMPLAINT: Abdominal pain. HISTORY OF PRESENT ILLNESS: This is a 63-year-old woman with a past medical history of multiple medical problems including rheumatoid arthritis, anxiety, depression, bipolar, history of liver mass, abdominal pain, also had a liver biopsy which was positive for non-small cell carcinoma, morphologically consistent with adenocarcinoma, primary unknown. The patient has apparently been scheduled to have outpatient palliative care, but the patient had increasing abdominal pain and difficulty . The patient presented to the ER for further evaluation and treatment at this time. There is no history of any fever, rigors, or chills at this time. PAST MEDICAL HISTORY: Liver mass, adenocarcinoma, COPD, metastatic malignancy. Rest of the history and rest of the chart is also reviewed. HOME MEDICATIONS: Reviewed include Seroquel, dose and rest of medications reviewed. ALLERGIES: Codeine. FAMILY HISTORY: History of dementia and mouth cancer. SOCIAL HISTORY: Smoking. REVIEW OF SYSTEMS: A 14-point review is negative except as mentioned. PHYSICAL EXAMINATION: VITAL SIGNS: Pulse is 73, blood pressure n, respirations 18. HEENT: Conjunctivae normal. NECK: No jugular venous distention. RESPIRATIONS: Diminished at the bases, few scattered rhonchi. ABDOMEN: Soft, mild diffuse tenderness present. No guarding, no rigidity. No mass palpable. LEGS: No edema. No swelling. SKIN: No ulcer, rash, bleeding. JOINTS: No active deforming arthropathy. LABS: Sodium 134, potassium 3.4. ASSESSMENT: 1. Severe abdominal pain with failure of outpatient treatment. 2. Possibly metastatic liver cancer from non-small cell adenocarcinoma, primary unknown. 3. Chronic obstructive pulmonary disease. 4. Degenerative joint disease. 5. Rheumatoid arthritis. 6. Anxiety, bipolar depression. 7. History of nicotine dependence. RECOMMENDATIONS AND DISCUSSION: This 63-year-old woman presented with multiple complex medical issues. We will initiate IV Dilaudid p.r.n. and rest of the medications. Pain management, consult hospice per patient's wishes. The patient is currently no code. Resume the home medications. Overall prognosis is extremely guarded because of multiple complex medical issues. Further recommendations to follow. MMODL / IJN: [id number] / MTDD
[2023-12-04] MEDS: ONDANSETRON 4 MG/2 ML VIAL IVP PRN (01:08)
[2023-12-04] MEDS: CHOLECALCIFEROL 25 MCG (1000 IU) TABLET PO SCH (08:03)
[2023-12-04] MEDS: QUEtiapine 100 MG TAB PO SCH (08:04)
[2023-12-04] MEDS: ATORVASTATIN 40 MG TAB PO SCH (08:04)
[2023-12-04] MEDS: HYDROmorphone 0.5 MG/0.5 ML SYRINGE IVP PRN (08:06)
[2023-12-04 08:07] LABS: Anisocytosis Slight; Basophils # (A) 0.1 k/uL (0-0.2); Basophils % (A) 1 %; Eosinophils # (A) 0.1 k/uL (0-0.7); Eosinophils % (A) 2 %; HCT 39.5 % (34.0-46.0); HGB 12.4 gm/dL (11.4-16.0); Lymphocytes # (A) 1.7 k/uL (1.0-4.8); Lymphocytes % (A) 32 %; MCH 30.6 pg (25.0-35.0); MCHC 31.3 g/dL (31.0-37.0); MCV 97.8 fL (80.0-100.0); Macrocytosis Slight; Monocytes # (A) 0.3 k/uL (0-1.0); Monocytes % (A) 5 %; Neutrophils % (A) 59 %; Platelet Count 257 k/uL (150-450); RBC 4.04 m/uL (3.80-5.40); RDW 16.4 % (11.5-15.5); WBC 5.2 k/uL (3.8-10.6)
[2023-12-04 08:21] LABS: African American GFR (CKD) >90 (>60 ml/min/1.73 sqM); Anion Gap 3 mmol/L; Blood Urea Nitrogen 9 mg/dL (7-17); Calcium 8.3 mg/dL (8.4-10.2); Carbon Dioxide 23 mmol/L (22-30); Chloride 106 mmol/L (98-107); Glucose 83 mg/dL (74-99); Non-African American GFR(CKD) >90 (>60 ml/min/1.73 sqM); Sodium 132 mmol/L (137-145)
[2023-12-04 08:33] LABS: Potassium 4.6 mmol/L (3.5-5.1)
[2023-12-04] MEDS: LACTULOSE 20 GM/30 ML CUP PO SCH (15:34)
--- NOTE | 2023-12-04 23:02 | PN ---
PROGRESS NOTE DATE OF SERVICE: 12/04/2023 I am covering for Dr. Asher. SUBJECTIVE: This is a 63-year-old woman, who was admitted with severe abdominal pain with possibly liver cancer and METS, is being closely monitored. The patient's blood pressure is borderline. No chest pain. No palpitations. No fever. OBJECTIVE: VITAL SIGNS: Pulse 77, blood pressure 112/70, respirations 18. CHEST: Clear to auscultation. CARDIOVASCULAR: S1, S2. ABDOMEN: Soft, minimal diffuse tenderness. LABORATORY DATA: Reviewed. ASSESSMENT: 1. Severe abdominal pain, intractable with failure of outpatient treatment. 2. Possible metastatic liver cancer from non-small cell adenocarcinoma, primary unknown. 3. Chronic obstructive pulmonary disease. 4. Degenerative joint disease. 5. Rheumatoid arthritis. 6. Anxiety, bipolar depression. 7. History of nicotine dependence. 8. No code. No CPR. No vent. RECOMMENDATIONS: I would recommend to continue current management, continue symptomatic treatment. Arrange the pain medications. I would recommend to stop all the antihypertensive medications because of the low blood pressure. Closely follow with Hematology/Oncology and Dr. Asher will follow tomorrow. Continue rest of medications. Possible Hospice. MMODL / IJN: [id number] /
--- NOTE | 2023-12-05 07:35 | P.CONS ---
History of Present Illness - Reason for Consult Consult date: 12/04/23 malignancy hx Requesting physician: Ramona Leiva - Chief Complaint abd pain ,weakness - History of Present Illness Patient is a 63 year old female with a significant history of brain aneurysms with subdural hematomas at least 2 craniotomies, lung cancer, nicotine dependenc e and previous history of ETOH abuse. Patient was seen in the ER at [facility], in November 2017 for concern for possible brain aneurysm or carotid dissection. A CT of the neck revealed a spiculated nodule in the right upper lobe incidentally. The patient was referred to cardiothoracic surgery at the time was not able to keep her appointments that she was incarcerated. She had a CT scan of the chest which confirmed a solitary spiculated nodule in the right upper lobe that was suspicious. The patient missed several appointments in the subsequent months for various reasons. She was ultimately seen in 08/12, by Dr. Rogers, CT surgery. She had a PET scan done, which showed intense uptake in the right upper lobe density, with no evidence of uptake at other sites. The patient subsequently underwent robotic-assisted right upper lobectomy and lymph node dissection on 08/10/18. 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 Margins were negative, with no evidence of pleural invasion. The patient had a somewhat complicated post op course including need for bronchoscopy for mucous plugging. She was then in rehabilitation for more than a month and a half. After discharge, she continued to have some personal issues and followed up with CT surgery several months after her initial operation. She was advised to establish follow-up with oncology and was therefore referred here by her primary care physician and seen in March 2019. She had a MRI brain and CT CAP which were negative for any evidence of recurrent malignancy. She was placed on surveillance, with repeat scans ordered in 3 months. She never obtained ordered scans and was subsequently lost to follow up. She was then seen on consult at [facility] on 10/26/2023 after presenting with complaints of abdominal pain, and nausea vomiting diarrhea. She reports symptoms have been ongoing for approximately 1 month. She states that she was seen at [facility] a couple weeks prior for similar symptoms, and was diagnosed with a liver mass that was found on imaging. She reported she had follow-up with a doctor in [place] but does not recall his name who wanted her to set up a biopsy but she had yet to do so. CT abdomen pelvis with IV contrast only obtained on 10/02/23 was reviewed from [facility], revealing a 6.2 cm heterogeneously enhancing mass of the left hepatic dome. Small 1.2 cm lesion of the right liver lobe. Small pulmonary nodules at the lower lungs measuring up to 5 mm. Retroperitoneal and upper abdominal adenopathy measuring up to 2.1 cm. New fluid dilatation of the first part of the duodenum. Distance between the SMA and the abdominal aorta is narrowed to 5 mm, possibility of SMA syndrome. CT CAP showed scattered pulmonary nodules, enlarging hepatic mass measuring 54 x 55 mm, and scattered retroperitoneal lymph nodes. Liver biopsy path positive for non-small cell carcinoma morphological consistent with adenocarcinoma, not otherwise specified. Tumor is immunohistochemically positive for CK7 and neg for CK20, CDX2, ROBBIE-3, Estrogen Receptor, Napsin-A, p40, PAX8 and TTF-1. It is further reported that unable to entirely exclude breast, upper GI/pancrreatobiliary or [employer] origin. MRCP reporting retroperitoneal soft tissue mass versus lymphadenopathy conglomerate up to and around the SMA and celiac axis. Dilation of the extrahepatic biliary system, Scattered hepatic lesions with dominant left hepatic lobe mass, trace bilateral pleural effusion. EGD performed with esophageal, gastric and duodenal biopsies negative for malignancy. Pathology was sent for cancer type ID testing to further evaluate primary site,but testing was denied by patient's insurance. We had planned to schedule outpt US of the breasts, and transvaginal US, but patient had decided to f/u with oncologist in [place] upon discharge and records were forwarded to their office. Patient states since d/c she had f/u with her oncologist in [place], and per pt, she was told that chemo was her only treatment option. Patient does not recall if additional testing performed to identify primary site and if they had discussed other possible treatments like IO or targeted therapy. She was scheduled to meet with hospice tomorrow but states she was experiencing increased abd pain, weakness, and poor oral intake that has progressively worsened causing her to present to the ER for further evaluation. Labs reviewed. WBC 5.2, hgb 12.4, plts 257,000. Creatinine 0.38, GFR >90. LFTs stable, bilirubin WNL. Review of Systems 10 point ROS is negative except as stated in the HPI Past Medical History Past Medical History: Cancer, Chest Pain / Angina, COPD, Osteoarthritis (OA), Rheumatoid Arthritis (RA), Thyroid Disorder Additional Past Medical History / Comment(s): ATHRITIS, VERTIGO, cerebral aneurysm, subdural hematoma, left sided aneurysm, recovering alcoholic History of Any Multi-Drug Resistant Organisms: None Reported Past Surgical History: Cholecystectomy Additional Past Surgical History / Comment(s): SUBDURAL HEMATOMA, ANEURYSM, Lobectomy 2019 Past Anesthesia/Blood Transfusion Reactions: No Reported Reaction Past Psychological History: Anxiety, Bipolar, Depression, Panic Disorder Smoking Status: Current every day smoker Past Alcohol Use History: None Reported Additional Past Alcohol Use History / Comment(s): Patient states she has been sober for 28 years until last (September 22) when she got "very, very drunk" and drank , Tuesday and into Tuesday due to a period of very high anxiety. Past Drug Use History: None Reported, Marijuana Additional Drug Use History / Comment(s): 3 to 4 cigarettes daily. - Past Family History Mother Family Medical History: Dementia Father Family Medical History: Cancer Additional Family Medical History / Comment(s): mouth cancer Brother(s) Family Medical History: Cancer Additional Family Medical History / Comment(s): lung cancer Medications and Allergies Home Medications Medication Instructions Recorded Confirmed Type Albuterol Inhaler [Ventolin Hfa 2 puff INHALATION RT-QID PRN 09/25/17 12/03/23 History Inhaler] Sertraline [Zoloft] 100 mg PO BID 09/25/17 12/03/23 History Atorvastatin [Lipitor] 40 mg PO DAILY 10/24/23 12/03/23 History Budesonide/Formoterol Fumarate 2 puff INHALATION RT-BID 10/24/23 12/03/23 His tory [Symbicort 80-4.5 Mcg Inhaler] Cholecalciferol [Vitamin D3 (25 50 mcg PO DAILY 10/24/23 12/03/23 History Mcg = 1000 Iu)] Ipratropium-Albuterol Nebulize 3 ml INHALATION RT-QID 10/24/23 12/03/23 History [Duoneb 0.5 mg-3 mg/3 ml Soln] Levothyroxine Sodium [Synthroid] 200 mcg PO DAILY 10/24/23 12/03/23 History Meloxicam [Mobic] 7.5 mg PO BID PRN 10/24/23 12/03/23 History Memantine [Namenda] 10 mg PO BID 10/24/23 12/03/23 History Pantoprazole Sodium [Protonix] 20 mg PO DAILY 10/24/23 12/03/23 History QUEtiapine FUMARATE [SEROquel XR] 600 mg PO HS@2100 10/24/23 12/03/23 History QUEtiapine [SEROquel] 100 mg PO BID@0900,1200 10/24/23 12/03/23 History hydrOXYzine HCL [Atarax] 50 mg PO TID PRN 10/24/23 12/03/23 History lisinopriL [Zestril] 10 mg PO DAILY 10/24/23 12/03/23 History traMADol HCL 50 mg PO DAILY PRN 10/24/23 12/03/23 History ALPRAZolam [Xanax] 1 mg PO TID PRN 12/03/23 12/03/23 History HYDROcodone/APAP 10-325MG [[place] 1 tab PO Q4HR PRN 12/03/23 12/03/23 History 10-325] Morphine Sulfate ER [Ms Contin] 30 mg PO Q12HR 12/03/23 12/03/23 History Ondansetron [Zofran] 4 mg PO Q8HR PRN 12/03/23 12/03/23 History Allergies Allergy/AdvReac Type Severity Reaction Status Date / Time codeine Allergy Rash/Hives Verified 12/03/23 14:43 Physical Exam Vitals: Vital Signs Temp Pulse Pulse Pulse Resp BP BP 12/04/23 09:28 78 86/54 12/04/23 08:51 85 12/04/23 08:39 89 12/04/23 07:43 97.4 F L 71 16 97/62 12/04/23 01:49 98.0 F 81 18 85/51 12/03/23 20:55 98.4 F 80 20 116/83 12/03/23 20:13 99 12/03/23 20:09 97 12/03/23 19:00 97 16 127/95 12/03/23 17:00 86 18 171/103 12/03/23 16:22 70 18 170/108 12/03/23 14:16 75 20 181/108 12/03/23 12:43 98.2 F 73 18 179/102 BP Pulse Ox 12/04/23 09:28 82/53 12/04/23 08:51 12/04/23 08:39 12/04/23 07:43 95 12/04/23 01:49 94 L 12/03/23 20:55 95 12/03/23 20:13 12/03/23 20:09 12/03/23 19:00 97 12/03/23 17:00 97 12/03/23 16:22 95 12/03/23 14:16 99 12/03/23 12:43 99 Intake and Output 12/03/23 12/04/23 12/04/23 22:59 06:59 14:59 Other: # Voids 1 3 Weight 45.359 kg - Constitutional General appearance: no acute distress, thin - EENT ENT: hearing grossly normal - Respiratory breathing is even and unlabored - Cardiovascular skin warm and dry - Gastrointestinal General gastrointestinal: soft, tenderness Localized gastrointestinal: tender: diffuse - Integumentary Integumentary: no cyanotic - Musculoskeletal Musculoskeletal: generalized weakness - Psychiatric Psychiatric: A&O x's 3 Results CBC & Chem 7: 12/04/23 07:27 12/04/23 07:27 Labs: Abnormal Lab Results - Last 24 Hours (Table) 12/03/23 12/03/23 12/04/23 Range/Units 13:23 13:23 07:27 RDW 16.2 H 16.4 H (11.5-15.5) % Sodium 134 L (137-145) mmol/L Potassium 3.4 L (3.5-5.1) mmol/L Creatinine 0.34 L (0.52-1.04) mg/dL Glucose 103 H (74-99) mg/dL Calcium (8.4-10.2) mg/dL Alkaline Phosphatase 144 H (38-126) U/L 12/04/23 Range/Units 07:27 RDW (11.5-15.5) % Sodium 132 L (137-145) mmol/L Potassium (3.5-5.1) mmol/L Creatinine 0.38 L (0.52-1.04) mg/dL Glucose (74-99) mg/dL Calcium 8.3 L (8.4-10.2) mg/dL Alkaline Phosphatase (38-126) U/L Assessment and Plan (1) Metastatic cancer Current Visit: Yes Status: Acute Priority: High Code(s): C79.9 - SECONDARY MALIGNANT NEOPLASM OF UNSPECIFIED SITE SNOMED Code(s): 121321243 (2) Weakness Current Visit: Yes Status: Acute Code(s): R53.1 - WEAKNESS SNOMED Code(s): 77552659 (3) Liver mass Current Visit: No Status: Acute Priority: High Code(s): R16.0 - HEPATOMEGALY, NOT ELSEWHERE CLASSIFIED SNOMED Code(s): 065245490 Plan: Liver mass -Full workup and history in HPI -Initially presented with abdominal pain, N,V,D, with associated 20lb wt loss. Mass was seen on imaging, 6.2 cm heterogeneously enhancing mass of the left hepatic dome. Small 1.2 cm lesion of the right liver lobe. Small pulmonary nodules at the lower lungs measuring up to 5 mm. Retroperitoneal and upper abdominal adenopathy measuring up to 2.1 cm. New fluid dilatation of the first part of the duodenum. Distance between the SMA and the abdominal aorta is narrowed to 5 mm, possibility of SMA syndrome. Pt had yet to follow up for biopsy. -CT CAP showed scattered pulmonary nodules, enlarging hepatic mass measuring 54 x 55 mm, scattered retroperitoneal lymph nodes -Liver biopsy path positive for non-small cell carcinoma morphological c onsistent with adenocarcinoma, not otherwise specified. Tumor is immunohistochemically positive for CK7 and neg for CK20, CDX2, ROBBIE-3, Estrogen Receptor, Napsin-A, p40, PAX8 and TTF-1. It is further reported that unable to entirely exclude breast, upper GI/pancrreatobiliary or [employer] Super[employer] origin. This tissue had been requested and sent for cancer type ID testing but was declined by her insurance -MRCP reporting retroperitoneal soft tissue mass versus lymphadenopathy conglomerate up to and around the SMA and celiac axis. Dilation of the extrahepatic biliary system, ERCP recommended if concerns for ampullary lesion. Scattered hepatic lesions with dominant left hepatic lobe mass, trace bilateral pleural effusions -EGD performed with esophageal, gastric and duodenal biopsies negative for malignancy --CA125, CEA, CA 15-3 and CA 27-29 were all within normal defined limits -It was previously discussed with patient unfortunately findings are consistent with metastatic disease. Treatment options and prognosis cannot be discussed yet until primary in known. Irregardless of primary disease is not curable but, will be treatable. Intent of any treatment will be palliation of symptoms and prolongation of life. -Plan was for further imaging and workup upon discharge to identify primary site and discuss treatment options and goals of care, but patient/family had decided to transfer care to Oncology in [place]. Records were forwarded at that time -At todays visit, HPI is somewhat limited as patient can not recall specifics since discharge. She states she did f/u with oncology in [place], and per pt, she was told that chemo was her only treatment option and decided at that time that she did want chemotherapy. She thinks she was supposed to f/u with someone else in [place]? Patient does not recall if additional testing was performed to identify primary site and if they had discussed other possible treatments like IO or targeted therapy. She was scheduled to meet with hospice tomorrow but came to the ER due to progressing symptoms -Patient stating she would like to know if there are other possible treatment options other than chemotherapy. Consult has been placed for hospice and is scheduled to meet with pt/family tomorrow morning. Will have to request records/testing from her oncologist, that has been obtained since discharge, so we can have further discussion with patient about her diagnosis, possible treatment options and goals of care if she decides not to proceed with hospice Hx squamous cell lung cancer -Right lung, treated with robotic-assisted right upper lobectomy and lymph node dissection on 08/10/18. Final path, 2 cm squamous cell carcinoma, with 0/7 lymph nodes involved. Margins were negative, with no evidence of pleural invasion. MRI brain neg. No further treatment. -She established care with Dr. Sapp in March 2019. She had a MRI brain and CT CAP which were negative for any evidence of recurrent malignancy. She was placed on surveillance, with repeat scans ordered in 3 months. However, she nev er obtained ordered scans and was subsequently lost to follow up -Liver pathology is not consistent with squamous cell carcinoma so, this is not recurrent/metastatic disease from previous malignancy.
[2023-12-05 16:33] VITALS: BMI 17.2
[2023-12-05] MEDS: TEMAZEPAM 15 MG CAP PO PRN (20:50)
[2023-12-05] MEDS: MELOXICAM 7.5 MG TAB PO PRN (20:50)
[2023-12-05] MEDS: HYDROmorphone 1 MG/ML 1 ML SYRINGE IVP PRN (22:07)
[2023-12-06] MEDS: MAGNESIUM HYDROXIDE 2,400 MG/30 ML CUP PO PRN (05:36)
[2023-12-06] MEDS ORDERED: ONDANSETRON 4 MG TAB PO PRN (12:57)
[2023-12-06] MEDS ORDERED: ALBUTEROL NEBULIZED 2.5 MG/3 ML INHALATION PRN (12:59)
[2023-12-06] MEDS: MORPHINE SULFATE IR 15 MG TABLET PO PRN (16:00)
--- NOTE | 2023-12-06 16:07 | P.PN ---
Subjective Progress Note Date: 12/06/23 Principal diagnosis: Met NSCLC If f/u pt is reporting that she would like to try cancer treatment. She is sitting at the bedside when I spoke to her. She did see a Oncologist in [place]. She was asking about treatment and immunotherapy She did have a PET ordered for tomorrow by Onc in [place], unfortunately this is now cancelled because she is inpt. She is still receiving large amounts of IV dilaudid for abd pain, constantly rates pain 7-9 range. There is not much that gives her relief. It is documented that she ate 100% of breakfast and 75% of lunch, no documented N,V. No BM documented Objective - Vital Signs Vital signs: Vital Signs Temp 98.2 F 12/06/23 12:14 Pulse 65 12/06/23 12:14 Resp 16 12/06/23 12:14 BP 104/63 12/06/23 12:14 Pulse Ox 91 L 12/06/23 12:14 FiO2 Intake & Output 12/05/23 12/06/23 12/06/23 18:59 06:59 18:59 Intake Total 1800 Balance 1800 Weight 45.359 kg Intake: Intake, IV Titration 1200 Amount Sodium Chloride 0.9% 1, 1200 000 ml @ 100 mls/hr IV . Q10H DAPHNE Rx#:[id number] Oral 600 Other: Voiding Method Toilet Toilet Toilet # Voids 2 1 - Constitutional General appearance: Present: average body habitus, cooperative, no acute distress - EENT Eyes: Present: anicteric sclerae, EOMI ENT: Present: hearing grossly normal - Respiratory Respiratory: bilateral: diminished - Cardiovascular Rhythm: regular Heart sounds: normal: S1, S2 Abnormal Heart Sounds: Absent: systolic murmur, diastolic murmur, rub, S3 Gallop, S4 Gallop, click, other - Peripheral edema leg Peripheral Edema: bilateral: None - Gastrointestinal General gastrointestinal: Present: normal bowel sounds, soft, tenderness - Integumentary Integumentary: Present: normal - Neurologic Neurologic: Present: CNII-XII intact - Musculoskeletal Musculoskeletal: Present: strength equal bilaterally - Psychiatric Psychiatric: Present: A&O x's 3, appropriate affect, intact judgment & insight - Labs CBC & Chem 7: 12/04/23 07:27 12/04/23 07:27 Assessment and Plan (1) Metastatic cancer Current Visit: Yes Status: Acute Priority: High Code(s): C79.9 - SECONDARY MALIGNANT NEOPLASM OF UNSPECIFIED SITE SNOMED Code(s): 104689538 (2) Lung cancer Current Visit: No Status: Acute Code(s): C34.90 - MALIGNANT NEOPLASM OF UNSP PART OF UNSP BRONCHUS OR LUNG SNOMED Code(s): 896122177 Plan: Abdominal pain on admit -likely 2/2 liver mass. -Pt had liver biopsy. path positive for non-small cell carcinoma morphological consistent with adenocarcinoma, primary could not be determined. Tissue was requested and sent for cancer type ID testing but, testing was declined by her insurance -She had additional testing including MRCP reporting retroperitoneal soft tissue mass versus lymphadenopathy conglomerate up to and around the SMA and celiac axis. Dilation of the extrahepatic biliary system. EGD performed with esophageal, gastric and duodenal biopsies negative for malignancy -CA125, CEA, CA 15-3 and CA 27-29 were all within normal defined limits -Pt never made a follow up appt to discuss options for treatment. She requested to be seen by Oncology in [place] when she was last seen inpt. Referral was sent. She was seen there and PET was sched for tomorrow and she had a f/u next week with Onc to discuss. PET had to be cancelled because she is inpt. -It was previously discussed with patient unfortunately findings are consistent with metastatic disease. Intent of any treatment will be palliation of symptoms and prolongation of life. -There is documentation that pt requested hospice discussion on admit. After meeting with hospice she has decided that she would like to discuss treatment options -Clarified with pt that she will be returning to [facility] for care. Instructions to contact them on discharge are in DC plan As for pain control -Reviewed case with PharmD -IV to oral narcotic conversions done. Pt MS contin increased to 60mg BID and MSIR 15mg PO Q 6 hours PRN ordered. Discussed with RN that pt needs to be encouraged to use oral regimen so she can be discharged. -Will assess pain control in AM -Additional meds added for prevention of narcotic induced constipation Hx squamous cell lung cancer -Right lung, treated with robotic-assisted right upper lobectomy and lymph node dissection on 08/10/18. Final path, 2 cm squamous cell carcinoma, with 0/7 lymph nodes involved. Margins were negative, with no evidence of pleural invasion. MRI brain neg. No further treatment. -She established care with Dr. Sapp in March 2019. She had a MRI brain and CT CAP which were negative for any evidence of recurrent malignancy. She was placed on surveillance, with repeat scans ordered in 3 months. However, she never obtained ordered scans and was subsequently lost to follow up -Liver pathology is not consistent with squamous cell carcinoma so, this is not recurrent/metastatic disease from previous malignancy. Time with Patient: Greater than 30 (>90 min was spent counseling, coordinating care, reviewing maps, converting IV to PO narcitics with PharmD.)
[2023-12-06] MEDS: hydrOXYzine HCL 25 MG TAB PO PRN (19:45)
[2023-12-06] MEDS: MORPHINE SULFATE ER 60 MG TABLET PO SCH (20:45)
--- NOTE | 2023-12-07 11:28 | CDI ---
Documentation Clarification Form Date: 12/07/2023 11:06:12 AM From: Coretta Gracia RN, CCDS Phone: [phone] Admit Date: 12/03/2023 02:31:00 PM Patient Name: Paige Simmons Visit Number: [id number] Discharge Date: ATTENTION: The Clinical Documentation Specialists (CDI) and [facility] Coding Staff appreciate your assistance in clarifying documentation. Please respond to the clarification below the line at the bottom and electronically sign. The CDI & [facility] Coding staff will review the response and follow-up if needed. Please note: Queries are made part of the Legal Health Record. If you have any questions, please contact the author of this message via ITS. Dr. Ramona Leiva The Registered Dietitian assessment on 12/04 indicates this patient meets criteria for chronic severe malnutrition. Based on this information and the findings below, is there an additional diagnosis that is clinically appropriate for this patient? History/Risk Factors: lung cancer now with metastatic liver cancer, brain aneurysms, smoker, COPD, anxiety, bipolar and depression. Presented with abdominal pain, weakness and decreased oral intake. Clinical Indicators: ED: "Patient is cachectic, in moderate distress from pain." 12/03 Oncology: "no acute distress, thin." Current BMI: 17.2 12/04 RD Consult Assessment: Underweight. Cancer cachexia. Chronic severe malnutrition as evidenced by severe 26% weight loss x1 month and muscle wasting to temporal region. Weight 45.35 kg Height 5 ft 4 in Treatment: pleasure feeds of general healthful diet; monitor po intake; IV Zofran 4mg on 12/03; IV Protonix 40mg IVP BID 12/02-current Supplements: Ensure but patient does not like it Is there an additional diagnosis that is clinically appropriate for this patient? [ ] Severe Protein-Calorie Malnutrition [ ] No additional diagnosis/Not clinically significant [ ] Other condition, please specify [ ] Unable to Determine Severe Protein-Calorie Malnutrition MTDD
[2023-12-07] MEDS: MORPHINE SULFATE IR 15 MG TABLET PO PRN (16:17)
--- NOTE | 2023-12-07 19:08 | P.PN ---
Subjective Progress Note Date: 12/07/23 Principal diagnosis: Met NSCLC If f/u pt is reporting no improvement in abd pain control with increase in long acting morphine. Her abd pain is in the RUQ and epigastric areas. No nausea or vomiting, appetite is good. Objective - Vital Signs Vital signs: Vital Signs Temp 98.1 F 12/07/23 13:11 Pulse 77 12/07/23 13:11 Resp 16 12/07/23 13:11 BP 88/54 12/07/23 13:11 Pulse Ox 93 L 12/07/23 13:11 FiO2 Intake & Output 12/06/23 12/07/23 12/07/23 18:59 06:59 18:59 Intake Total 480 360 Balance 480 360 Intake: Oral 480 360 Other: Voiding Method Toilet Toilet Toilet # Voids 3 1 - Constitutional General appearance: Present: cooperative, no acute distress, thin - EENT Eyes: Present: anicteric sclerae, EOMI ENT: Present: hearing grossly normal - Respiratory Respiratory: bilateral: diminished - Cardiovascular Rhythm: regular Heart sounds: normal: S1, S2 Abnormal Heart Sounds: Absent: systolic murmur, diastolic murmur, rub, S3 Gallop, S4 Gallop, click, other - Peripheral edema leg Peripheral Edema: bilateral: None - Gastrointestinal Localized gastrointestinal: tender: RUQ, epigastric periumbilical - Integumentary Integumentary: Present: normal - Neurologic Neurologic: Present: CNII-XII intact - Musculoskeletal Musculoskeletal: Present: generalized weakness, strength equal bilaterally - Psychiatric Psychiatric: Present: A&O x's 3, appropriate affect, intact judgment & insight - Labs CBC & Chem 7: 12/04/23 07:27 12/04/23 07:27 Assessment and Plan (1) Intractable pain Current Visit: Yes Status: Acute Priority: High Code(s): R52 - PAIN, UNSPECIFIED SNOMED Code(s): 44221971 (2) Metastatic cancer Current Visit: Yes Status: Acute Priority: High Code(s): C79.9 - SECONDARY MALIGNANT NEOPLASM OF UNSPECIFIED SITE SNOMED Code(s): 313104147 (3) Lung cancer Current Visit: No Status: Acute Code(s): C34.90 - MALIGNANT NEOPLASM OF UNSP PART OF UNSP BRONCHUS OR LUNG SNOMED Code(s): 036732168 Plan: Abdominal pain on admit -likely 2/2 liver mass. -Pt had liver biopsy. path positive for non-small cell carcinoma morphological consistent with adenocarcinoma, primary could not be determined. Tissue was requested and sent for cancer type ID testing but, testing was declined by her insurance -She had additional testing including MRCP reporting retroperitoneal soft tissue mass versus lymphadenopathy conglomerate up to and around the SMA and celiac axis. Dilation of the extrahepatic biliary system. EGD performed with esophageal, gastric and duodenal biopsies negative for malignancy -CA125, CEA, CA 15-3 and CA 27-29 were all within normal defined limits -Pt never made a follow up appt to discuss options for treatment. She requested to be seen by Oncology in [place] when she was last seen in. Referral was sent. She was seen there and PET was sched for today with a f/u next week with Onc to discuss. PET had to be cancelled because she is inpt. -It was previously discussed with patient unfortunately findings are consistent with metastatic disease. Intent of any treatment will be palliation of symptoms and prolongation of life. -There is documentation that pt requested hospice discussion on admit. After me eting with hospice she has decided that she would like to discuss treatment options -Clarified with pt that she will be returning to [facility] for care. Instructions to contact them on discharge are in DC plan As for pain control -Patient reports that there are no improvements in her abdominal pain -Discussed with patient consulting pain management and possible consideration for nerve block. Patient requested increase in her current medications first. We discussed concerns for sedation as well as ability to function on such high doses of narcotics. Patient reports that her goal of care is to not be in any pain. We will continue to work with patient's pain until it is at an acceptable level for her. -Short acting morphine, which she has been on, dose and frequency increased. Extended release morphine dose was increased yesterday, no changes at this time -Assess pain control in AM -Additional meds added for prevention of narcotic induced constipation. Patient reports a bowel movement 2 days ago, there is no documentation of the same. Hx squamous cell lung cancer -Right lung, treated with robotic-assisted right upper lobectomy and lymph node dissection on 08/10/18. Final path, 2 cm squamous cell carcinoma, with 0/7 lymph nodes involved. Margins were negative, with no evidence of pleural invasion. MRI brain neg. No further treatment. -She established care with Dr. Sapp in March 2019. She had a MRI brain and CT CAP which were negative for any evidence of recurrent malignancy. She was placed on surveillance, with repeat scans ordered in 3 months. However, she never obtained ordered scans and was subsequently lost to follow up -Liver pathology is not consistent with squamous cell carcinoma so, current malignancy is not recurrent/metastatic disease from previous malignancy. attests: I have seen and examined pt, performed H&P, developed impression and plan of care. Discussed with dictator. Agree with documentation, dictated as a scribe.
[2023-12-08 02:44] VITALS: RESP 16
[2023-12-08] MEDS: bisacodyL 10 MG SUPP RECTAL STA (10:43)
[2023-12-08] MEDS ORDERED: CALCIUM CARBONATE 500 MG CHEWABLE PO PRN (11:13)
[2023-12-08 13:09] VITALS: BP 90/56; PULSE 82; TEMP 99
--- NOTE | 2023-12-08 20:24 | DS ---
DISCHARGE SUMMARY CHIEF COMPLAINT: Intractable abdominal pain and carcinoma. HISTORY OF PRESENT ILLNESS AND PHYSICAL EXAMINATION: Details of this lady's history and physical can be found in the initial workup. LABORATORY STUDIES: While she was in the hospital, she had laboratory studies, details of which can be found in the laboratory section of her chart. COURSE IN THE HOSPITAL: After admission, she was placed on bedrest, started on intravenous fluids and started on narcotic analgesics. She was seen and followed by Oncology. It took significant amounts of opioids to control her pain. In the meantime, Oncology followed her case to make a determination as to whether or not she was a candidate for chemotherapy and what drugs to be used. Finally, they felt that she could be discharged to outpatient management on the and she will go home on her usual activity plus opioid analgesics. She will follow up with us as well as Oncology and treatment will be outlined by their service. FINAL DIAGNOSES: 1. Intractable abdominal pain. 2. Carcinoma, metastatic to liver. 3. History of carcinoma of the lung. 4. Chronic obstructive pulmonary disease. 5. Intractable pain. OPERATIONS: None. CONSULTATIONS: Oncology. MMODL / IJN: [id number] /
--- NOTE | 2023-12-08 22:35 | P.PN ---
Subjective Progress Note Date: 12/08/23 Principal diagnosis: Met NSCLC If f/u pt continues to report that she has no improvements in abd pain, states in the RUQ and epigastric areas. Today she also reports some gas and indigestion. When she previously reported BM she states now that it was not much stool and it was very hard. No nausea or vomiting, she is fully ambulatory. She states she can lay in bed at home and be in pain so, she wants to be discharged Objective - Vital Signs Vital signs: Vital Signs Temp 97.6 F 12/08/23 07:52 Pulse 72 12/08/23 11:02 Resp 16 12/08/23 07:52 BP 112/70 12/08/23 07:52 Pulse Ox 93 L 12/08/23 07:52 FiO2 Intake & Output 12/07/23 12/08/23 12/08/23 18:59 06:59 18:59 Intake Total 1440 Balance 1440 Intake: Oral 1440 Other: Voiding Method Toilet Toilet # Voids 2 1 - Constitutional General appearance: Present: cooperative, no acute distress, thin - EENT Eyes: Present: anicteric sclerae, EOMI ENT: Present: hearing grossly normal - Respiratory Details: resp even and unlabored - Cardiovascular Details: skin warm and dry to touch - Peripheral edema leg Peripheral Edema: bilateral: None - Gastrointestinal General gastrointestinal: Present: soft, tenderness Localized gastrointestinal: tender: RUQ - Integumentary Integumentary: Present: normal - Neurologic Neurologic: Present: CNII-XII intact - Musculoskeletal Musculoskeletal Comment(s): pt is independently mobile Musculoskeletal: Present: strength equal bilaterally - Psychiatric Psychiatric: Present: A&O x's 3, appropriate affect, intact judgment & insight - Labs CBC & Chem 7: 12/04/23 07:27 12/04/23 07:27 Assessment and Plan (1) Intractable pain Status: Acute Priority: High Code(s): R52 - PAIN, UNSPECIFIED SNOMED Cod e(s): 14373295 (2) Metastatic cancer Status: Acute Priority: High Code(s): C79.9 - SECONDARY MALIGNANT NEOPLASM OF UNSPECIFIED SITE SNOMED Code(s): 393437577 (3) Lung cancer Status: Acute Code(s): C34.90 - MALIGNANT NEOPLASM OF UNSP PART OF UNSP BRONCHUS OR LUNG SNOMED Code(s): 628422057 Plan: Abdominal pain on admit -likely 2/2 liver mass. -Pt had liver biopsy. path positive for non-small cell carcinoma morphological consistent with adenocarcinoma, primary could not be determined. Tissue was requested and sent for cancer type ID testing but, testing was declined by her insurance -She had additional testing including MRCP reporting retroperitoneal soft tissue mass versus lymphadenopathy conglomerate up to and around the SMA and celiac axis. Dilation of the extrahepatic biliary system. EGD performed with esopha geal, gastric and duodenal biopsies negative for malignancy -CA125, CEA, CA 15-3 and CA 27-29 were all within normal defined limits -Pt never made a follow up appt to discuss options for treatment. She requested to be seen by Oncology in [place] when she was last seen in. She missed her PET that was scheduled there. Dr name and ofc number in DC plan with instructions to call there as soon as she gets home to reschedule scan and appts. Pt verbalized understanding -It was previously discussed with patient unfortunately findings are consistent with metastatic disease. Intent of any treatment will be palliation of symptoms and prolongation of life. As for pain control -Patient reports that there are no improvements in her abdominal pain -Pt refused Pain mgmt consult, she wanted pain med dose adjustments 1st. Well, this did not help per pt. -She is now requesting to go home. Explained that she will be given a 7 day Rx for the narcotics that she has been taking here. Beyond that she will have to discuss with her Oncologist in [place]. She verbalized understanding -Encouraged continuous use of meds for prevention of narcotic induced constipation. Hx squamous cell lung cancer -Right lung, treated with robotic-assisted right upper lobectomy and lymph node dissection on 08/10/18. Final path, 2 cm squamous cell carcinoma, with 0/7 lymph nodes involved. Margins were negative, with no evidence of pleural invasion. MRI brain neg. No further treatment. -She established care with Dr. Sapp in March 2019. She had a MRI brain and CT CAP which were negative for any evidence of recurrent malignancy. She was placed on surveillance, with repeat scans ordered in 3 months. However, she never obtained ordered scans and was subsequently lost to follow up -Liver pathology is not consistent with squamous cell carcinoma so, current malignancy is not recurrent/metastatic disease from previous malignancy. Dr marsests: I have seen and examined pt, performed H&P, developed impression and plan of care. Discussed with dictator. Agree with documentation, dictated as a scribe.
== END 2023-12-08 14:03 | disposition home or self-care (01) | DRG 435 ==
LOC: EC 12:40 → 5NMEDONC 14:31
PROVIDERS: ADMIT Family Medicine; ATTEND Family Medicine
DX: C78.7 Secondary malignant neoplasm of liver and intrahepatic bile duct (principal); E43 Unspecified severe protein-calorie malnutrition; F31.30 Bipolar disorder, current episode depressed, mild or moderate severity, unspecified; Z68.1 Body mass index [BMI] 19.9 or less, adult; C34.90 Malignant neoplasm of unspecified part of unspecified bronchus or lung; I25.10 Atherosclerotic heart disease of native coronary artery without angina pectoris; E86.0 Dehydration; E87.6 Hypokalemia; I10 Essential (primary) hypertension; F41.9 Anxiety disorder, unspecified; Z85.118 Personal history of other malignant neoplasm of bronchus and lung; F10.21 Alcohol dependence, in remission; M06.9 Rheumatoid arthritis, unspecified; M19.90 Unspecified osteoarthritis, unspecified site; J44.9 Chronic obstructive pulmonary disease, unspecified; Z51.5 Encounter for palliative care; Z79.1 Long term (current) use of non-steroidal anti-inflammatories (NSAID); Z79.51 Long term (current) use of inhaled steroids; Z79.890 Hormone replacement therapy; F31.9 Bipolar disorder, unspecified; F17.210 Nicotine dependence, cigarettes, uncomplicated; Z79.899 Other long term (current) drug therapy; Z86.73 Personal history of transient ischemic attack (TIA), and cerebral infarction without residual deficits; Z88.5 Allergy status to narcotic agent; Z90.49 Acquired absence of other specified parts of digestive tract
CPT/HCPCS: 36415; 80048; 80053; 85025; 94640; 96361; 96374; 96375; 96376; 99285